=== PATIENT | female | born 1975 | race Caucasian/White ===

== ENCOUNTER 2020-06-09 10:00 | Outpatient (CLI) | payer BC, SELFPAY ==
[2020-06-09 12:09] LABS: Basophils # 0.2 10^3/uL (0.0-0.1); Basophils % 0.8 %; Eosinophils % 0.2 %; Lymphocytes # 3.4 10^3/uL (0.8-4.8); Mean Corpuscular HGB Conc 31.7 g/dL (30.0-36.0); Mean Corpuscular Hemoglobin 27.9 pg (28.0-34.0); Mean Platelet Volume 9.3 fL (7.4-10.4); Monocytes # 1.1 10^3/uL (0.2-0.9); Monocytes % 5.9 %; Neutrophils # 13.49 10^3/uL (1.8-7.7); Neutrophils % 71.3 %; Nucleated Red Blood Cells % 0.2 %; Platelet Count 199 10^3/cmm (130-400); Red Blood Count 4.66 10^6/uL (4.1-5.3); Red Cell Distribution Width 14.3 % (12.1-15.1); White Blood Count 18.9 10^3/uL (4.0-10.0)
--- NOTE | 2020-06-09 16:47 | ONC CON_ITS ---
Dr. Martin New Patient Note Patient: Jyoti Salazar Unit #: [id number]: 1975 Dicatated By: Wisam Martin M.D.Date of Visit: Jun 09, 2020 Onc MED New Patient/Consult Referring Physician: Referred Self Chief Complaint: Breast cancer. History of Present Illness: This is a 44-year-old woman with multifocal grade 2 invasive cancer of the right breast, stage IA (T1c, N1mi, M0), ER/IA negative and HER-2/kimberley positive. She had presented with redness, pain, and swelling in the right breast. Bilateral mammograms on 03/29/2020 showed no suspicious masses, calcifications, or other significant findings. Right breast ultrasound showed a 0.7 x 0.6 x 1.1 cm irregular hypoechoic mass at the 12 o'clock position of the right breast located 1 cm from the nipple. At the 12:00 subareolar region there was a 0.7 x 0.3 x 0.6 cm hypoechoic irregular mass. Both demonstrated internal vascularity, suspicious for malignancy. She underwent ultrasound guided biopsy of both lesions on 04/02/2020. Pathology showed invasive breast carcinoma of no special type, grade 2 out of 3. The breast prognostic profile showed ER and IA negative. HER-2/kimberley was positive, 3+ by IHC. CORBY 67 was high at 16%. Pathology on the subareolar lesion apparently showed papilloma. On 04/22/2020 she underwent right axillary lumpectomy at 3 sites together with right sentinel axillary lymph node biopsy/axillary node sampling. Pathology showed grade 2 invasive ductal carcinoma at 2 sites, one measuring 1.1 cm in greatest dimension and the other measuring 0.9 cm in greatest dimension. The larger lesion had associated high-grade DCIS, but not extensive. The smaller lesion showed focal extension of tumor to the inked lateral resection margin. There was no involvement in 1 sentinel axillary lymph node. There was micro metastatic carcinoma involving 1 of 7 nonsentinel lymph nodes. It measured 0.6 mm. The 3rd lumpectomy specimen showed intraductal papilloma with usual ductal hyperplasia. She then underwent bilateral mastectomy on 05/05/2020. She had medical oncology consultation with Dr. Kira Dominguez on 05/03/2020. She was recommended to undergo adjuvant chemotherapy with 6 cycles of TCH. She underwent placement of Port-A-Cath venous access device on 05/24/2020, and she began cycle 1 of TCH on 05/27/2020. She was given first cycle prophylaxis with Neulasta. Her baseline echocardiogram on 05/04/2020 showed normal LV systolic function with ejection fraction estimated at 55 to 60%. She has now moved to this area and she is seen today to continue with her adjuvant chemotherapy. She has been feeling good generally. Thus far she has had very few side effects with her chemotherapy. She had no nausea/vomiting or other acute toxicities. She was fatigued for just a day or so after she went off the steroid. She then developed some mild constipation, managed adequately with a stool softener. Her mouth felt like it had a film in it, but that subsequently resolved. She had some slight, transient epistaxis. She had a little bit of rectal bleeding over the past weekend, and that also has resolved. 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 She has had no other apparent side effects. Past Medical History: Her medical history includes anxiety, asthma, breast cancer, gastroesophageal reflux disease, hyperlipidemia, hypertension, irritable bowel syndrome, polycystic ovarian disease, and type II diabetes. Past Surgical History: She underwent ultrasound-guided biopsy of the right breast on 03/31/2020, right breast lumpectomy x 3 with axillary sentinel lymph node biopsy/axillary lymph node sampling on 04/22/2020, and bilateral mastectomy on 05/05/2020. Her other surgical/procedural history includes bilateral tympanostomy tube placement, cholecystectomy, hip resection arthroplasty, tonsillectomy, bilateral breast reconstruction cleanout on 05/17/2020, and port placement on 05/24/2020. Medications: Acetaminophen 2 (325 mg) Tablet, chewable Oral q 6 hours PRN, Albuterol Sulfate 1 Puff(s) (of 108 (90 base) mcg/act) Aerosol Powder, Breath Activated Inhalation q 6 hours, Cholecalciferol 1 (10 mcg ) Tablet, chewable Oral daily, Dapagliflozin-metFORMIN HCl ER 1 (5-1000 mg) Tablet SR 24 HR Oral b.i.d., Dexamethasone (4 mg) Tablet Oral Take as Directed, Flonase 2 [place](s) (of 50 mcg/act) Suspension Nasal daily, Lipitor 1 (20 mg) Tablet Oral at bedtime, Meclizine HCl 1 (25 mg) Tablet Oral PRN, Ondansetron HCl 1 (8 mg) Tablet Oral q 8 hours PRN, Ozempic (0.25 or 0.5 MG/DOSE) 0.5 mg (of 2 mg/1.5mL) Subcutaneous q on Sa, Paxil 1 (10 mg) Tablet Oral at bedtime, Prochlorperazine Maleate 1 (10 mg) Tablet Oral q 6 hours PRN, Singulair 1 (10 mg) Tablet Oral daily Allergies: Iodinated Contrast Dye Social History: Ms. Salazar is . She is a non-smoker. She does not drink alcohol. Family History: Both parents are still living at age 67 and both have diabetes and coronary artery disease. A 42-year-old brother has hypertension. Two sisters are in good health. Her paternal father had stomach cancer, an aunt had breast cancer, and a cousin had thyroid cancer. Review Of Symptoms: Constitutional - She had some fatigue for a day or so after going off steroid. Energy otherwise has been good. She has good appetite. She has not had fever. She does not complain of hot flashes. She has occasional sweating at night. ECOG score is 0, Eyes - No change in vision, ENMT - No hearing loss or tinnitus. She has some sinus congestion/drainage. She had had had some slight nosebleeds. Her mouth felt like it had a film and it, but that resolved. No sore throat or difficulty swallowing, Hematologic/Lymphatic - No abnormal bruising, Respiratory - No shortness of breath. No cough. No pleuritic pain or hemoptysis, Cardiovascular - No angina pain. No palpitations, Gastrointestinal - She has not had nausea/vomiting. She has occasional acid reflux, managed adequately with Tums. She tends to have loose stools associated with her irritable bowel syndrome. She had mild constipation following the chemotherapy. She had no diarrhea. Over the last weekend she had some slight rectal bleeding, Genitourinary (F) - No dysuria or hematuria. No urinary frequency. No urgency or incontinence, Musculoskeletal - No joint or bone pain, Integumentary - She has not had a skin rash. She does have a history of eczema, Neurologic - No headache or dizziness. She has had a little bit of neuropathy in her feet with the diabetes. It has not gotten any worse since the chemotherapy, Psychiatric - She has some anxiety. No depression. No insomnia. Vital Signs: Performed on Jun 09, 2020 10:55: 0, 37.04 (HIGH), 2.07 sq.m, 65 in, 100 %, 95 /min, 16 /min, 128/80 mm(hg), 97.8 F (LOW), and 222.6 lbs (HIGH). Physical Examination: Constitutional - She looks good generally, Eyes - Sclerae nonicteric. Conjunctivae clear, ENMT - No lesions noted in the oral cavity, Neck - No mass or thyromegaly, Hematologic/Lymphatic - No cervica or clavicular adenopathy, Respiratory - Lungs are clear with good air movement bilaterally, Cardiovascular - Heart rhythm is regular. There is no murmur, gallop, or rub noted, Breasts - There is 1 small area in the right mastectomy incision which is still open. It is otherwise well-healed. The left mastectomy incision appears well-healed. There are no chest wall lesions noted. There is no axillary adenopathy, Abdomen - Mildly distended but soft. Liver and spleen are not enlarged. There is no abdominal mass or ascites noted and there is no inguinal adenopathy, Back/Spine - No spine or CVA tenderness noted, Extremities - No edema. Pedal pulses are palpable bilaterally, Integumentary - No rashes. No suspicious skin lesions noted, Neurologic - No focal neurologic deficits noted. Lab/Imaging: Test performed on Jun 09, 2020 11:43 WBC 18.9 10 3/uL RBC 4.66 10 6/uL HGB 13.0 g/dL HCT 41.0 % MCV 88.0 fL MCH 27.9 pg MCHC 31.7 g/dL RDW 14.3 % Platelet Count 199 10 3/cmm MPV 9.3 fL Neutrophils 13.49 10 3/uL Lymphocytes 3.4 10 3/uL Monocytes 1.1 10 3/uL Eosinophils 0.0 10 3/uL Basophils 0.2 10 3/uL Neutrophil % 71.3 % Lymphocyte % 18.0 % Monocyte % 5.9 % Eosinophil % 0.2 % Basophils % 0.8 % NRBC % 0.2 % Problem List: 1. Multifocal grade 2 invasive cancer of the right breast, stage IA (T1c, N1mi, M0), ER/IA negative and HER-2/kimberley positive. 2. Type 2 diabetes. 3. Hyperlipidemia. 4. GERD. 5. Irritable bowel syndrome. 6. Mild asthma. 7. History of polycystic ovarian syndrome. 8. Anxiety. Problems Addressed with this Encounter and Plan: 1. Multifocal grade 2 invasive cancer of the right breast, stage IA (T1c, N1mi, M0), ER/IA negative and HER-2/kimberley positive. Her initial treatment included ultrasound guided biopsy of the right breast followed by right breast lumpectomy with axillary sentinel lymph node biopsy/axillary node sampling on 04/22/2020 and subsequent bilateral mastectomy on 05/05/2020. She is now undergoing adjuvant chemotherapy with 6 cycles of TCH. She began cycle 1 on 05/27/2020. Thus far she has been able to tolerate her chemotherapy with very minimal toxicity. She will have a CBC today to assess her blake blood counts. She will return on 06/17/2020 for her second cycle of treatment. It will be administered full dosages and with Neulasta. She also will continue the same steroid prophylaxis. 2. Type 2 diabetes. This had been poorly controlled and it is now further aggravated by the steroid requirement with her chemotherapy. As such, I will arrange endocrinology referral to Dr. Duran for diabetes management. Signed By: Wisam Martin M.D. <<Signature on File>>
== END 2020-06-09 10:01 | disposition home or self-care (01) ==
LOC: ONCMED 10:05
PROVIDERS: Visit Provider Internal Medicine Medical Oncology
DX: C50.811 Malignant neoplasm of overlapping sites of right female breast (principal); Z17.1 Estrogen receptor negative status [ER-]; E11.9 Type 2 diabetes mellitus without complications; E78.5 Hyperlipidemia, unspecified; K21.9 Gastro-esophageal reflux disease without esophagitis; K58.9 Irritable bowel syndrome, unspecified; J45.20 Mild intermittent asthma, uncomplicated; E28.2 Polycystic ovarian syndrome; F41.9 Anxiety disorder, unspecified; Z79.899 Other long term (current) drug therapy
CPT/HCPCS: 36591; 85025; 99204

== ENCOUNTER 2020-06-17 06:22 | Outpatient (CLI) | payer BC, SELFPAY ==
[2020-06-17 09:53] LABS: Alanine Aminotransferase 33 U/L (0-33); Albumin Level 4.7 g/dL (3.5-5.2); Alkaline Phosphatase 121 IU/L (35-105); Anion Gap 16.9 (5-19); Aspartate Amino Transferase 12 U/L (0-32); Blood Urea Nitrogen 19 mg/dL (6-20); Calcium 10.1 mg/dL (8.5-10.5); Carbon Dioxide 24 mmol/L (22-29); Chloride 98 mmol/L (98-107); Globulin 2.8 g/dL (1.3-4.6); Glucose 264 mg/dL (65-115); Osmolality Calculated 291 mOsm/kg (285-295); Potassium 3.9 mmol/L (3.5-5.1); Sodium 135 mmol/L (136-145); Total Bilirubin 0.3 mg/dL (0.15-1.2); Total Protein 7.5 g/dL (6.6-8.7)
[2020-06-17 09:54] LABS: Basophils # 0.1 10^3/uL (0.0-0.1); Basophils % 0.2 %; Hematocrit 39.5 % (37.0-47.0); Hemoglobin 12.6 g/dL (11.5-15.3); Lymphocytes # 2.2 10^3/uL (0.8-4.8); Mean Corpuscular HGB Conc 31.9 g/dL (30.0-36.0); Mean Corpuscular Hemoglobin 27.9 pg (28.0-34.0); Mean Corpuscular Volume 87.4 fL (81-99); Mean Platelet Volume 9.6 fL (7.4-10.4); Monocytes # 1.7 10^3/uL (0.2-0.9); Monocytes % 6.2 %; Neutrophils # 23.42 10^3/uL (1.8-7.7); Neutrophils % 84.3 %; Nucleated Red Blood Cells % 0 %; Platelet Count 370 10^3/cmm (130-400); Red Blood Count 4.52 10^6/uL (4.1-5.3); Red Cell Distribution Width 15.3 % (12.1-15.1); White Blood Count 27.8 10^3/uL (4.0-10.0)
[2020-06-17] MEDS: acetaminophen 325 mg Tablet 650 MG PO (11:05)
[2020-06-17] MEDS: famotidine 20 mg/2 mL INJ IVP (11:07)
[2020-06-17] MEDS: sodium chloride 0.9% 250 ML 75 ML IV (11:07)
[2020-06-17] MEDS: palonosetron 0.25 mg/5 mL SDV IVP (11:10)
[2020-06-17] MEDS: diphenhydrAMINE 50 mg/mL SDV 1mL 25 MG IV (11:27)
[2020-06-17] MEDS: sodium chloride 0.9% (100 ml) 100 ML 500 ML (11:27)
[2020-06-17] MEDS: pegfilgrastim 6 mg/0.6 mL Kit (onpro) SUBCUT (15:17)
== END 2020-06-17 06:23 | disposition home or self-care (01) ==
LOC: ONCMED 06:29
PROVIDERS: PCP Nurse Practitioner; Visit Provider Internal Medicine Medical Oncology
DX: Z51.11 Encounter for antineoplastic chemotherapy (principal); C50.811 Malignant neoplasm of overlapping sites of right female breast; Z17.1 Estrogen receptor negative status [ER-]; E11.9 Type 2 diabetes mellitus without complications; E78.5 Hyperlipidemia, unspecified; K21.9 Gastro-esophageal reflux disease without esophagitis; F41.9 Anxiety disorder, unspecified; E28.2 Polycystic ovarian syndrome
CPT/HCPCS: 80053; 85025; 96367; 96372; 96375; 96413; 96417; J1100; J1200; J1453; J2469; J2505; J3490; J7050; J9045; J9171; J9355

== ENCOUNTER 2020-07-07 06:09 | Outpatient (CLI) | payer BC, SELFPAY ==
[2020-07-07 10:14] LABS: Basophils % 0.4 %; Hematocrit 40.7 % (37.0-47.0); Hemoglobin 12.7 g/dL (11.5-15.3); Lymphocytes # 0.9 10^3/uL (0.8-4.8); Lymphocytes % 10.9 %; Mean Corpuscular HGB Conc 31.2 g/dL (30.0-36.0); Mean Corpuscular Hemoglobin 28.1 pg (28.0-34.0); Mean Platelet Volume 8.8 fL (7.4-10.4); Monocytes # 0.2 10^3/uL (0.2-0.9); Monocytes % 2.7 %; Neutrophils # 6.95 10^3/uL (1.8-7.7); Neutrophils % 85.3 %; Nucleated Red Blood Cells % 0 %; Platelet Count 227 10^3/cmm (130-400); Red Blood Count 4.52 10^6/uL (4.1-5.3); Red Cell Distribution Width 16.7 % (12.1-15.1); White Blood Count 8.2 10^3/uL (4.0-10.0)
[2020-07-07 10:44] LABS: Alanine Aminotransferase 48 U/L (0-33); Albumin Level 4.5 g/dL (3.5-5.2); Alkaline Phosphatase 113 IU/L (35-105); Anion Gap 14.3 (5-19); Aspartate Amino Transferase 39 U/L (0-32); Blood Urea Nitrogen 12 mg/dL (6-20); Calcium 9.3 mg/dL (8.5-10.5); Carbon Dioxide 26 mmol/L (22-29); Chloride 101 mmol/L (98-107); Globulin 2.7 g/dL (1.3-4.6); Glucose 239 mg/dL (65-115); Osmolality Calculated 292 mOsm/kg (285-295); Potassium 4.3 mmol/L (3.5-5.1); Sodium 137 mmol/L (136-145); Total Bilirubin 0.3 mg/dL (0.15-1.2); Total Protein 7.2 g/dL (6.6-8.7)
== END 2020-07-07 06:10 | disposition home or self-care (01) ==
LOC: ONCMED 06:10
PROVIDERS: PCP Nurse Practitioner; Visit Provider Internal Medicine Medical Oncology
DX: C50.811 Malignant neoplasm of overlapping sites of right female breast (principal); Z17.1 Estrogen receptor negative status [ER-]
CPT/HCPCS: 36591; 80053; 85025

== ENCOUNTER 2020-07-08 05:50 | Outpatient (CLI) | payer BC, SELFPAY ==
[2020-07-08] MEDS: acetaminophen 325 mg Tablet 650 MG PO (12:00)
[2020-07-08] MEDS: sodium chloride 0.9% 250 ML 75 ML IV (12:05)
[2020-07-08] MEDS: famotidine 20 mg/2 mL INJ IVP (12:05)
[2020-07-08] MEDS: palonosetron 0.25 mg/5 mL SDV IV (12:23)
[2020-07-08] MEDS: sodium chloride 0.9% (100 ml) 100 ML 400 ML (12:40)
[2020-07-08] MEDS: diphenhydrAMINE 50 mg/mL SDV 1mL 25 MG IV (12:40)
[2020-07-08] MEDS: fosaprepitant 150 MG in sodium chloride 0.9% 150 ML 300 MG IV (13:01)
[2020-07-08] MEDS: pegfilgrastim 6 mg/0.6 mL Kit (onpro) SUBCUT (16:25)
--- NOTE | 2020-07-17 15:09 | ONC FU_ITS ---
Elysia Blackman Patient Note Patient: Jyoti Salazar Unit #: [id number]: 1975 Dictated By: Cortney LarsonDate of Visit: Jul 08, 2020 Onc MED Follow-Up/Prog Note Chief Complaint: Breast cancer. History of Present Illness: Ms Salazar is a 44-year-old woman with multifocal grade 2 invasive cancer of the right breast, stage IA (T1c, N1mi, M0), ER/[place] negative and HER-2/kimberley positive. She had presented with redness, pain, and swelling in the right breast. Bilateral mammograms on 03/29/2020 showed no suspicious masses, calcifications, or other significant findings. Right breast ultrasound showed a 0.7 x 0.6 x 1.1 cm irregular hypoechoic mass at the 12 o'clock position of the right breast located 1 cm from the nipple. At the 12:00 subareolar region there was a 0.7 x 0.3 x 0.6 cm hypoechoic irregular mass. Both demonstrated internal vascularity, suspicious for malignancy. She underwent ultrasound guided biopsy of both lesions on 04/02/2020. Pathology showed invasive breast carcinoma of no special type, grade 2 out of 3. The breast prognostic profile showed ER and [place] negative. HER-2/kimberley was positive, 3+ by IHC. CORBY 67 was high at 16%. Pathology on the subareolar lesion apparently showed papilloma. On 04/22/2020 she underwent right axillary lumpectomy at 3 sites together with right sentinel axillary lymph node biopsy/axillary node sampling. Pathology showed grade 2 invasive ductal carcinoma at 2 sites, one measuring 1.1 cm in greatest dimension and the other measuring 0.9 cm in greatest dimension. The larger lesion had associated high-grade DCIS, but not extensive. The smaller lesion showed focal extension of tumor to the inked lateral resection margin. There was no involvement in 1 sentinel axillary lymph node. There was micro metastatic carcinoma involving 1 of 7 nonsentinel lymph nodes. It measured 0.6 mm. The 3rd lumpectomy specimen showed intraductal papilloma with usual ductal hyperplasia. She then underwent bilateral mastectomy on 05/05/2020. She had medical oncology consultation with Dr. Kira Dominguez on 05/03/2020. She was recommended to undergo adjuvant chemotherapy with 6 cycles of TCH. She underwent placement of Port-A-Cath venous access device on 05/24/2020, and she began cycle 1 of TCH on 05/27/2020. She was given first cycle prophylaxis with Neulasta. Her baseline echocardiogram on 05/04/2020 showed normal LV systolic function with ejection fraction estimated at 55 to 60%. She has now moved to this area and she was seen by Dr Martin to continue with her adjuvant chemotherapy. Her last chemotherapy with carboplatin and docetaxel trastuzumab was on June 17, 2020. She is tolerating it well overall. She states she has been feeling good overall. Thus far she has had very few side effects with her chemotherapy. She denies any fever or chills. She denies any shortness of breath or cough. She denies hemoptysis. She has had no further epistasis. She denies any mouth sores or sore throat. She states she is eating good and energy is good overall. She had no nausea/vomiting or other acute toxicities. She was fatigued for just a day or so after she went off the steroid. She then developed some mild constipation, managed adequately with a stool softener. 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 She has had no other apparent side effects. Her ECOG is 1. Past Medical History: Anxiety Asthma Breast cancer Gastroesophageal reflux disease Hyperlipidemia Hypertension Irritable bowel syndrome Polycystic ovarian disease Type II diabetes Past Surgical History: Bilateral tympanostomy tube placement Cholecystectomy Hip resection arthroplasty Tonsillectomy Port placement in 2020 Bilateral breast reconstruction cleanout in 2020 Bilateral mastectomy in 2019 Right breast lumpectomy x 3 with axillary sentinel lymph node biopsy/axillary lymph node sampling in 2019 Ultrasound-guided biopsy of the right breast in 2019 Allergies: Iodinated Contrast Dye Medications: Acetaminophen 2 (325 mg) Tablet, chewable Oral q 6 hours PRN Albuterol Sulfate 1 Puff(s) (of 108 (90 base) mcg/act) Aerosol Powder, Breath Activated Inhalation q 6 hours Cholecalciferol 1 (10 mcg ) Tablet, chewable Oral daily Dapagliflozin-metFORMIN HCl ER 1 (5-1000 mg) Tablet SR 24 HR Oral b.i.d. Dexamethasone (4 mg) Tablet Oral Take as Directed Flonase 2 [place](s) (of 50 mcg/act) Suspension Nasal daily Lipitor 1 (20 mg) Tablet Oral at bedtime Meclizine HCl 1 (25 mg) Tablet Oral PRN Ondansetron HCl 1 (8 mg) Tablet Oral q 8 hours PRN Ozempic (0.25 or 0.5 MG/DOSE) 0.5 mg (of 2 mg/1.5mL) Subcutaneous q on Sa Paxil 1 (10 mg) Tablet Oral at bedtime Prochlorperazine Maleate 1 (10 mg) Tablet Oral q 6 hours PRN Singulair 1 (10 mg) Tablet Oral daily Family History: Ms. Salazar's mother is alive: congestive heart failure, and type II diabetes, and hypertension. Ms. Housers father is alive: heart disease, and hypertension, and type II diabetes. Ms. Salazar has 1 brother who is alive: hypertension. She has 2 sisters: 2 alive. She has 1 maternal aunt who is alive: breast cancer. Both parents are still living at age 67 and both have diabetes and coronary artery disease. A 42-year-old brother has hypertension. Two sisters are in good health. Her paternal father had stomach cancer, an aunt had breast cancer, and a cousin had thyroid cancer. Social History: Ms. Salazar is . Ms. Salazar has never smoked. She has no history of drinking. She is a non-smoker. She does not drink alcohol. Review Of Symptoms: Constitutional Denies fevers, chills, night sweats, excessive fatigue or weight loss. Allergic/Immunologic No reactions. Eyes Denies significant visual changes. No diplopia. No amaurosis. ENMT Denies changes in hearing, sore throat, mouth sores, difficulty or changes in swallowing ability, and/or sinus drainage. Hematologic/Lymphatic Denies easy bruising or bleeding. The patient denies any tender or palpable lymph nodes. Respiratory Denies dyspnea on exertion, chest pain, cough or hemoptysis. Denies orthopnea. Cardiovascular Denies anginal chest pain, palpitations or orthopnea. Gastrointestinal Denies nausea, vomiting, diarrhea, GI bleeding, or constipation. Denies change in bowel habits and/or stool color, no heartburn or early satiety. Genitourinary (F) No hematuria, hesitancy, incontinence, vaginal bleeding, discharge or other problems with urination. Musculoskeletal Denies joint pain, swelling or redness. No decreased range of motion. Integumentary Denies chronic rashes, inflammation, ulcerations or skin changes. Neurologic Denies headache, blurred vision, and no areas of focal weakness or numbness. Normal gait. No sensory problems. Psychiatric Denies insomnia, depression, javier or mood swings. Vital Signs: Performed on Jul 08, 2020 10:48 Height - 65.00 in Weight - 223.0 lbs (HIGH) BSA - 2.07 sq.m BMI - 37.11 (HIGH) Temperature - 97.8 F (LOW) Pulse - 95 /min Respiration - 19 /min BP - 154/80 mm(hg) (HIGH) O2 Sat - 98 % Pain - 0,1 - No physically strenuous activity, but ambulatory and able to carry out light or sedentary work (e.g. office work, light house work). (ECOG) Physical Examination: Constitutional Alert, oriented, no acute distress. Skin pink, warm and dry. Head Normocephalic; atraumatic. Eyes Conjunctivae and sclerae are clear and without icterus. Pupils are reactive and equal. Hematologic/Lymphatic No petechiae or purpura. No tender or palpable lymph nodes in the cervical or supraclavicular areas. Respiratory Lungs are clear to auscultation without rhonchi or wheezing. Cardiovascular Regular rate and rhythm of heart without murmurs,clicks, gallops or rubs. Back/Spine Non-tender to palpation. Extremities No visible deformities, no cyanosis, clubbing or edema. Musculoskeletal No tenderness or swelling, normal range of motion without obvious weakness. Integumentary No rashes or lesions. Neurologic No sensory or motor deficits, normal cerebellar function, normal gait. Psychiatric Alert and oriented times three. Coherent speech. Verbalizes understanding of our discussions today. Laboratory:Test performed on Jul 07, 2020 10:00 Sodium 137 mmol/L Potassium 4.3 mmol/L Chloride 101 mmol/L CO2 26 mmol/L Anion Gap 14.3 BUN 12 mg/dL Creatinine 0.5 mg/dL Cr Clearance (Est) 228.8700 mL/min eGFR 134.0 mL/min Glucose 239 mg/dL Osmolality - Calculated 292 mOsm/kg Calcium 9.3 mg/dL Protein, Total 7.2 g/dL Albumin 4.5 g/dL Globulin 2.7 g/dL Bilirubin, Total 0.3 mg/dL ALT (SGPT) 48 U/L AST (SGOT) 39 U/L Alkaline Phosphatase 113 IU/L WBC 8.2 10 3/uL RBC 4.52 10 6/uL HGB 12.7 g/dL HCT 40.7 % MCV 90.0 fL MCH 28.1 pg MCHC 31.2 g/dL RDW 16.7 % Platelet Count 227 10 3/cmm MPV 8.8 fL Neutrophils 6.95 10 3/uL Lymphocytes 0.9 10 3/uL Monocytes 0.2 10 3/uL Eosinophils 0.0 10 3/uL Basophils 0.0 10 3/uL Neutrophil % 85.3 % Lymphocyte % 10.9 % Monocyte % 2.7 % Eosinophil % 0.0 % Basophils % 0.4 % NRBC % 0 % Impression: 1. Multifocal grade 2 invasive cancer of the right breast, stage IA (T1c, N1mi, M0), ER/[place] negative and HER-2/kimberley positive. 2. Type 2 diabetes. 3. Hyperlipidemia. 4. GERD. 5. Irritable bowel syndrome. 6. Mild asthma. 7. History of polycystic ovarian syndrome. 8. Anxiety. Plan: 1. Multifocal grade 2 invasive cancer of the right breast, stage IA (T1c, N1mi, M0), ER/[place] negative and HER-2/kimberley positive. Her initial treatment included ultrasound guided biopsy of the right breast followed by right breast lumpectomy with axillary sentinel lymph node biopsy/axillary node sampling on 04/22/2020 and subsequent bilateral mastectomy on 05/05/2020. She is now undergoing adjuvant chemotherapy with 6 cycles of TCH. She began cycle 1 on 05/27/2020. A. Proceed with cycle 3 carboplatin docetaxel trastuzumab at same dosing as cycle 2. Continue growth factor support as her ANC day 0 is 7000. B. Steroid compliance confirmed. We did also discuss steroid taper. I have asked her to take 1 tablet twice daily on Sunday one on Sunday and one on Sunday if needed and then stop. She is having significant fatigue and washed out feeling on day 3 and 4 post chemo. C. Labs from July 07, 2020 reviewed in detail and discussed with Ms. Salazar and a copy was given to her. WBC 8.2, hemoglobin 12.7, platelets 227,000 ANC is 7000 potassium 4.3 creatinine 0.5 her ALT is 48 AST is 39 alk phos 113 calcium is normal at 9.3 and her random glucose was 239 due to steroids. D. Cardiac monitoring her last echocardiogram was 05/03/2020. She had reported normal LVEF of 50 to 60%. Normal left wall ventricle wall thickness and cavity size. This was performed at [facility] in [place], [place]. She will be due for her next ultrasound in July 2020. E. Her last diagnostic mammogram was 03/29/2020 which was performed at [facility] at which time she also had a right breast ultrasound for abnormalities. On 04/02/2020 she underwent right breast biopsy. 2. Type 2 diabetes. This had been poorly controlled and it is now further aggravated by the steroid requirement with her chemotherapy. A. She has been referred in endocrinology, Dr Duran for further management. 3. Follow-up plan: A. we will plan to see her back in 3 weeks with CBC CMP. I have asked that she have her echocardiogram between labs and her appointment just to save her next her trip into the clinic. B. Ms. Salazar was encouraged to contact us in interim should questions or problems arise. Signed By: Cortney Larson-, AOP Wisam Martin MD <<Signature on File>>
== END 2020-07-08 05:51 ==
LOC: ONCMED 05:52
PROVIDERS: PCP Nurse Practitioner; Visit Provider Nurse Practitioner
DX: E11.65 Type 2 diabetes mellitus with hyperglycemia (principal); Z79.4 Long term (current) use of insulin; C50.911 Malignant neoplasm of unspecified site of right female breast; C50.912 Malignant neoplasm of unspecified site of left female breast
CPT/HCPCS: 96367; 96372; 96375; 96413; 96417; 99204; 99215; J1100; J1200; J1453; J2469; J2505; J3490; J7050; J9045; J9171; J9355

== ENCOUNTER 2020-07-28 06:26 | Outpatient (CLI) | payer BC, SELFPAY ==
[2020-07-28 13:32] LABS: Basophils # 0.1 10^3/uL (0.0-0.1); Basophils % 0.3 %; Hematocrit 43.8 % (37.0-47.0); Hemoglobin 13.9 g/dL (11.5-15.3); Mean Corpuscular HGB Conc 31.7 g/dL (30.0-36.0); Mean Corpuscular Hemoglobin 28.8 pg (28.0-34.0); Mean Corpuscular Volume 90.7 fL (81-99); Mean Platelet Volume 9.2 fL (7.4-10.4); Monocytes # 0.2 10^3/uL (0.2-0.9); Monocytes % 1.3 %; Neutrophils # 12.99 10^3/uL (1.8-7.7); Neutrophils % 90.3 %; Nucleated Red Blood Cells % 0 %; Platelet Count 207 10^3/cmm (130-400); Red Blood Count 4.83 10^6/uL (4.1-5.3); Red Cell Distribution Width 18.3 % (12.1-15.1); White Blood Count 14.4 10^3/uL (4.0-10.0)
[2020-07-28 13:58] LABS: Alanine Aminotransferase 40 U/L (0-33); Albumin Level 4.8 g/dL (3.5-5.2); Alkaline Phosphatase 104 IU/L (35-105); Anion Gap 18.4 (5-19); Aspartate Amino Transferase 25 U/L (0-32); Blood Urea Nitrogen 16 mg/dL (6-20); Calcium 9.8 mg/dL (8.5-10.5); Carbon Dioxide 24 mmol/L (22-29); Chloride 98 mmol/L (98-107); Chol HDL Ratio 3.15 mg/dL (0.0-4.40); Cholesterol 148 mg/dL (0-200); Globulin 3.1 g/dL (1.3-4.6); Glucose 252 mg/dL (65-115); HDL Cholesterol 47 mg/dL (60-100); LDL Cholesterol Calculated 67 mg/dL (50-129); Osmolality Calculated 292 mOsm/kg (285-295); Potassium 4.4 mmol/L (3.5-5.1); Sodium 136 mmol/L (136-145); Total Bilirubin 0.3 mg/dL (0.15-1.2); Total Protein 7.9 g/dL (6.6-8.7); Triglycerides 171 mg/dL (0-150); VLDL Cholestrol Calculation 34 mg/dL (0-30)
[2020-07-28 14:47] LABS: Estmated Average Glucose 194; Hemoglobin A1C 8.4 % (4.0-6.0)
== END 2020-07-28 06:27 | disposition home or self-care (01) ==
LOC: ONCMED 06:28
PROVIDERS: Nurse Practitioner; PCP Nurse Practitioner; Visit Provider Internal Medicine Medical Oncology
DX: C50.811 Malignant neoplasm of overlapping sites of right female breast (principal); Z17.1 Estrogen receptor negative status [ER-]; E11.9 Type 2 diabetes mellitus without complications; I10 Essential (primary) hypertension; E78.5 Hyperlipidemia, unspecified; K21.9 Gastro-esophageal reflux disease without esophagitis; F41.9 Anxiety disorder, unspecified; E28.2 Polycystic ovarian syndrome
CPT/HCPCS: 36591; 80053; 80061; 83036; 85025

== ENCOUNTER 2020-07-29 06:06 | Outpatient (CLI) | payer BC, SELFPAY ==
[2020-07-29 11:03] LABS: Add Urine Microscopic? NO
[2020-07-29 11:09] LABS: Bilirubin Urine Neg (Negative); Blood Urine Neg (Negative); Glucose Urine UA 4+ (Normal); Ketones Urine 1+ (Negative); Leukocyte Esterase Urine Negative (Negative); Nitrate Urine Negative (Negative); Protein Urine Neg (Negative); Urine Appearance Clear (CLEAR); Urine Color Yellow (Yellow); Urobilinogen Urine Norm (Negative); pH Urine 5 (5-7)
[2020-07-29] MEDS: sodium chloride 0.9% 250 ML 75 ML IV (11:30)
[2020-07-29] MEDS: acetaminophen 325 mg Tablet 650 MG PO (11:30)
[2020-07-29] MEDS: famotidine 20 mg/2 mL INJ IVP (11:30)
[2020-07-29] MEDS: diphenhydrAMINE 50 mg/mL SDV 1mL 25 MG IV (11:31)
[2020-07-29] MEDS: palonosetron 0.25 mg/5 mL SDV IVP (11:32)
[2020-07-29] MEDS: pegfilgrastim 6 mg/0.6 mL Kit (onpro) SUBCUT (15:45)
--- NOTE | 2020-08-08 21:52 | ONC FU_ITS ---
[facility] Patient Note Patient: Jyoti Salazar Unit #: [id number]: 1975 Dictated By: Cortney LarsonDate of Visit: Jul 29, 2020 Onc MED Follow-Up/Prog Note Chief Complaint: Breast cancer. History of Present Illness: Ms Salazar is a 44-year-old woman with multifocal grade 2 invasive cancer of the right breast, stage IA (T1c, N1mi, M0), ER/AL negative and HER-2/kimberley positive. She had presented with redness, pain, and swelling in the right breast. Bilateral mammograms on 03/29/2020 showed no suspicious masses, calcifications, or other significant findings. Right breast ultrasound showed a 0.7 x 0.6 x 1.1 cm irregular hypoechoic mass at the 12 o'clock position of the right breast located 1 cm from the nipple. At the 12:00 subareolar region there was a 0.7 x 0.3 x 0.6 cm hypoechoic irregular mass. Both demonstrated internal vascularity, suspicious for malignancy. She underwent ultrasound guided biopsy of both lesions on 04/02/2020. Pathology showed invasive breast carcinoma of no special type, grade 2 out of 3. The breast prognostic profile showed ER and AL negative. HER-2/kimberley was positive, 3+ by IHC. CORBY 67 was high at 16%. Pathology on the subareolar lesion apparently showed papilloma. On 04/22/2020 she underwent right axillary lumpectomy at 3 sites together with right sentinel axillary lymph node biopsy/axillary node sampling. Pathology showed grade 2 invasive ductal carcinoma at 2 sites, one measuring 1.1 cm in greatest dimension and the other measuring 0.9 cm in greatest dimension. The larger lesion had associated high-grade DCIS, but not extensive. The smaller lesion showed focal extension of tumor to the inked lateral resection margin. There was no involvement in 1 sentinel axillary lymph node. There was micro metastatic carcinoma involving 1 of 7 nonsentinel lymph nodes. It measured 0.6 mm. The 3rd lumpectomy specimen showed intraductal papilloma with usual ductal hyperplasia. She then underwent bilateral mastectomy on 05/05/2020. She had medical oncology consultation with Dr. Kira Dominguez on 05/03/2020. She was recommended to undergo adjuvant chemotherapy with 6 cycles of TCH. She underwent placement of Port-A-Cath venous access device on 05/24/2020, and she began cycle 1 of TCH on 05/27/2020. She was given first cycle prophylaxis with Neulasta. Her baseline echocardiogram on 05/04/2020 showed normal LV systolic function with ejection fraction estimated at 55 to 60%. She has now moved to this area and she was seen by Dr Martin to continue with her adjuvant chemotherapy. Her last chemotherapy with carboplatin and docetaxel, trastuzumab was on July 08, 2020. Ms Salazar is here today for followup. She is due for cycle 4-day 1 carboplatin docetaxel trastuzumab. She is also receiving support with growth factors with Neulasta Onpro. She is tolerating it well overall. She states she has been feeling good overall, however she is having some increase in fatigue right after chemo. This did not improve with a steroid taper with cycle 3. She denies any fever or chills. She denies any shortness of breath or cough. She denies hemoptysis. She has had no further epistasis. She denies any mouth sores or sore throat. She states she is eating good and energy is ok overall. She reports she did have some mild nausea and did take nausea medicine once or twice after the last chemo but it resolved easily. She had severe nausea/vomiting or other acute toxicities. She was fatigued for just a day or so after she went off the steroid. She then developed some mild constipation, managed adequately with a stool softener. 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 She has development of a non itching macular rash in her lateral breast/axillary regiong bilaterally. It presented after her last chemotherapy. It did not well up and has not been itching. She states it actually is some better now and is almost gone. She reports that she has added Levemir and her sugars have greatly improved. She is working with her primary care regarding her hyperglycemia. Her ECOG is 1. Past Medical History: Anxiety Asthma Breast cancer Gastroesophageal reflux disease Hyperlipidemia Hypertension Irritable bowel syndrome Polycystic ovarian disease Type II diabetes Past Surgical History: Bilateral tympanostomy tube placement Cholecystectomy Hip resection arthroplasty Tonsillectomy Port placement in 2020 Bilateral breast reconstruction cleanout in 2020 Bilateral mastectomy in 2019 Right breast lumpectomy x 3 with axillary sentinel lymph node biopsy/axillary lymph node sampling in 2019 Ultrasound-guided biopsy of the right breast in 2020 Allergies: Iodinated Contrast Dye Medications: Acetaminophen 2 (325 mg) Tablet, chewable Oral q 6 hours PRN Albuterol Sulfate 1 Puff(s) (of 108 (90 base) mcg/act) Aerosol Powder, Breath Activated Inhalation q 6 hours Cholecalciferol 1 (10 mcg ) Tablet, chewable Oral daily Dapagliflozin-metFORMIN HCl ER 1 (5-1000 mg) Tablet SR 24 HR Oral b.i.d. Dexamethasone (4 mg) Tablet Oral Take as Directed Flonase 2 [place](s) (of 50 mcg/act) Suspension Nasal daily Levemir FlexTouch Subcutaneous Lipitor 1 (20 mg) Tablet Oral at bedtime Meclizine HCl 1 (25 mg) Tablet Oral PRN NovoLOG FlexPen Subcutaneous Ondansetron HCl 1 (8 mg) Tablet Oral q 8 hours PRN Ozempic (0.25 or 0.5 MG/DOSE) 0.5 mg (of 2 mg/1.5mL) Subcutaneous q on Sa Paxil 1 (10 mg) Tablet Oral at bedtime Prochlorperazine Maleate 1 (10 mg) Tablet Oral q 6 hours PRN Singulair 1 (10 mg) Tablet Oral daily Family History: Ms. Salazar's mother is alive: congestive heart failure, and type II diabetes, and hypertension. Ms. Salazar's father is alive: heart disease, and hypertension, and type II diabetes. Ms. Salazar has 1 brother who is alive: hypertension. She has 2 sisters: 2 alive. She has 1 maternal aunt who is alive: breast cancer. Both parents are still living at age 67 and both have diabetes and coronary artery disease. A 42-year-old brother has hypertension. Two sisters are in good health. Her paternal father had stomach cancer, an aunt had breast cancer, and a cousin had thyroid cancer. Social History: Ms. Salazar is . Ms. Salazar has never smoked. She has no history of drinking. She is a non-smoker. She does not drink alcohol. Review Of Symptoms: Constitutional Denies fevers, chills, night sweats, excessive fatigue or weight loss. She has had an increase in fatigue but still doing ADLS without assistance. Eyes Denies significant visual changes. No diplopia. No amaurosis. ENMT Denies changes in hearing, sore throat, mouth sores, difficulty or changes in swallowing ability, and/or sinus drainage. Hematologic/Lymphatic Denies easy bruising or bleeding. The patient denies any tender or palpable lymph nodes. Respiratory Denies dyspnea on exertion, chest pain, cough or hemoptysis. Denies orthopnea. Cardiovascular Denies anginal chest pain, palpitations or orthopnea. Gastrointestinal Denies nausea, vomiting, diarrhea, GI bleeding, or constipation. Denies change in bowel habits and/or stool color, no heartburn or early satiety. Genitourinary (F) No hematuria, hesitancy, incontinence, vaginal bleeding, discharge or other problems with urination. Musculoskeletal Denies joint pain, swelling or redness. No decreased range of motion. Integumentary Denies chronic rashes, inflammation, ulcerations or skin changes. Slight rash in axillary and lateral side of breast bilaterally. It is not itchy and has not had whelps or blisters. No exudate. Neurologic Denies headache, blurred vision, and no areas of focal weakness or numbness. Normal gait. No sensory problems. Psychiatric Denies insomnia, depression, javier or mood swings. Vital Signs: Performed on Jul 29, 2020 10:20 Height - 65.00 in Weight - 219.8 lbs (LOW) BSA - 2.06 sq.m BMI - 36.58 (HIGH) Temperature - 97.9 F (LOW) Pulse - 105 /min (HIGH) Respiration - 16 /min BP - 132/79 mm(hg) O2 Sat - 98 % Pain - 0,1 - No physically strenuous activity, but ambulatory and able to carry out light or sedentary work (e.g. office work, light house work). (ECOG) Physical Examination: Constitutional Alert, oriented, no acute distress. Skin pink, warm and dry. Head Normocephalic; atraumatic. Eyes Conjunctivae and sclerae are clear and without icterus. Pupils are reactive and equal. Hematologic/Lymphatic No petechiae or purpura. No tender or palpable lymph nodes in the cervical or supraclavicular areas. Respiratory Lungs are clear to auscultation without rhonchi or wheezing. Cardiovascular Regular rate and rhythm of heart without murmurs,clicks, gallops or rubs. Breasts scattered, flat, mildly erythemic macules on laterally area between breast region and axilla bilaterally-no other evidence of macules noted on chest wall or back, arms or legs. Back/Spine Non-tender to palpation. Extremities No visible deformities, no cyanosis, clubbing or edema. Musculoskeletal No tenderness or swelling, normal range of motion without obvious weakness. Integumentary No rashes or lesions. Neurologic No sensory or motor deficits, normal cerebellar function, normal gait. Psychiatric Alert and oriented times three. Coherent speech. Verbalizes understanding of our discussions today. Laboratory:Test performed on Jul 29, 2020 10:20 Ua Color Yellow Ua Appearance Clear Ua Glucose 4+ Ua Bilirubin Neg Ua Ketones 1+ Ua Specific [place] 1.020 Ua Blood Neg Ua pH 5 Ua Protein Neg Ua Nitrites Negative Ua Leukocyte Esterase Negative Test performed on Jul 28, 2020 12:55 WBC 14.4 10 3/uL RBC 4.83 10 6/uL HGB 13.9 g/dL HCT 43.8 % MCV 90.7 fL MCH 28.8 pg MCHC 31.7 g/dL RDW 18.3 % Platelet Count 207 10 3/cmm MPV 9.2 fL Neutrophils 12.99 10 3/uL Lymphocytes 1.0 10 3/uL Monocytes 0.2 10 3/uL Eosinophils 0.0 10 3/uL Basophils 0.1 10 3/uL Neutrophil % 90.3 % Lymphocyte % 7.0 % Monocyte % 1.3 % Eosinophil % 0.0 % Basophils % 0.3 % NRBC % 0 % Test performed on Jul 28, 2020 10:53 Creatinine 0.5 mg/dL Cr Clearance (Est) 228.87 mL/min Test performed on Jul 07, 2020 10:00 Sodium 137 mmol/L Potassium 4.3 mmol/L Chloride 101 mmol/L CO2 26 mmol/L Anion Gap 14.3 BUN 12 mg/dL eGFR 134.0 mL/min Glucose 239 mg/dL Osmolality - Calculated 292 mOsm/kg Calcium 9.3 mg/dL Protein, Total 7.2 g/dL Albumin 4.5 g/dL Globulin 2.7 g/dL Bilirubin, Total 0.3 mg/dL ALT (SGPT) 48 U/L AST (SGOT) 39 U/L Alkaline Phosphatase 113 IU/L Impression: 1. Multifocal grade 2 invasive cancer of the right breast, stage IA (T1c, N1mi, M0), ER/AL negative and HER-2/kimberley positive. 2. Type 2 diabetes. 3. Hyperlipidemia. 4. GERD. 5. Irritable bowel syndrome. 6. Mild asthma. 7. History of polycystic ovarian syndrome. 8. Anxiety. Plan: 1. Multifocal grade 2 invasive cancer of the right breast, stage IA (T1c, N1mi, M0), ER/AL negative and HER-2/kimberley positive. Her initial treatment included ultrasound guided biopsy of the right breast followed by right breast lumpectomy with axillary sentinel lymph node biopsy/axillary node sampling on 04/22/2020 and subsequent bilateral mastectomy on 05/05/2020. She is now undergoing adjuvant chemotherapy with 6 cycles of TCH. She began cycle 1 on 05/27/2020. A. Proceed with cycle 4 carboplatin/docetaxel/trastuzumab at same dosing as cycle 3. B. Steroid compliance confirmed. We did also discuss repeating the steroid taper from cycle 3 for her fatigue after treatment. We have elected not to pursue this as she did not feel it benefited too much. Instead we will have her try hydration and supportive care tomorrow. She is having significant fatigue and washed out feeling on day 3 and 4 post chemo. C. Labs from July 28, 2020 reviewed in detail and discussed with Ms. Salazar and a copy was given to her. WBC 14.4, hemoglobin 13.9, platelets 207,000 ANC is 13,000. Her creatinine is 0.5. Random glucose 252 hemoglobin A1c 8.4 AST is 25 ALT is 40 alk phos 104 D. Cardiac monitoring her last echocardiogram was 05/03/2020. She had reported normal LVEF of 50 to 60%. Normal left wall ventricle wall thickness and cavity size. This was performed at [facility] in [place], [place]. She is scheduled for her next ultrasound on July 30, 2020. E. Her last diagnostic mammogram was 03/29/2020 which was performed at [facility] at which time she also had a right breast ultrasound for abnormalities. On 04/02/2020 she underwent right breast biopsy. She had bilateral mastectomies on 05/05/2020. 2. Type 2 diabetes. This had been poorly controlled and it is now further aggravated by the steroid requirement with her chemotherapy. A. She has been referred in endocrinology, Dr Duran for further management. B. She reports that Levemir has been added to her current diabetic regimen. C. Her hemoglobin A1c today is 8.4 with an average glucose of 194. 3. Follow-up plan: A. we will plan to see her back in 3 weeks with CBC CMP. B. She is encouraged to call us if the rash worsens as we may need to give her steroid cream. I am hesitant to do any more steroids as she is already hyperglycemic. C. We have requested BRCA testing. D. Ms. Salazar was encouraged to contact us in interim should questions or problems arise. Signed By: Cortney Larson-, [facility] Wisam Martin MD <<Signature on File>>
== END 2020-07-29 06:07 | disposition home or self-care (01) ==
LOC: ONCMED 06:07
PROVIDERS: PCP Nurse Practitioner; Visit Provider Nurse Practitioner
DX: Z51.11 Encounter for antineoplastic chemotherapy (principal); C50.811 Malignant neoplasm of overlapping sites of right female breast; Z17.1 Estrogen receptor negative status [ER-]; E11.9 Type 2 diabetes mellitus without complications; E78.5 Hyperlipidemia, unspecified; K21.9 Gastro-esophageal reflux disease without esophagitis; K58.9 Irritable bowel syndrome, unspecified; J45.20 Mild intermittent asthma, uncomplicated; F41.9 Anxiety disorder, unspecified; E28.2 Polycystic ovarian syndrome; Z79.899 Other long term (current) drug therapy
CPT/HCPCS: 81003; 96367; 96372; 96375; 96413; 96417; 99214; J1100; J1200; J1453; J2469; J2505; J3490; J7050; J9045; J9171; J9355

== ENCOUNTER 2020-07-30 09:10 | Outpatient (CLI) | payer BC, SELFPAY ==
--- NOTE | 2020-07-30 09:18 | USCV_ITS ---
Jyoti Salazar Age: 44 Gender: F : 1975 Exam Date: 07/30/2020 09:28 Ordering Phys: Lexi Blackman NP Technologist: Karon Santoyo Exam Location: [facility] [place] Indication: CHEMO TREATMENT BP: / HR: 93 Rhythm: Sinus Technical Quality: Adequate MEASUREMENTS (Male / Female) Normal Values 2D ECHO LV Diastolic Diameter PLAX 4.2 cm 4.2 - 5.9 / 3.9 - 5.3 cm LV Systolic Diameter PLAX 2.6 cm LV Chamber Size 3.1 cm IVS Diastolic Thickness 1.6 cm 0.6 - 1.0 / 0.6 - 0.9 cm IVS Systolic Thickness 2.0 cm LVPW Diastolic Thickness 1.5 cm 0.6 - 1.0 / 0.6 - 0.9 cm LVPW Systolic Thickness 1.8 cm RV Chamber Size 3.1 cm LV Ejection Fraction 2D Teich 66.9 % LA Diameter 4.6 cm LA Width 2.8 cm LA Height 4.5 cm RA Width 3.4 cm RA Height 3.8 cm Aorta at Sinotubular Diameter 2.4 cm M-MODE Aortic Annulus Diameter 3.1 cm LA Ao Ratio MM 1.5 FINDINGS Left Ventricle Normal left ventricular size and systolic function. Left ventricular ejection fraction is estimated at 55%. Although no diagnostic regional wall motion abnormality could be identified, this possibility cannot be completely excluded based on the study. Right Ventricle Normal right ventricular size and systolic function. Right Atrium Normal right atrial size. Left Atrium Normal left atrial size. Mitral Valve Thickened mitral valve. Aortic Valve Aortic valve not well visualized. Tricuspid Valve Structurally normal tricuspid valve. Trace tricuspid valve regurgitation. Pulmonic Valve Pulmonic valve not well visualized. Pericardium No pericardial effusion. Aorta Normal sized aortic root. CONCLUSIONS 1. This is a technically difficult study. 2. Normal left ventricular size and systolic function. Left ventricular ejection fraction is estimated at 55 %. Although no diagnostic regional wall motion abnormality could be identified, this possibility cannot be completely excluded based on the study. 3. Normal right ventricular size and systolic function. 4. No significant valvular abnormality. 5. Recommend repeat studies for monitoring left ventricular function during high risk chemotherapy be done with echo contrast. Dominique Bailon MD (Electronically Signed) Final Date: 30 July 2020 14:21 Amended: 30 July 2020 14:32 C
[2020-07-30] MEDS: sodium chloride 0.9% 1,000 ML 999 ML IV (10:06)
== END 2020-07-30 09:11 | disposition home or self-care (01) ==
LOC: US 09:13 → ONCMED 09:45
PROVIDERS: PCP Nurse Practitioner; Visit Provider Nurse Practitioner
DX: Z51.81 Encounter for therapeutic drug level monitoring (principal); Z79.899 Other long term (current) drug therapy; C50.811 Malignant neoplasm of overlapping sites of right female breast; Z17.1 Estrogen receptor negative status [ER-]
CPT/HCPCS: 93308; 93325; 96360; J7030

== ENCOUNTER 2020-08-18 06:37 | Outpatient (CLI) | payer BC, SELFPAY ==
[2020-08-18 10:08] LABS: Basophils % 0.3 %; Eosinophils % 0.1 %; Hematocrit 43.4 % (37.0-47.0); Hemoglobin 13.5 g/dL (11.5-15.3); Lymphocytes # 1.2 10^3/uL (0.8-4.8); Lymphocytes % 9.8 %; Mean Corpuscular HGB Conc 31.1 g/dL (30.0-36.0); Mean Corpuscular Hemoglobin 29.2 pg (28.0-34.0); Mean Corpuscular Volume 93.7 fL (81-99); Mean Platelet Volume 9.5 fL (7.4-10.4); Monocytes # 0.3 10^3/uL (0.2-0.9); Neutrophils % 86.9 %; Nucleated Red Blood Cells % 0 %; Platelet Count 177 10^3/cmm (130-400); Red Blood Count 4.63 10^6/uL (4.1-5.3); Red Cell Distribution Width 19.7 % (12.1-15.1); White Blood Count 12.3 10^3/uL (4.0-10.0)
[2020-08-18 10:28] LABS: Alanine Aminotransferase 35 U/L (0-33); Albumin Level 4.7 g/dL (3.5-5.2); Alkaline Phosphatase 112 IU/L (35-105); Aspartate Amino Transferase 24 U/L (0-32); Blood Urea Nitrogen 16 mg/dL (6-20); Calcium 8.8 mg/dL (8.5-10.5); Carbon Dioxide 23 mmol/L (22-29); Chloride 100 mmol/L (98-107); Globulin 2.7 g/dL (1.3-4.6); Glucose 308 mg/dL (65-115); Osmolality Calculated 299 mOsm/kg (285-295); Sodium 138 mmol/L (136-145); Total Bilirubin 0.2 mg/dL (0.15-1.2); Total Protein 7.4 g/dL (6.6-8.7)
== END 2020-08-18 06:38 | disposition home or self-care (01) ==
LOC: ONCMED 06:39
PROVIDERS: PCP Nurse Practitioner; Visit Provider Internal Medicine Medical Oncology
DX: C50.911 Malignant neoplasm of unspecified site of right female breast (principal); C50.912 Malignant neoplasm of unspecified site of left female breast; E11.65 Type 2 diabetes mellitus with hyperglycemia; Z79.4 Long term (current) use of insulin
CPT/HCPCS: 36591; 80053; 85025; 99214

== ENCOUNTER 2020-09-10 07:46 | Outpatient (RCR) | payer BC, SELFPAY ==
[2020-08-19] MEDS: sodium chloride 0.9% 250 ML 75 ML IV (11:00)
[2020-08-19] MEDS: acetaminophen 325 mg Tablet 650 MG PO (11:00)
[2020-08-19] MEDS: palonosetron 0.25 mg/5 mL SDV IV (11:03)
[2020-08-19] MEDS: diphenhydrAMINE 50 mg/mL SDV 1mL 25 MG IV (11:05)
[2020-08-19] MEDS: famotidine 20 mg/2 mL INJ IVP (11:23)
[2020-08-19] MEDS: fosaprepitant 150 MG in sodium chloride 0.9% 150 ML 300 MG IV (11:24)
[2020-08-19] MEDS: pegfilgrastim 6 mg/0.6 mL Kit (onpro) SUBCUT (15:00)
[2020-08-20] MEDS: sodium chloride 0.9% 1,000 ML 999 ML IV (09:16)
--- NOTE | 2020-08-22 08:04 | ONC FU_ITS ---
Dr. Martin Patient Follow-Up Note Patient: Jyoti Salazar Unit #: [id number]: 1975 Dicatated By: Wisam Martin M.D.Date of Visit:Aug 19, 2020 Onc Med Follow-up/Prog Note Chief Complaint: Breast cancer. History of Present Illness: This is a 44-year-old woman with multifocal grade 2 invasive cancer of the right breast, stage IA (T1c, N1mi, M0), ER/[place] negative and HER-2/kimberley positive. She had presented with redness, pain, and swelling in the right breast. Bilateral mammograms on 03/29/2020 showed no suspicious masses, calcifications, or other significant findings. Right breast ultrasound showed a 0.7 x 0.6 x 1.1 cm irregular hypoechoic mass at the 12 o'clock position of the right breast located 1 cm from the nipple. At the 12:00 subareolar region there was a 0.7 x 0.3 x 0.6 cm hypoechoic irregular mass. Both demonstrated internal vascularity, suspicious for malignancy. She underwent ultrasound guided biopsy of both lesions on 04/02/2020. Pathology showed invasive breast carcinoma of no special type, grade 2 out of 3. The breast prognostic profile showed ER and [place] negative. HER-2/kimberley was positive, 3+ by IHC. CORBY 67 was high at 16%. Pathology on the subareolar lesion apparently showed papilloma. On 04/22/2020 she underwent right axillary lumpectomy at 3 sites together with right sentinel axillary lymph node biopsy/axillary node sampling. Pathology showed grade 2 invasive ductal carcinoma at 2 sites, one measuring 1.1 cm in greatest dimension and the other measuring 0.9 cm in greatest dimension. The larger lesion had associated high-grade DCIS, but not extensive. The smaller lesion showed focal extension of tumor to the inked lateral resection margin. There was no involvement in 1 sentinel axillary lymph node. There was micro metastatic carcinoma involving 1 of 7 nonsentinel lymph nodes. It measured 0.6 mm. The 3rd lumpectomy specimen showed intraductal papilloma with usual ductal hyperplasia. She then underwent bilateral mastectomy on 05/05/2020. She had medical oncology consultation with Dr. Kira Dominguez on 05/03/2020. She was recommended to undergo adjuvant chemotherapy with 6 cycles of TCH. She underwent placement of Port-A-Cath venous access device on 05/24/2020, and she began cycle 1 of TCH on 05/27/2020. She was given first cycle prophylaxis with Neulasta. Her baseline echocardiogram on 05/04/2020 showed normal LV systolic function with ejection fraction estimated at 55 to 60%. She was seen here initially on 06/09/2020, as she had moved to this area and she wished to continue her further chemotherapy locally. Her genetic screening was unrevealing. Her other medical illnesses include hypertension, hyperlipidemia, type 2 diabetes, asthma, GERD, irritable bowel syndrome, and polycystic ovarian disease. She has a history of eczema. She is a non-smoker. INTERIM HISTORY: She returned on 06/17/2020 for cycle 2 of TCH. She tolerated that treatment well and she continued with cycle 3 on 07/08/2020 and with cycle 4 on 07/29/2020. She is seen for a scheduled visit. She reported increased fatigue and somnolence following her 3rd cycle of chemotherapy, but with cycle 4 she tolerated treatment much better when she received hydration on day 2. She otherwise has had good energy and she has normal activity. Her appetite is good. She has not had fever. She does not have actual hot flashes, but she does complain that she sweats all the time. She was having horrible sinus drainage, but that has improved now. She has not had mouth sores. She has no shortness of breath, cough, or chest pain. She has not been having nausea, but she has been having acid reflux symptoms despite taking Prilosec. Bowel and bladder function have been okay. In particular, she has not been having any diarrhea. She has no significant joint or bone pain. She does not complain of headache or dizziness. She has a little bit of numbness on the ends of her toes and on the tip of her tongue. She has developed a rash on her right leg. Medications: Acetaminophen 2 (325 mg) Tablet, chewable Oral q 6 hours PRN, Albuterol Sulfate 1 Puff(s) (of 108 (90 base) mcg/act) Aerosol Powder, Breath Activated Inhalation q 6 hours, Cholecalciferol 1 (10 mcg ) Tablet, chewable Oral daily, Dapagliflozin-metFORMIN HCl ER 1 (5-1000 mg) Tablet SR 24 HR Oral b.i.d., Dexamethasone (4 mg) Tablet Oral Take as Directed, Flonase 2 [place](s) (of 50 mcg/act) Suspension Nasal daily, Levemir FlexTouch Subcutaneous, Lipitor 1 (20 mg) Tablet Oral at bedtime, Meclizine HCl 1 (25 mg) Tablet Oral PRN, NovoLOG FlexPen Subcutaneous, Ondansetron HCl 1 (8 mg) Tablet Oral q 8 hours PRN, Ozempic (0.25 or 0.5 MG/DOSE) 0.5 mg (of 2 mg/1.5mL) Subcutaneous q on Sa, Paxil 1 (10 mg) Tablet Oral at bedtime, Prochlorperazine Maleate 1 (10 mg) Tablet Oral q 6 hours PRN, Singulair 1 (10 mg) Tablet Oral daily Allergies: Iodinated Contrast Dye Vital Signs: Performed on Aug 19, 2020 09:55 Height - 65.00 in Weight - 222 lbs (HIGH) BSA - 2.07 sq.m BMI - 36.94 (HIGH) Temperature - 97.2 F (LOW) Pulse - 102 /min (HIGH) Respiration - 18 /min BP - 163/90 mm(hg) (HIGH) O2 Sat - 97 % Pain - 0 Fatigue - 0 Physical Examination: Constitutional - She looks good generally, Eyes - Sclerae nonicteric. Conjunctivae clear, ENMT - No lesions noted in the oral cavity, Hematologic/Lymphatic - No cervical, clavicular, or axillary adenopathy, Respiratory - Lungs are clear with good air movement bilaterally, Cardiovascular - Heart rhythm is regular. There is a I/ systolic murmur. There is no gallop or rub noted, Abdomen - Soft. Liver and spleen are not enlarged. There is no abdominal mass or ascites noted and there is no inguinal adenopathy, Extremities - No edema, Integumentary - There is a cluster of healing erythematous lesions over the anterolateral aspect of the right thigh and there is a patch of erythema over the right heel, Neurologic - No focal neurologic deficits noted. Lab/Imaging: Hold CBC shows hemoglobin 13.5 g, white blood cell count 12,300, and platelet count 177,000. Comprehensive metabolic profile is unremarkable except for elevated nonfasting blood sugar. Problem List: 1. Multifocal grade 2 invasive cancer of the right breast, stage IA (T1c, N1mi, M0), ER/[place] negative and HER-2/kimberley positive. 2. Type 2 diabetes. 3. Hyperlipidemia. 4. GERD. 5. Irritable bowel syndrome. 6. Mild asthma. 7. History of polycystic ovarian syndrome. 8. Anxiety. Problems Addressed with this Encounter and Plan: Patient with multifocal grade 2 invasive cancer of the right breast, stage IA (T1c, N1mi, M0), ER/[place] negative and HER-2/kimberley positive. Her initial treatment included ultrasound guided biopsy of the right breast followed by right breast lumpectomy with axillary sentinel lymph node biopsy/axillary node sampling on 04/22/2020 and subsequent bilateral mastectomy on 05/05/2020. She has been undergoing adjuvant chemotherapy with TCH. She began cycle 1 on 05/27/2020. She tolerated well and she has been able to continue treatment at 3-week intervals with no dose reductions or delays. She had reported increased fatigue and somnolence following cycle 3, but she tolerated cycle 4 better with IV hydration administered on day 2. Overall, she has been tolerating treatment very well. Her blood counts remain adequate and she is having only minimal neuropathy symptoms. She will proceed now with her 5th cycle of treatment. Dosages remain the same. She will come in for hydration on day 2. She returns in 3 weeks. Signed By: Wisam Martin M.D. <<Signature on File>>
[2020-09-08 10:34] LABS: Basophils # 0.1 10^3/uL (0.0-0.1); Basophils % 0.3 %; Hematocrit 41.6 % (37.0-47.0); Hemoglobin 13.4 g/dL (11.5-15.3); Lymphocytes % 6.9 %; Mean Corpuscular HGB Conc 32.2 g/dL (30.0-36.0); Mean Corpuscular Hemoglobin 30.4 pg (28.0-34.0); Mean Corpuscular Volume 94.3 fL (81-99); Mean Platelet Volume 8.9 fL (7.4-10.4); Monocytes # 0.2 10^3/uL (0.2-0.9); Monocytes % 1.2 %; Neutrophils # 13.03 10^3/uL (1.8-7.7); Neutrophils % 90.5 %; Nucleated Red Blood Cells % 0 %; Platelet Count 168 10^3/cmm (130-400); Red Blood Count 4.41 10^6/uL (4.1-5.3); Red Cell Distribution Width 18.8 % (12.1-15.1); White Blood Count 14.4 10^3/uL (4.0-10.0)
[2020-09-08 11:00] LABS: Alanine Aminotransferase 39 U/L (0-33); Albumin Level 4.6 g/dL (3.5-5.2); Alkaline Phosphatase 96 IU/L (35-105); Anion Gap 18.6 (5-19); Aspartate Amino Transferase 28 U/L (0-32); Blood Urea Nitrogen 16 mg/dL (6-20); Calcium 9.3 mg/dL (8.5-10.5); Carbon Dioxide 24 mmol/L (22-29); Chloride 97 mmol/L (98-107); Globulin 2.7 g/dL (1.3-4.6); Glomerular Filtration Rate 173.4 mL/min (90-130); Glucose 244 mg/dL (65-115); Osmolality Calculated 289 mOsm/kg (285-295); Potassium 4.6 mmol/L (3.5-5.1); Sodium 135 mmol/L (136-145); Total Bilirubin 0.3 mg/dL (0.15-1.2); Total Protein 7.3 g/dL (6.6-8.7)
[2020-09-09] MEDS: acetaminophen 325 mg Tablet 650 MG PO (11:33)
[2020-09-09] MEDS: sodium chloride 0.9% 250 ML 75 ML IV (11:33)
[2020-09-09] MEDS: famotidine 20 mg/2 mL INJ IVP (11:33)
[2020-09-09] MEDS: diphenhydrAMINE 50 mg/mL SDV 1mL 25 MG IV (11:35)
[2020-09-09] MEDS: sodium chloride 0.9% (100 ml) 100 ML 400 ML (11:35)
[2020-09-09] MEDS: palonosetron 0.25 mg/5 mL SDV IV (11:56)
[2020-09-09] MEDS: fosaprepitant 150 MG in sodium chloride 0.9% 150 ML 300 MG IV (12:14)
[2020-09-09] MEDS: sodium chloride 0.9% (100 ml) 100 ML 75 ML (14:35)
[2020-09-09] MEDS: pegfilgrastim 6 mg/0.6 mL Kit (onpro) SUBCUT (15:55)
[2020-09-10] MEDS: sodium chloride 0.9% 1,000 ML 999 ML IV ×2 (08:20→10:06)
--- NOTE | 2020-09-21 13:05 | ONC FU_ITS ---
[facility] Patient Note Patient: Jyoti Salazar Unit #: [id number]: 1975 Dictated By: Cortney LarsonDate of Visit: Sep 09, 2020 Onc MED Follow-Up/Prog Note Chief Complaint: Breast cancer. History of Present Illness: Mrs Salazar is a 44-year-old woman with multifocal grade 2 invasive cancer of the right breast, stage IA (T1c, N1mi, M0), ER/MN negative and HER-2/kimberley positive. She had presented with redness, pain, and swelling in the right breast. Bilateral mammograms on 03/29/2020 showed no suspicious masses, calcifications, or other significant findings. Right breast ultrasound showed a 0.7 x 0.6 x 1.1 cm irregular hypoechoic mass at the 12 o'clock position of the right breast located 1 cm from the nipple. At the 12:00 subareolar region there was a 0.7 x 0.3 x 0.6 cm hypoechoic irregular mass. Both demonstrated internal vascularity, suspicious for malignancy. She underwent ultrasound guided biopsy of both lesions on 04/02/2020. Pathology showed invasive breast carcinoma of no special type, grade 2 out of 3. The breast prognostic profile showed ER and MN negative. HER-2/kimberley was positive, 3+ by IHC. CORBY 67 was high at 16%. Pathology on the subareolar lesion apparently showed papilloma. On 04/22/2020 she underwent right axillary lumpectomy at 3 sites together with right sentinel axillary lymph node biopsy/axillary node sampling. Pathology showed grade 2 invasive ductal carcinoma at 2 sites, one measuring 1.1 cm in greatest dimension and the other measuring 0.9 cm in greatest dimension. The larger lesion had associated high-grade DCIS, but not extensive. The smaller lesion showed focal extension of tumor to the inked lateral resection margin. There was no involvement in 1 sentinel axillary lymph node. There was micro metastatic carcinoma involving 1 of 7 nonsentinel lymph nodes. It measured 0.6 mm. The 3rd lumpectomy specimen showed intraductal papilloma with usual ductal hyperplasia. She then underwent bilateral mastectomy on 05/05/2020. She had medical oncology consultation with Dr. Kira Dominguez on 05/03/2020. She was recommended to undergo adjuvant chemotherapy with 6 cycles of TCH. She underwent placement of Port-A-Cath venous access device on 05/24/2020, and she began cycle 1 of TCH on 05/27/2020. She was given first cycle prophylaxis with Neulasta. Her baseline echocardiogram on 05/04/2020 showed normal LV systolic function with ejection fraction estimated at 55 to 60%. She was seen here initially on 06/09/2020, as she had moved to this area and she wished to continue her further chemotherapy locally. Her genetic screening was unrevealing. Her other medical illnesses include hypertension, hyperlipidemia, type 2 diabetes, asthma, GERD, irritable bowel syndrome, and polycystic ovarian disease. She has a history of eczema. She is a non-smoker. INTERIM HISTORY: She returned on 06/17/2020 for cycle 2 of TCH. She tolerated that treatment well and she continued with cycle 3 on 07/08/2020 and with cycle 4 on 07/29/2020. She reported increased fatigue and somnolence following her 3rd cycle of chemotherapy, but with cycle 4 she tolerated treatment much better when she received hydration on day 2. Ms. Salazar is here today for follow-up. She is due for cycle 6 of carboplatin docetaxel trastuzumab. We did review her [facility] testing results from 08/11/2020. This is reported as negative. There were no genetic disorders identified. This did include BRCA 1 and 2. She was given a copy of the [facility] report. She denies any new concerns today. 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 She has had a little constipation and did take Colace. She states after the constipation she did have an episode of bright red blood with the stool that occurred 1 time. She has had no other blood and has had normal bowel movements since then. She denies any other evidence of bleeding. She has had no black stools. She states overall she is feeling a bit more tired but has remained active. She states she is leaving for [place] on September 17. She has planned reconstruction on October 26, 2020 and will receive her planned Herceptin while there. She denies any shortness of breath orthopnea. She denies any chest pain or palpitations. She is had no pain. She states she has not had any nausea or vomiting. She denies any hearing or vision changes. Her ECOG is 1. Past Medical History: Anxiety Asthma Breast cancer Gastroesophageal reflux disease Hyperlipidemia Hypertension Irritable bowel syndrome Polycystic ovarian disease Type II diabetes Past Surgical History: Bilateral tympanostomy tube placement Cholecystectomy Hip resection arthroplasty Tonsillectomy Port placement in 2020 Bilateral breast reconstruction cleanout in 2020 Bilateral mastectomy in 2019 Right breast lumpectomy x 3 with axillary sentinel lymph node biopsy/axillary lymph node sampling in 2019 Ultrasound-guided biopsy of the right breast in 2019 Allergies: Iodinated Contrast Dye Medications: Acetaminophen 2 (325 mg) Tablet, chewable Oral q 6 hours PRN Albuterol Sulfate 1 Puff(s) (of 108 (90 base) mcg/act) Aerosol Powder, Breath Activated Inhalation q 6 hours Cholecalciferol 1 (10 mcg ) Tablet, chewable Oral daily Dapagliflozin-metFORMIN HCl ER 1 (5-1000 mg) Tablet SR 24 HR Oral b.i.d. Dexamethasone (4 mg) Tablet Oral Take as Directed Flonase 2 [place](s) (of 50 mcg/act) Suspension Nasal daily Levemir FlexTouch Subcutaneous Lipitor 1 (20 mg) Tablet Oral at bedtime Meclizine HCl 1 (25 mg) Tablet Oral PRN NovoLOG FlexPen Subcutaneous Ondansetron HCl 1 (8 mg) Tablet Oral q 8 hours PRN Ozempic (0.25 or 0.5 MG/DOSE) 0.5 mg (of 2 mg/1.5mL) Subcutaneous q on Sa Paxil 1 (10 mg) Tablet Oral at bedtime Prochlorperazine Maleate 1 (10 mg) Tablet Oral q 6 hours PRN Singulair 1 (10 mg) Tablet Oral daily Family History: Ms. Salazar's mother is alive: congestive heart failure, and type II diabetes, and hypertension. Ms. Salazar's father is alive: heart disease, and hypertension, and type II diabetes. Ms. Salazar has 1 brother who is alive: hypertension. She has 2 sisters: 2 alive. She has 1 maternal aunt who is alive: breast cancer. Both parents are still living at age 67 and both have diabetes and coronary artery disease. A 42-year-old brother has hypertension. Two sisters are in good health. Her paternal father had stomach cancer, an aunt had breast cancer, and a cousin had thyroid cancer. Social History: Ms. Salazar is . Ms. Salazar has never smoked. She has no history of drinking. She is a non-smoker. She does not drink alcohol. Review Of Symptoms: <See Above> Vital Signs: Performed on Sep 09, 2020 10:14 Height - 65.00 in Weight - 224.2 lbs (HIGH) BSA - 2.08 sq.m BMI - 37.31 (HIGH) Temperature - 97.7 F (LOW) Pulse - 103 /min (HIGH) Respiration - 16 /min BP - 153/89 mm(hg) (HIGH) O2 Sat - 99 % Pain - 0,1 - No physically strenuous activity, but ambulatory and able to carry out light or sedentary work (e.g. office work, light house work). (ECOG) Physical Examination: Constitutional Alert, oriented, no acute distress. Skin pink, warm and dry. Head Normocephalic; atraumatic. Eyes Conjunctivae and sclerae are clear and without icterus. Pupils are reactive and equal. Hematologic/Lymphatic No petechiae or purpura. No tender or palpable lymph nodes in the cervical or supraclavicular areas. Respiratory Lungs are clear to auscultation without rhonchi or wheezing. Cardiovascular Regular rate and rhythm of heart without murmurs,clicks, gallops or rubs. Breasts Slight seroma bilaterally in the axillary area from bilateral mastectomies. There is no redness or warmth. The chest wall has no concerning findings. Back/Spine Non-tender to palpation. Extremities No visible deformities, no cyanosis, clubbing or edema. Musculoskeletal No tenderness or swelling, normal range of motion without obvious weakness. Integumentary No new rashes or lesions. She has a history of eczema and has had some areas that had flared recently but have healed. Neurologic No sensory or motor deficits, normal cerebellar function, normal gait. Psychiatric Alert and oriented times three. Coherent speech. Verbalizes understanding of our discussions today. Laboratory:see flow sheet or below for current labs Impression: 1. Multifocal grade 2 invasive cancer of the right breast, stage IA (T1c, N1mi, M0), ER/MN negative and HER-2/kimberley positive. 2. Type 2 diabetes. 3. Hyperlipidemia. 4. GERD. 5. Irritable bowel syndrome. 6. Mild asthma. 7. History of polycystic ovarian syndrome. 8. Anxiety. Plan/Problems Addressed at this Visit: 1. Multifocal grade 2 invasive cancer of the right breast, stage IA (T1c, N1mi, M0), ER/MN negative and HER-2/kimberley positive. Her initial treatment included ultrasound guided biopsy of the right breast followed by right breast lumpectomy with axillary sentinel lymph node biopsy/axillary node sampling on 04/22/2020 and subsequent bilateral mastectomy on 05/05/2020. She is now undergoing adjuvant chemotherapy with 6 cycles of TCH. She began cycle 1 on 05/27/2020. She has had genetic testing for BRCA 1 and 2 which was reported as negative. A. Proceed with cycle 6 carboplatin/docetaxel/trastuzumab at same dosing as cycle 3. We will continue support with growth factors with Neulasta on pro. B. Steroid compliance confirmed. We did also discuss repeating the steroid taper from cycle 3 for her fatigue after treatment. We have elected not to pursue this as she did not feel it benefited too much. Instead we will have her try hydration and supportive care tomorrow. She is having significant fatigue and washed out feeling on day 3 and 4 post chemo. C. Labs from September 08, 2020 reviewed in detail and discussed with Ms. Salazar and a copy was given to her. WBC 14.4 (she does receive Neulasta support) hemoglobin 13.4 platelets 168,000, ANC is 13,000. Potassium 4.6 random glucose 244???steroid-induced, creatinine 0.4 LFTs are stable with ALT at 39 her AST is 28 and alk phos is 96. D. Cardiac monitoring her last echocardiogram was July 30, 2020. She had reported normal LVEF of 55%. This echocardiogram was performed at [facility]. Her last diagnostic mammogram was 03/29/2020 which was performed at [facility] at which time she also had a right breast ultrasound for abnormalities. On 04/02/2020 she underwent right breast biopsy. 2. Type 2 diabetes. This had been poorly controlled and it is now further aggravated by the steroid requirement with her chemotherapy. A. She has been referred in endocrinology, Dr Duran for further management. B. She reports that Levemir has been added to her current diabetic regimen. 3. Follow-up plan: A. we will plan to see her back in 3 weeks with CBC CMP. B. Ms. Salazar was encouraged to contact us in interim should questions or problems arise. Signed By: Cortney Larson-, [facility] Wisam Martin MD <<Signature on File>>
== END 2020-09-10 23:59 | disposition home or self-care (01) ==
LOC: ONCMED 07:46
PROVIDERS: PCP Nurse Practitioner; Visit Provider Internal Medicine Medical Oncology
DX: Z51.11 Encounter for antineoplastic chemotherapy (principal); C50.811 Malignant neoplasm of overlapping sites of right female breast; Z17.1 Estrogen receptor negative status [ER-]; E11.9 Type 2 diabetes mellitus without complications; E78.5 Hyperlipidemia, unspecified; K21.9 Gastro-esophageal reflux disease without esophagitis; K58.9 Irritable bowel syndrome, unspecified; J45.20 Mild intermittent asthma, uncomplicated; E28.2 Polycystic ovarian syndrome; F41.9 Anxiety disorder, unspecified; Z79.899 Other long term (current) drug therapy
CPT/HCPCS: 36415; 36591; 80053; 85025; 96360; 96361; 96367; 96372; 96375; 96377; 96413; 96417; 99214; J1100; J1200; J1453; J2469; J2505; J3490; J7030; J7050; J9045; J9171; J9355

== ENCOUNTER 2020-09-30 05:33 | Outpatient (RCR) | payer BC, SELFPAY ==
[2020-09-29 10:27] LABS: Add Urine Microscopic? NO; Charge for UA Resulting for Rev
[2020-09-29 10:28] LABS: Basophils % 0.4 %; Eosinophils % 0.1 %; Hematocrit 41.3 % (37.0-47.0); Hemoglobin 13.3 g/dL (11.5-15.3); Lymphocytes % 18.9 %; Mean Corpuscular HGB Conc 32.2 g/dL (30.0-36.0); Mean Corpuscular Hemoglobin 31.4 pg (28.0-34.0); Mean Corpuscular Volume 97.4 fL (81-99); Mean Platelet Volume 8.9 fL (7.4-10.4); Monocytes % 9.7 %; Neutrophils # 7.46 10^3/uL (1.8-7.7); Nucleated Red Blood Cells % 0 %; Platelet Count 190 10^3/cmm (130-400); Red Blood Count 4.24 10^6/uL (4.1-5.3); Red Cell Distribution Width 17.5 % (12.1-15.1); White Blood Count 10.7 10^3/uL (4.0-10.0)
[2020-09-29 10:30] LABS: Bilirubin Urine Neg (Negative); Blood Urine Neg (Negative); Glucose Urine UA 4+ (Normal); Ketones Urine Negative (Negative); Leukocyte Esterase Urine Negative (Negative); Nitrate Urine Negative (Negative); Protein Urine Neg (Negative); Specific Gravity, Urine 1.015 (1.005-1.030); Urine Appearance Clear (CLEAR); Urine Color Yellow (Yellow); Urobilinogen Urine Norm (Negative); pH Urine 5 (5-7)
[2020-09-29 10:47] LABS: Alanine Aminotransferase 43 U/L (0-33); Albumin Level 4.6 g/dL (3.5-5.2); Alkaline Phosphatase 107 IU/L (35-105); Anion Gap 18.3 (5-19); Aspartate Amino Transferase 43 U/L (0-32); Blood Urea Nitrogen 12 mg/dL (6-20); Calcium 9.2 mg/dL (8.5-10.5); Carbon Dioxide 25 mmol/L (22-29); Chloride 100 mmol/L (98-107); Glomerular Filtration Rate 173.4 mL/min (90-130); Glucose 144 mg/dL (65-115); Osmolality Calculated 290 mOsm/kg (285-295); Potassium 4.3 mmol/L (3.5-5.1); Sodium 139 mmol/L (136-145); Total Bilirubin 0.3 mg/dL (0.15-1.2); Total Protein 7.6 g/dL (6.6-8.7)
[2020-09-29 10:49] LABS: Chol HDL Ratio 3.16 mg/dL (0.0-4.40); Cholesterol 136 mg/dL (0-200); HDL Cholesterol 43 mg/dL (60-100); LDL Cholesterol Calculated 59 mg/dL (50-129); Triglycerides 172 mg/dL (0-150); VLDL Cholestrol Calculation 34 mg/dL (0-30)
[2020-09-29 13:27] LABS: Estmated Average Glucose 177; Hemoglobin A1C 7.8 % (4.0-6.0)
[2020-09-30] MEDS: diphenhydrAMINE 25 mg Capsule PO (11:15)
[2020-09-30] MEDS: acetaminophen 325 mg Tablet 650 MG PO (11:15)
[2020-09-30] MEDS: sodium chloride 0.9% 250 ML 75 ML IV (11:35)
--- NOTE | 2020-10-07 13:18 | ONC FU_ITS ---
[facility] Patient Note Patient: Jyoti Salazar Unit #: [id number]: [id number] Dictated By: Cortney LarsonDate of Visit: September 30, 2020 Onc MED Follow-Up/Prog Note Chief Complaint: Breast cancer. History of Present Illness: Mrs Salazar is a 44-year-old woman with multifocal grade 2 invasive cancer of the right breast, stage IA (T1c, N1mi, M0), ER/UT negative and HER-2/kimberley positive. She had presented with redness, pain, and swelling in the right breast. Bilateral mammograms on 03/29/2020 showed no suspicious masses, calcifications, or other significant findings. Right breast ultrasound showed a 0.7 x 0.6 x 1.1 cm irregular hypoechoic mass at the 12 o'clock position of the right breast located 1 cm from the nipple. At the 12:00 subareolar region there was a 0.7 x 0.3 x 0.6 cm hypoechoic irregular mass. Both demonstrated internal vascularity, suspicious for malignancy. She underwent ultrasound guided biopsy of both lesions on 04/02/2020. Pathology showed invasive breast carcinoma of no special type, grade 2 out of 3. The breast prognostic profile showed ER and UT negative. HER-2/kimberley was positive, 3+ by IHC. CORBY 67 was high at 16%. Pathology on the subareolar lesion apparently showed papilloma. On 04/22/2020 she underwent right axillary lumpectomy at 3 sites together with right sentinel axillary lymph node biopsy/axillary node sampling. Pathology showed grade 2 invasive ductal carcinoma at 2 sites, one measuring 1.1 cm in greatest dimension and the other measuring 0.9 cm in greatest dimension. The larger lesion had associated high-grade DCIS, but not extensive. The smaller lesion showed focal extension of tumor to the inked lateral resection margin. There was no involvement in 1 sentinel axillary lymph node. There was micro metastatic carcinoma involving 1 of 7 nonsentinel lymph nodes. It measured 0.6 mm. The 3rd lumpectomy specimen showed intraductal papilloma with usual ductal hyperplasia. She then underwent bilateral mastectomy on 05/05/2020. She had medical oncology consultation with Dr. Kira Dominguez on 05/03/2020. She was recommended to undergo adjuvant chemotherapy with 6 cycles of TCH. She underwent placement of Port-A-Cath venous access device on 05/24/2020, and she began cycle 1 of TCH on 05/27/2020. She was given first cycle prophylaxis with Neulasta. Her baseline echocardiogram on 05/04/2020 showed normal LV systolic function with ejection fraction estimated at 55 to 60%. She was seen here initially on 06/09/2020, as she had moved to this area and she wished to continue her further chemotherapy locally. Her genetic screening was unrevealing. Her other medical illnesses include hypertension, hyperlipidemia, type 2 diabetes, asthma, GERD, irritable bowel syndrome, and polycystic ovarian disease. She has a history of eczema. She is a non-smoker. INTERIM HISTORY: She returned on 06/17/2020 for cycle 2 of TCH. She tolerated that treatment well and she continued with cycle 3 on 07/08/2020 and with cycle 4 on 07/29/2020. She reported increased fatigue and somnolence following her 3rd cycle of chemotherapy, but with cycle 4 she tolerated treatment much better when she received hydration on day 2. Ms. Salazar is here today for follow-up. She is due for cycle 7 of carboplatin docetaxel trastuzumab. Her [facility] testing results from 08/11/2020 were reported as negative. There were no genetic disorders identified. This did include BRCA 1 and 2. She has been given a copy of the [facility] report. She denies any new concerns today. 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 She states this started last and it hurts to walk on them. She is having a hard time finding shoes that are tolerable right now. She states overall she is feeling a bit more tired but has remained active. e denies any shortness of breath orthopnea. She denies any chest pain or palpitations. She has had no pain other than her feet. She states she has not had any nausea or vomiting. She denies any hearing or vision changes. Her ECOG is 1. She states she has a preop visit on October 12 with Thiago Scruggs at the [facility]. She is scheduled to receive her reconstruction surgery on October 19 in [place]. Her second Herceptin only dose will be October 21 which will be done in [place] with Dr. Dominguez. Past Medical History: Anxiety Asthma Breast cancer Gastroesophageal reflux disease Hyperlipidemia Hypertension Irritable bowel syndrome Polycystic ovarian disease Type II diabetes Past Surgical History: Bilateral tympanostomy tube placement Cholecystectomy Hip resection arthroplasty Tonsillectomy Port placement in 2020 Bilateral breast reconstruction cleanout in 2020 Bilateral mastectomy in 2019 Right breast lumpectomy x 3 with axillary sentinel lymph node biopsy/axillary lymph node sampling in 2019 Ultrasound-guided biopsy of the right breast in 2019 Allergies: Iodinated Contrast Dye Medications: Acetaminophen 2 (325 mg) Tablet, chewable Oral q 6 hours PRN Albuterol Sulfate 1 Puff(s) (of 108 (90 base) mcg/act) Aerosol Powder, Breath Activated Inhalation q 6 hours Cholecalciferol 1 (10 mcg ) Tablet, chewable Oral daily Dapagliflozin-metFORMIN HCl ER 1 (5-1000 mg) Tablet SR 24 HR Oral b.i.d. Flonase 2 [place](s) (of 50 mcg/act) Suspension Nasal daily Levemir FlexTouch Subcutaneous Lipitor 1 (20 mg) Tablet Oral at bedtime Meclizine HCl 1 (25 mg) Tablet Oral PRN NovoLOG FlexPen Subcutaneous Ozempic (0.25 or 0.5 MG/DOSE) 0.5 mg (of 2 mg/1.5mL) Subcutaneous q on Sa Paxil 1 (10 mg) Tablet Oral at bedtime Singulair 1 (10 mg) Tablet Oral daily Family History: Ms. Salazar's mother is alive: congestive heart failure, and type II diabetes, and hypertension. Ms. Salazar's father is alive: heart disease, and hypertension, and type II diabetes. Ms. Salazar has 1 brother who is alive: hypertension. She has 2 sisters: 2 alive. She has 1 maternal aunt who is alive: breast cancer. Both parents are still living at age 67 and both have diabetes and coronary artery disease. A 42-year-old brother has hypertension. Two sisters are in good health. Her paternal father had stomach cancer, an aunt had breast cancer, and a cousin had thyroid cancer. Social History: Ms. Salazar is . Ms. Salazar has never smoked. She has no history of drinking. She is a non-smoker. She does not drink alcohol. Review Of Symptoms: <See Above> Vital Signs: Performed on September 30, 2020 10:22 Height - 65.00 in Weight - 221.6 lbs (LOW) BSA - 2.07 sq.m BMI - 36.88 (HIGH) Temperature - 96.5 F (LOW) Pulse - 108 /min (HIGH) Respiration - 20 /min BP - 135/84 mm(hg) O2 Sat - 97 % Pain - 2 Fatigue - 4,0 - Fully active, able to carry on all predisease activities without restrictions. (ECOG) Physical Examination: Constitutional Alert, oriented, no acute distress. Skin pink, warm and dry. Head Normocephalic; atraumatic. Eyes Conjunctivae and sclerae are clear and without icterus. Pupils are reactive and equal. Hematologic/Lymphatic No petechiae or purpura. No tender or palpable lymph nodes in the cervical or supraclavicular areas. Respiratory Lungs are clear to auscultation without rhonchi or wheezing. Cardiovascular Regular rate and rhythm of heart without murmurs,clicks, gallops or rubs. Back/Spine Non-tender to palpation. Extremities No visible deformities, no cyanosis, clubbing or edema. Musculoskeletal No tenderness or swelling, normal range of motion without obvious weakness. Integumentary No new rashes or lesions. She has a history of eczema and has had some areas that had flared recently but have healed. Neurologic No sensory or motor deficits, normal cerebellar function, normal gait. Psychiatric Alert and oriented times three. Coherent speech. Verbalizes understanding of our discussions today. Laboratory:Test performed on September 29, 2020 09:45 Sodium 139 mmol/L Potassium 4.3 mmol/L Chloride 100 mmol/L CO2 25 mmol/L Anion Gap 18.3 BUN 12 mg/dL Creatinine 0.4 mg/dL Cr Clearance (Est) 286.0900 mL/min eGFR 173.4 mL/min Glucose 144 mg/dL Osmolality - Calculated 290 mOsm/kg Calcium 9.2 mg/dL Protein, Total 7.6 g/dL Albumin 4.6 g/dL Globulin 3.0 g/dL Bilirubin, Total 0.3 mg/dL ALT (SGPT) 43 U/L AST (SGOT) 43 U/L Alkaline Phosphatase 107 IU/L WBC 10.7 10 3/uL RBC 4.24 10 6/uL HGB 13.3 g/dL HCT 41.3 % MCV 97.4 fL MCH 31.4 pg MCHC 32.2 g/dL RDW 17.5 % Platelet Count 190 10 3/cmm MPV 8.9 fL Neutrophils 7.46 10 3/uL Lymphocytes 2.0 10 3/uL Monocytes 1.0 10 3/uL Eosinophils 0.0 10 3/uL Basophils 0.0 10 3/uL Neutrophil % 70.0 % Lymphocyte % 18.9 % Monocyte % 9.7 % Eosinophil % 0.1 % Basophils % 0.4 % NRBC % 0 % Impression: 1. Multifocal grade 2 invasive cancer of the right breast, stage IA (T1c, N1mi, M0), ER/UT negative and HER-2/kimberley positive. 2. Type 2 diabetes. 3. Hyperlipidemia. 4. GERD. 5. Irritable bowel syndrome. 6. Mild asthma. 7. History of polycystic ovarian syndrome. 8. Anxiety. Plan/Problems Addressed at this Visit: 1. Multifocal grade 2 invasive cancer of the right breast, stage IA (T1c, N1mi, M0), ER/UT negative and HER-2/kimberley positive. Her initial treatment included ultrasound guided biopsy of the right breast followed by right breast lumpectomy with axillary sentinel lymph node biopsy/axillary node sampling on 04/22/2020 and subsequent bilateral mastectomy on 05/05/2020. She was advised to undergo adjuvant chemotherapy with 6 cycles of TCH. She began cycle 1 on 05/27/2020. She has had genetic testing for BRCA 1 and 2 which was reported as negative. She has now completed the recommended 6 cycles of TCH. A. She will proceed with single agent Herceptin today. Is at the 6-week dosing. B. She may have supportive care as needed. C. Today's labs were reviewed in detail and discussed with Ms. Pierson and a copy was given to her. WBC 10.7, hemoglobin 13.3, platelets 190,000, ANC is 7460. Potassium 4.3 creatinine 0.4 random glucose 144 her ALT is 43 AST is 43 alk phos is 107. D. Cardiac monitoring: her last echocardiogram was July 30, 2020. She had reported normal LVEF of 55%. This echocardiogram was performed at [facility]. Her last diagnostic mammogram was 03/29/2020 which was performed at [facility] at which time she also had a right breast ultrasound for abnormalities. On 04/02/2020 she underwent right breast biopsy. 2. Type 2 diabetes. This had been poorly controlled and it is now further aggravated by the steroid requirement with her chemotherapy. A. She has been referred in endocrinology, Dr Duran for further management. B. She reports that Levemir has been added to her current diabetic regimen. 3. Follow-up plan: A. we will plan to see her back in 6 weeks with CBC CMP. Her next 3-week dose of Herceptin will be given in [place] by Dr. Dominguez. B. Ms. Salazar was encouraged to contact us in interim should questions or problems arise. Signed By: Cortney Larson-, [facility] Wisam Martin MD <<Signature on File>>
== END 2020-10-11 23:59 | disposition home or self-care (01) ==
LOC: ONCMED 05:33
PROVIDERS: Internal Medicine Medical Oncology; PCP Nurse Practitioner; Visit Provider Nurse Practitioner
DX: Z51.11 Encounter for antineoplastic chemotherapy (principal); C50.811 Malignant neoplasm of overlapping sites of right female breast; Z17.1 Estrogen receptor negative status [ER-]; F41.9 Anxiety disorder, unspecified; J45.909 Unspecified asthma, uncomplicated; K21.9 Gastro-esophageal reflux disease without esophagitis; E78.5 Hyperlipidemia, unspecified; I10 Essential (primary) hypertension; K58.9 Irritable bowel syndrome, unspecified; E28.2 Polycystic ovarian syndrome; E11.9 Type 2 diabetes mellitus without complications; Z79.899 Other long term (current) drug therapy
CPT/HCPCS: 36591; 80053; 80061; 81003; 83036; 85025; 96413; 99214; J7050; J9355

== ENCOUNTER 2020-10-27 05:37 | Outpatient (RCR) | payer BC, SELFPAY ==
[2020-10-13] MEDS: famotidine 20 mg/2 mL INJ IVP (15:47)
[2020-10-13] MEDS: sodium chloride 0.9% 1,000 ML 999 ML IV (16:05)
[2020-10-13 16:08] LABS: Basophils % 0.3 %; Eosinophils # 0.1 10^3/uL (0.0-0.8); Eosinophils % 1.2 %; Hematocrit 41.8 % (37.0-47.0); Hemoglobin 13.6 g/dL (11.5-15.3); Lymphocytes # 2.3 10^3/uL (0.8-4.8); Lymphocytes % 24.7 %; Mean Corpuscular HGB Conc 32.5 g/dL (30.0-36.0); Mean Corpuscular Hemoglobin 31.4 pg (28.0-34.0); Mean Corpuscular Volume 96.5 fL (81-99); Mean Platelet Volume 9.3 fL (7.4-10.4); Monocytes # 0.8 10^3/uL (0.2-0.9); Monocytes % 8.7 %; Neutrophils # 5.92 10^3/uL (1.8-7.7); Neutrophils % 64.7 %; Nucleated Red Blood Cells % 0 %; Platelet Count 261 10^3/cmm (130-400); Red Blood Count 4.33 10^6/uL (4.1-5.3); Red Cell Distribution Width 14.9 % (12.1-15.1); White Blood Count 9.2 10^3/uL (4.0-10.0)
[2020-10-13 17:27] LABS: Alanine Aminotransferase 51 U/L (0-33); Albumin Level 4.6 g/dL (3.5-5.2); Alkaline Phosphatase 102 IU/L (35-105); Anion Gap 18.1 (5-19); Aspartate Amino Transferase 43 U/L (0-32); Blood Urea Nitrogen 12 mg/dL (6-20); Calcium 9.3 mg/dL (8.5-10.5); Carbon Dioxide 26 mmol/L (22-29); Chloride 99 mmol/L (98-107); Globulin 2.9 g/dL (1.3-4.6); Glomerular Filtration Rate 173.4 mL/min (90-130); Glucose 248 mg/dL (65-115); Osmolality Calculated 296 mOsm/kg (285-295); Potassium 4.1 mmol/L (3.5-5.1); Sodium 139 mmol/L (136-145); Thyroid Stimulating Hormone 0.84 uIU/mL (0.27-4.20); Total Bilirubin 0.3 mg/dL (0.15-1.2); Total Protein 7.5 g/dL (6.6-8.7)
--- NOTE | 2020-10-30 15:34 | ONC FU_ITS ---
Dr. Martin Patient Follow-Up Note Patient: Jyoti Salazar Unit #: [id number]: 1975 Dicatated By: Wisam Martin M.D.Date of Visit:Oct 27, 2020 Onc Med Follow-up/Prog Note Chief Complaint: Breast cancer. History of Present Illness: This is a 44-year-old woman with multifocal grade 2 invasive cancer of the right breast, stage IA (T1c, N1mi, M0), ER/TN negative and HER-2/kimberley positive. She had presented with redness, pain, and swelling in the right breast. Bilateral mammograms on 03/29/2020 showed no suspicious masses, calcifications, or other significant findings. Right breast ultrasound showed a 0.7 x 0.6 x 1.1 cm irregular hypoechoic mass at the 12 o'clock position of the right breast located 1 cm from the nipple. At the 12:00 subareolar region there was a 0.7 x 0.3 x 0.6 cm hypoechoic irregular mass. Both demonstrated internal vascularity, suspicious for malignancy. She underwent ultrasound guided biopsy of both lesions on 04/02/2020. Pathology showed invasive breast carcinoma of no special type, grade 2 out of 3. The breast prognostic profile showed ER and TN negative. HER-2/kimberley was positive, 3+ by IHC. CORBY 67 was high at 16%. Pathology on the subareolar lesion apparently showed papilloma. On 04/22/2020 she underwent right axillary lumpectomy at 3 sites together with right sentinel axillary lymph node biopsy/axillary node sampling. Pathology showed grade 2 invasive ductal carcinoma at 2 sites, one measuring 1.1 cm in greatest dimension and the other measuring 0.9 cm in greatest dimension. The larger lesion had associated high-grade DCIS, but not extensive. The smaller lesion showed focal extension of tumor to the inked lateral resection margin. There was no involvement in 1 sentinel axillary lymph node. There was micro metastatic carcinoma involving 1 of 7 nonsentinel lymph nodes. It measured 0.6 mm. The 3rd lumpectomy specimen showed intraductal papilloma with usual ductal hyperplasia. She then underwent bilateral mastectomy on 05/05/2020. She had medical oncology consultation with Dr. Kira Dominguez on 05/03/2020. She was recommended to undergo adjuvant chemotherapy with 6 cycles of TCH. She underwent placement of Port-A-Cath venous access device on 05/24/2020, and she began cycle 1 of TCH on 05/27/2020. She was given first cycle prophylaxis with Neulasta. Her baseline echocardiogram on 05/04/2020 showed normal LV systolic function with ejection fraction estimated at 55 to 60%. She was seen here initially on 06/09/2020, as she had moved to this area and she wished to continue her further chemotherapy locally. Her genetic screening was unrevealing. She returned on 06/17/2020 for cycle 2 of TCH. She tolerated that treatment well and she continued treatment at 3-week intervals. She completed cycle 6 on 09/09/2020. Her other medical illnesses include hypertension, hyperlipidemia, type 2 diabetes, asthma, GERD, irritable bowel syndrome, and polycystic ovarian disease. She has a history of eczema. She is a non-smoker. INTERIM HISTORY: She continued with her 1st cycle of Herceptin monotherapy on 09/30/2020. She then returned to [place] and she underwent reconstructive surgery on 10/29/2020. She also received cycle 2 of Herceptin monotherapy. She is seen for a followup visit. She has been feeling much better since she completed the chemotherapy portion of her treatment. Her energy is better, but she is still napping at least every few days. ECOG score is 1. She has good appetite. She has not had fever. She does complain that she is sweating all the time. She is not really having hot flashes, though. She continues to have some skin eruption on both arms and both thighs. She has not had sore mouth or throat. She does not complain of shortness of breath, cough, or chest pain. She has no GI or complaints. Her bowels are back to normal. She is having some mild pain with her incisions. She has no significant joint or bone pain. She has a little bit of numbness in her toes. She has no other neuropathy symptoms. She has had significant improvement in her depression. Medications: Acetaminophen 2 (325 mg) Tablet, chewable Oral q 6 hours PRN, Albuterol Sulfate 1 Puff(s) (of 108 (90 base) mcg/act) Aerosol Powder, Breath Activated Inhalation q 6 hours, Cholecalciferol 1 (10 mcg ) Tablet, chewable Oral daily, Dapagliflozin-metFORMIN HCl ER 1 (5-1000 mg) Tablet SR 24 HR Oral b.i.d., Effexor XR (75 mg) Capsule SR 24 HR Oral daily, Flonase 2 [place](s) (of 50 mcg/act) Suspension Nasal daily, Levemir FlexTouch Subcutaneous, Lipitor 1 (20 mg) Tablet Oral at bedtime, Meclizine HCl 1 (25 mg) Tablet Oral PRN, NovoLOG FlexPen Subcutaneous, Ozempic (0.25 or 0.5 MG/DOSE) 0.5 mg (of 2 mg/1.5mL) Subcutaneous q on , Singulair 1 (10 mg) Tablet Oral daily Allergies: Iodinated Contrast Dye Vital Signs: Performed on Oct 27, 2020 08:39 Height - 65.00 in Weight - 230.2 lbs (HIGH) BSA - 2.10 sq.m BMI - 38.31 (HIGH) Temperature - 96.4 F (LOW) Pulse - 92 /min Respiration - 18 /min BP - 138/80 mm(hg) O2 Sat - 98 % Pain - 0 Fatigue - 3 Physical Examination: Constitutional - She looks good generally, Eyes - Sclerae nonicteric. Conjunctivae clear, ENMT - No lesions noted in the oral cavity, Hematologic/Lymphatic - No cervical, clavicular, or axillary adenopathy, Respiratory - Lungs are clear with good air movement bilaterally, Cardiovascular - Heart rhythm is regular. There is no murmur, gallop, or rub noted, Abdomen - Soft. Liver and spleen are not enlarged. There is no abdominal mass or ascites noted and there is no inguinal adenopathy, Extremities - No edema, Integumentary - There is some residual eczematous type skin eruption on both arms, more prominent on the left, and on both thighs, more prominent on the right, Neurologic - No focal neurologic deficits noted. Lab/Imaging: Test performed on Oct 13, 2020 15:35 Sodium 139 mmol/L TSH 0.84 uIU/mL Potassium 4.1 mmol/L Chloride 99 mmol/L CO2 26 mmol/L Anion Gap 18.1 BUN 12 mg/dL Creatinine 0.4 mg/dL Cr Clearance (Est) 284.8000 mL/min eGFR 173.4 mL/min Glucose 248 mg/dL Osmolality - Calculated 296 mOsm/kg Calcium 9.3 mg/dL Protein, Total 7.5 g/dL Albumin 4.6 g/dL Globulin 2.9 g/dL Bilirubin, Total 0.3 mg/dL ALT (SGPT) 51 U/L AST (SGOT) 43 U/L Alkaline Phosphatase 102 IU/L WBC 9.2 10 3/uL RBC 4.33 10 6/uL HGB 13.6 g/dL HCT 41.8 % MCV 96.5 fL MCH 31.4 pg MCHC 32.5 g/dL RDW 14.9 % Platelet Count 261 10 3/cmm MPV 9.3 fL Neutrophils 5.92 10 3/uL Lymphocytes 2.3 10 3/uL Monocytes 0.8 10 3/uL Eosinophils 0.1 10 3/uL Basophils 0.0 10 3/uL Neutrophil % 64.7 % Lymphocyte % 24.7 % Monocyte % 8.7 % Eosinophil % 1.2 % Basophils % 0.3 % NRBC % 0 % Problem List: 1. Multifocal grade 2 invasive cancer of the right breast, stage IA (T1c, N1mi, M0), ER/TN negative and HER-2/kimberley positive. 2. Type 2 diabetes. 3. Hyperlipidemia. 4. GERD. 5. Irritable bowel syndrome. 6. Mild asthma. 7. History of polycystic ovarian syndrome. 8. Anxiety. Problems Addressed with this Encounter and Plan: Patient with multifocal grade 2 invasive cancer of the right breast, stage IA (T1c, N1mi, M0), ER/TN negative and HER-2/kimberley positive. Her initial treatment included ultrasound guided biopsy of the right breast followed by right breast lumpectomy with axillary sentinel lymph node biopsy/axillary node sampling on 04/22/2020 and subsequent bilateral mastectomy on 05/05/2020. She began cycle 1 of adjuvant TCH chemotherapy on 05/27/2020. She tolerated well and she then continued treatment at 3-week intervals with no dose reductions or delays. She completed her 6th cycle on 09/09/2020. She then continued with cycle 1 of Herceptin monotherapy on 09/30/2020. She underwent reconstructive surgery in [place] on 10/19/2020, she also received cycle 2 of Herceptin monotherapy at that time. At this point she appears to be doing well clinically. She has had a very good recovery from the chemotherapy portion of her treatment and she appears to be recovering well from her surgery. She will return on 11/11/2020 for cycle 3 of Herceptin monotherapy, which will complete her 9th of 17 planned dosages of Herceptin. She will return for treatment again at a 3-week interval and she will be scheduled for a follow-up visit at a 6-week interval. Signed By: Wisam Martin M.D. <<Signature on File>>
== END 2020-11-10 23:59 | disposition home or self-care (01) ==
LOC: ONCMED 05:37
PROVIDERS: PCP Nurse Practitioner; Visit Provider Internal Medicine Medical Oncology
DX: C50.811 Malignant neoplasm of overlapping sites of right female breast (principal); Z17.1 Estrogen receptor negative status [ER-]; E11.9 Type 2 diabetes mellitus without complications; E78.5 Hyperlipidemia, unspecified; K21.9 Gastro-esophageal reflux disease without esophagitis; K58.9 Irritable bowel syndrome, unspecified; J45.20 Mild intermittent asthma, uncomplicated; F41.9 Anxiety disorder, unspecified; E28.2 Polycystic ovarian syndrome; Z79.899 Other long term (current) drug therapy; Z92.21 Personal history of antineoplastic chemotherapy
CPT/HCPCS: 80053; 84443; 85025; 96361; 96365; 96375; 99214; J1100; J3490; J7030

== ENCOUNTER 2020-12-08 05:43 | Outpatient (RCR) | payer BC, SELFPAY ==
--- NOTE | 2020-11-11 08:00 | USCV_ITS ---
Jyoti Salazar Age: 44 Gender: F : 1975 Exam Date: 11/11/2020 08:15 Ordering Phys: Wisam Martin MD Technologist: Cece Garrett [place] [facility] [place]: Breast cancer / high risk medication BP: / HR: 84 Rhythm: Sinus Technical Quality: Fair MEASUREMENTS (Male / Female) Normal Values 2D ECHO LV Diastolic Diameter PLAX 3.4 cm 4.2 - 5.9 / 3.9 - 5.3 cm LV Systolic Diameter PLAX 2.5 cm IVS Diastolic Thickness 1.4 cm 0.6 - 1.0 / 0.6 - 0.9 cm IVS Systolic Thickness 2.0 cm LVPW Diastolic Thickness 1.0 cm 0.6 - 1.0 / 0.6 - 0.9 cm LVPW Systolic Thickness 1.4 cm LV Ejection Fraction 2D Teich 51.3 % LV Ejection Fraction MOD 2C 67.1 % LV Ejection Fraction 2C AL 68.0 % M-MODE LV Diastolic Diameter MM 4.1 cm 4.2 - 5.9 / 3.9 - 5.3 cm LV Systolic Diameter MM 2.9 cm LV Ejection Fraction MM Teich 57.0 % IVS Diastolic Thickness MM 1.5 cm 0.6 - 1.0 / 0.6 - 0.9 cm IVS Systolic Thickness MM 1.7 cm LVPW Diastolic Thickness MM 1.1 cm 0.6 - 1.0 / 0.6 - 0.9 cm LVPW Systolic Thickness MM 1.4 cm FINDINGS Left Ventricle Normal left ventricular size. LV systolic function is normal with EF of 55-60%.No regional wall motion abnormalities are seen Right Ventricle The right ventricle is normal in size and function. Right Atrium Normal is size Left Atrium Normal in size Mitral Valve Grossly normal Aortic Valve Thickened valve Tricuspid Valve Not well visualized Pulmonic Valve Not visualized Pericardium Normal pericardium without effusion. Aorta Not well visualized CONCLUSIONS LV systolic function is normal with EF of 55-60%. No regional wall motion abnormalities Compared to prior echocardiogram from 07/30/2020, no significant changes are noted Raheem Morales MD (Electronically Signed) Final Date: 15 November 2020 18:11 S
[2020-11-16 15:10] LABS: Basophils # 0.1 10^3/uL (0.0-0.1); Basophils % 0.4 %; Eosinophils # 0.1 10^3/uL (0.0-0.8); Hematocrit 44.4 % (37.0-47.0); Hemoglobin 14.2 g/dL (11.5-15.3); Lymphocytes # 2.8 10^3/uL (0.8-4.8); Lymphocytes % 24.4 %; Mean Corpuscular Hemoglobin 30.5 pg (28.0-34.0); Mean Corpuscular Volume 95.5 fL (81-99); Mean Platelet Volume 9.2 fL (7.4-10.4); Monocytes # 0.9 10^3/uL (0.2-0.9); Monocytes % 7.4 %; Neutrophils # 7.57 10^3/uL (1.8-7.7); Neutrophils % 66.1 %; Nucleated Red Blood Cells % 0 %; Platelet Count 227 10^3/cmm (130-400); Red Blood Count 4.65 10^6/uL (4.1-5.3); Red Cell Distribution Width 12.6 % (12.1-15.1); White Blood Count 11.5 10^3/uL (4.0-10.0)
[2020-11-16 15:35] LABS: Alanine Aminotransferase 25 U/L (0-33); Albumin Level 4.3 g/dL (3.5-5.2); Alkaline Phosphatase 93 IU/L (35-105); Aspartate Amino Transferase 20 U/L (0-32); Blood Urea Nitrogen 17 mg/dL (6-20); Carbon Dioxide 25 mmol/L (22-29); Chloride 102 mmol/L (98-107); Globulin 2.7 g/dL (1.3-4.6); Glomerular Filtration Rate 173.4 mL/min (90-130); Glucose 181 mg/dL (65-115); Osmolality Calculated 296 mOsm/kg (285-295); Sodium 140 mmol/L (136-145); Total Bilirubin 0.2 mg/dL (0.15-1.2)
[2020-11-16] MEDS: acetaminophen 325 mg Tablet 650 MG PO (16:13)
[2020-11-16] MEDS: diphenhydrAMINE 25 mg Capsule PO (16:13)
[2020-11-16] MEDS: sodium chloride 0.9% 250 ML 100 ML IV (16:32)
[2020-12-08] MEDS: alteplase 1 mg/mL SDV 2 mL 2 MG IV (09:46)
[2020-12-08] MEDS: diphenhydrAMINE 25 mg Capsule PO (10:00)
[2020-12-08] MEDS: acetaminophen 325 mg Tablet 650 MG PO (10:00)
[2020-12-08] MEDS: sodium chloride 0.9% 250 ML 75 ML IV (10:15)
== END 2020-12-11 23:59 | disposition home or self-care (01) ==
LOC: ONCMED 05:43
PROVIDERS: PCP Nurse Practitioner; Visit Provider Internal Medicine Medical Oncology
DX: Z51.11 Encounter for antineoplastic chemotherapy (principal); C50.811 Malignant neoplasm of overlapping sites of right female breast; Z17.1 Estrogen receptor negative status [ER-]; Z79.899 Other long term (current) drug therapy
CPT/HCPCS: 36415; 36593; 80053; 85025; 93308; 96375; 96413; J2997; J7050; J9355

== ENCOUNTER 2020-12-29 06:05 | Outpatient (RCR) | payer BC, SELFPAY ==
[2020-12-29 09:25] LABS: Basophils % 0.4 %; Hematocrit 44.2 % (37.0-47.0); Hemoglobin 14.5 g/dL (11.5-15.3); Lymphocytes # 2.9 10^3/uL (0.8-4.8); Lymphocytes % 39.4 %; Mean Corpuscular HGB Conc 32.8 g/dL (30.0-36.0); Mean Corpuscular Hemoglobin 29.5 pg (28.0-34.0); Mean Platelet Volume 9.1 fL (7.4-10.4); Monocytes # 0.7 10^3/uL (0.2-0.9); Monocytes % 8.9 %; Neutrophils # 3.72 10^3/uL (1.8-7.7); Neutrophils % 50.6 %; Nucleated Red Blood Cells % 0 %; Platelet Count 159 10^3/cmm (130-400); Red Blood Count 4.91 10^6/uL (4.1-5.3); Red Cell Distribution Width 13.4 % (12.1-15.1); White Blood Count 7.3 10^3/uL (4.0-10.0)
[2020-12-29 09:50] LABS: Alanine Aminotransferase 61 U/L (0-33); Albumin Level 4.3 g/dL (3.5-5.2); Alkaline Phosphatase 104 IU/L (35-105); Anion Gap 15.1 (5-19); Aspartate Amino Transferase 66 U/L (0-32); Blood Urea Nitrogen 15 mg/dL (6-20); Calcium 8.8 mg/dL (8.5-10.5); Carbon Dioxide 26 mmol/L (22-29); Chloride 99 mmol/L (98-107); Globulin 3.1 g/dL (1.3-4.6); Glomerular Filtration Rate 172.6 mL/min (90-130); Glucose 222 mg/dL (65-115); Osmolality Calculated 290 mOsm/kg (285-295); Potassium 4.1 mmol/L (3.5-5.1); Sodium 136 mmol/L (136-145); Total Bilirubin 0.5 mg/dL (0.15-1.2); Total Protein 7.4 g/dL (6.6-8.7)
[2020-12-29 10:27] LABS: Slide Review Slide Review Perform
[2020-12-29 10:34] LABS: Estmated Average Glucose 183
[2020-12-29] MEDS: acetaminophen 325 mg Tablet 650 MG PO (11:26)
[2020-12-29] MEDS: sodium chloride 0.9% 250 ML 75 ML IV (11:26)
[2020-12-29] MEDS: diphenhydrAMINE 25 mg Capsule PO (11:26)
--- NOTE | 2020-12-29 18:07 | ONC FU_ITS ---
Dr. Martin Patient Follow-Up Note Patient: Jyoti Salazar Unit #: [id number]: 1975 Dicatated By: Wisam Martin M.D.Date of Visit:Dec 29, 2020 Onc Med Follow-up/Prog Note Chief Complaint: Breast cancer. History of Present Illness: This is a 45 year-old woman with multifocal grade 2 invasive cancer of the right breast, stage IA (T1c, N1mi, M0), ER/MT negative and HER-2/kimberley positive. She had presented with redness, pain, and swelling in the right breast. Bilateral mammograms on 03/29/2020 showed no suspicious masses, calcifications, or other significant findings. Right breast ultrasound showed a 0.7 x 0.6 x 1.1 cm irregular hypoechoic mass at the 12 o'clock position of the right breast located 1 cm from the nipple. At the 12:00 subareolar region there was a 0.7 x 0.3 x 0.6 cm hypoechoic irregular mass. Both demonstrated internal vascularity, suspicious for malignancy. She underwent ultrasound guided biopsy of both lesions on 04/02/2020. Pathology showed invasive breast carcinoma of no special type, grade 2 out of 3. The breast prognostic profile showed ER and MT negative. HER-2/kimberley was positive, 3+ by IHC. CORBY 67 was high at 16%. Pathology on the subareolar lesion apparently showed papilloma. On 04/22/2020 she underwent right axillary lumpectomy at 3 sites together with right sentinel axillary lymph node biopsy/axillary node sampling. Pathology showed grade 2 invasive ductal carcinoma at 2 sites, one measuring 1.1 cm in greatest dimension and the other measuring 0.9 cm in greatest dimension. The larger lesion had associated high-grade DCIS, but not extensive. The smaller lesion showed focal extension of tumor to the inked lateral resection margin. There was no involvement in 1 sentinel axillary lymph node. There was micro metastatic carcinoma involving 1 of 7 nonsentinel lymph nodes. It measured 0.6 mm. The 3rd lumpectomy specimen showed intraductal papilloma with usual ductal hyperplasia. She then underwent bilateral mastectomy on 05/05/2020. She had medical oncology consultation with Dr. Kira Dominguez on 05/03/2020. She was recommended to undergo adjuvant chemotherapy with 6 cycles of TCH. She underwent placement of Port-A-Cath venous access device on 05/24/2020, and she began cycle 1 of TCH on 05/27/2020. She was given first cycle prophylaxis with Neulasta. Her baseline echocardiogram on 05/04/2020 showed normal LV systolic function with ejection fraction estimated at 55 to 60%. She was seen here initially on 06/09/2020, as she had moved to this area and she wished to continue her further chemotherapy locally. Her genetic screening was unrevealing. She returned on 06/17/2020 for cycle 2 of TCH. She tolerated that treatment well and she continued treatment at 3-week intervals. She completed cycle 6 on 09/09/2020. Her other medical illnesses include hypertension, hyperlipidemia, type 2 diabetes, asthma, GERD, irritable bowel syndrome, and polycystic ovarian disease. She has a history of eczema. She is a non-smoker. INTERIM HISTORY: She continued with her 1st cycle of Herceptin monotherapy on 09/30/2020. She then returned to [place] and she underwent reconstructive surgery on 10/29/2020. She also received cycle 2 of Herceptin monotherapy. She continued with cycle 3 on 11/16/2020 and with cycle 4 on 12/08/2020. She is seen for a followup visit. She has been feeling pretty good generally, though she does complain that she is tired. She has normal activity. Her ECOG score is 3. Her appetite is good. She has not had fever. She complains that she sweats all the time. She has no shortness of breath, cough, or chest pain. She was sick last week with nausea and diarrhea. It occurred while she was in [place], and it was severe enough that she went to an ER for treatment. She was diagnosed with traveler's diarrhea. She has completely recovered now. She has no complaints. She has no significant joint or bone pain. She does not complain of headache. She occasionally has orthostatic dysequilibrium. She has persistent numbness in her toes. She says her psoriasis flares up for 3 days after treatment but then gradually subsides. Medications: Acetaminophen 2 (325 mg) Tablet, chewable Oral q 6 hours PRN, Albuterol Sulfate 1 Puff(s) (of 108 (90 base) mcg/act) Aerosol Powder, Breath Activated Inhalation q 6 hours, Cholecalciferol 1 (10 mcg ) Tablet, chewable Oral daily, Dapagliflozin-metFORMIN HCl ER 1 (5-1000 mg) Tablet SR 24 HR Oral b.i.d., Effexor XR (75 mg) Capsule SR 24 HR Oral daily, Flonase 2 [place](s) (of 50 mcg/act) Suspension Nasal daily, Levemir FlexTouch Subcutaneous, Lipitor 1 (20 mg) Tablet Oral at bedtime, Meclizine HCl 1 (25 mg) Tablet Oral PRN, NovoLOG FlexPen Subcutaneous, Ozempic (0.25 or 0.5 MG/DOSE) 0.5 mg (of 2 mg/1.5mL) Subcutaneous q on Sa, Singulair 1 (10 mg) Tablet Oral daily Allergies: Iodinated Contrast Dye Vital Signs: Performed on Dec 29, 2020 10:49 Height - 65.00 in Weight - 224.2 lbs (LOW) BSA - 2.08 sq.m BMI - 37.31 (HIGH) Temperature - 97.3 F (LOW) Pulse - 98 /min Respiration - 18 /min BP - 130/79 mm(hg) O2 Sat - 96 % Pain - 0 Fatigue - 6 Physical Examination: Constitutional - She looks good generally, Eyes - Sclerae nonicteric. Conjunctivae clear, ENMT - No lesions noted in the oral cavity, Hematologic/Lymphatic - No cervical, clavicular, or axillary adenopathy, Respiratory - Lungs are clear with good air movement bilaterally, Cardiovascular - Heart rhythm is regular. There is no murmur, gallop, or rub noted, Abdomen - Soft. Liver and spleen are not enlarged. There is no abdominal mass or ascites noted and there is no inguinal adenopathy, Extremities - No edema, Integumentary - There is an eczematous type skin eruption which is most prominent now on the right thigh. There is a smaller eruption in the area of the left axilla/shoulder, Neurologic - No focal neurologic deficits noted. Lab/Imaging: Test performed on Dec 29, 2020 09:00 Sodium 136 mmol/L Potassium 4.1 mmol/L Chloride 99 mmol/L CO2 26 mmol/L Anion Gap 15.1 BUN 15 mg/dL Creatinine 0.4 mg/dL Cr Clearance (Est) 281.8300 mL/min eGFR 172.6 mL/min Glucose 222 mg/dL Osmolality - Calculated 290 mOsm/kg Calcium 8.8 mg/dL Protein, Total 7.4 g/dL Albumin 4.3 g/dL Globulin 3.1 g/dL Bilirubin, Total 0.5 mg/dL ALT (SGPT) 61 U/L AST (SGOT) 66 U/L Alkaline Phosphatase 104 IU/L WBC 7.3 10 3/uL RBC 4.91 10 6/uL HGB 14.5 g/dL HCT 44.2 % MCV 90.0 fl MCH 29.5 pg MCHC 32.8 g/dL RDW 13.4 % Platelet Count 159 10 3/cmm MPV 9.1 fL Neutrophils 3.72 10 3/uL Lymphocytes 2.9 10 3/uL Monocytes 0.7 10 3/uL Eosinophils 0.0 10 3/uL Basophils 0.0 10 3/uL Neutrophil % 50.6 % Lymphocyte % 39.4 % Monocyte % 8.9 % Eosinophil % 0.0 % Basophils % 0.4 % NRBC % 0 % CBC Slide Review Slide Review Perform SLIDE REVIEW AGREES WITH AUTOMATED RESULTS Problem List: 1. Multifocal grade 2 invasive cancer of the right breast, stage IA (T1c, N1mi, M0), ER/MT negative and HER-2/kimberley positive. 2. Type 2 diabetes. 3. Hyperlipidemia. 4. GERD. 5. Irritable bowel syndrome. 6. Mild asthma. 7. History of polycystic ovarian syndrome. 8. Anxiety. Problems Addressed with this Encounter and Plan: Patient with multifocal grade 2 invasive cancer of the right breast, stage IA (T1c, N1mi, M0), ER/MT negative and HER-2/kimberley positive. Her initial treatment included ultrasound guided biopsy of the right breast followed by right breast lumpectomy with axillary sentinel lymph node biopsy/axillary node sampling on 04/22/2020 and subsequent bilateral mastectomy on 05/05/2020. She began cycle 1 of adjuvant TCH chemotherapy on 05/27/2020. She tolerated well and she then continued treatment at 3-week intervals with no dose reductions or delays. She completed her 6th cycle on 09/09/2020. She then continued with cycle 1 of Herceptin monotherapy on 09/30/2020. She underwent reconstructive surgery in [place] on 10/19/2020, she also received cycle 2 of Herceptin monotherapy at that time. She then continued with cycle 3 of Herceptin monotherapy on 11/16/2020 and with cycle 4 on 12/08/2020. Overall she has been tolerating treatment. Last week she had an acute GI illness, mainly diarrhea, but that has completely resoved. She has otherwise been stable clinically. She will continue with cycle 5 of Herceptin monotherapy, which is now a total of 11 of 17 planned cycles. She returns in 3 weeks for treatment. I will see her for a followup visit in 6 weeks. Signed By: Wisam Martin M.D. <<Signature on File>>
== END 2021-01-11 23:59 | disposition home or self-care (01) ==
LOC: ONCMED 06:05
PROVIDERS: Internal Medicine; PCP Nurse Practitioner; Visit Provider Internal Medicine Medical Oncology
DX: Z51.11 Encounter for antineoplastic chemotherapy (principal); C50.811 Malignant neoplasm of overlapping sites of right female breast; Z17.1 Estrogen receptor negative status [ER-]; E11.9 Type 2 diabetes mellitus without complications; E78.5 Hyperlipidemia, unspecified; K21.9 Gastro-esophageal reflux disease without esophagitis; K58.9 Irritable bowel syndrome, unspecified; J45.20 Mild intermittent asthma, uncomplicated; F41.9 Anxiety disorder, unspecified; E28.2 Polycystic ovarian syndrome; Z79.899 Other long term (current) drug therapy; Z90.11 Acquired absence of right breast and nipple; Z90.12 Acquired absence of left breast and nipple
CPT/HCPCS: 80053; 83036; 85025; 96413; 99214; J7050; J9355

== ENCOUNTER → 2020-12-31 10:30 | Outpatient (BNVA) | payer BC, SELFPAY | PROVIDERS: PCP Nurse Practitioner; Visit Provider Nurse Practitioner | DX: E11.65 Type 2 diabetes mellitus with hyperglycemia (principal); Z79.4 Long term (current) use of insulin; J30.89 Other allergic rhinitis | CPT/HCPCS: 81003 ==

== ENCOUNTER 2021-01-19 06:18 | Outpatient (RCR) | payer BC, SELFPAY ==
[2021-01-19] MEDS: diphenhydrAMINE 25 mg Capsule PO (09:20)
[2021-01-19] MEDS: acetaminophen 325 mg Tablet 650 MG PO (09:20)
[2021-01-19] MEDS: sodium chloride 0.9% 250 ML 75 ML IV (09:36)
== END 2021-01-29 09:55 | disposition home or self-care (01) ==
LOC: ONCMED 06:18
PROVIDERS: PCP Nurse Practitioner; Visit Provider Internal Medicine Medical Oncology
DX: Z51.11 Encounter for antineoplastic chemotherapy (principal); C50.811 Malignant neoplasm of overlapping sites of right female breast; Z17.1 Estrogen receptor negative status [ER-]; Z79.899 Other long term (current) drug therapy
CPT/HCPCS: 96413; J7050; J9355

== ENCOUNTER 2021-01-29 09:56 | Outpatient (CLI) | payer BC, SELFPAY ==
--- NOTE | 2021-01-29 10:15 | USR_ITS ---
PROCEDURE INFORMATION: Exam: US Abdomen Complete Exam date and time: 01/29/2021 10:15 AM Age: 45 years old Clinical indication: Screening exam; Other: Breast cancer; Prior surgery; Surgery date: 6+ months; Surgery type: Gb; Additional info: E11.65 - type 2 diabetes mellitus with hyperglycemia TECHNIQUE: Imaging protocol: Real-time ultrasound of the abdomen with image documentation. COMPARISON: No relevant prior studies available. FINDINGS: Liver: The liver is mildly echogenic with attenuation of the ultrasound beam. This is most commonly due to fatty infiltration. No liver mass is identified. The liver measures 17.2 cm in length. Gallbladder: There has been a cholecystectomy. Common bile duct: Common bile duct measures 3.7 mm. No duct dilatation. Pancreas: Visualized pancreas is unremarkable. Right kidney: But the right kidney has an appropriate appearance. There are no stones or nephrolithiasis. The right kidney measures 12.8 cm in length. Left kidney: The left kidney is appropriate in appearance. No stones or hydronephrosis. The left kidney measures 12.9 cm in length. Spleen: The spleen is homogeneous in echogenicity and appropriate in appearance measuring 12.3 cm in length. Aorta: The aorta is unremarkable measuring 1.6 cm. Inferior vena cava: Normal. US/US abdomen complete* [id number] IMPRESSION: 1. Postoperative cholecystectomy. No duct dilatation. 2. No acute abnormality. Probable fatty infiltration liver is noted.
== END 2021-01-29 09:57 | disposition home or self-care (01) ==
PROVIDERS: PCP Nurse Practitioner; Visit Provider Nurse Practitioner
DX: E11.65 Type 2 diabetes mellitus with hyperglycemia (principal); Z79.4 Long term (current) use of insulin; Z90.49 Acquired absence of other specified parts of digestive tract
CPT/HCPCS: 76700

== ENCOUNTER 2021-02-09 06:48 | Outpatient (RCR) | payer BC, SELFPAY ==
[2021-02-09] MEDS: alteplase 1 mg/mL SDV 2 mL 2 MG IV (09:27)
[2021-02-09 10:00] LABS: Basophils % 0.1 %; Hematocrit 44.2 % (37.0-47.0); Hemoglobin 14.2 g/dL (11.5-15.3); Lymphocytes # 2.2 10^3/uL (0.8-4.8); Lymphocytes % 31.1 %; Mean Corpuscular HGB Conc 32.1 g/dL (30.0-36.0); Mean Corpuscular Hemoglobin 28.5 pg (28.0-34.0); Mean Corpuscular Volume 88.8 fl (81-99); Mean Platelet Volume 8.8 fL (7.4-10.4); Monocytes # 0.7 10^3/uL (0.2-0.9); Monocytes % 9.6 %; Neutrophils # 4.06 10^3/uL (1.8-7.7); Neutrophils % 58.5 %; Nucleated Red Blood Cells % 0 %; Platelet Count 188 10^3/cmm (130-400); Red Blood Count 4.98 10^6/uL (4.1-5.3); Red Cell Distribution Width 13.5 % (12.1-15.1)
[2021-02-09 10:32] LABS: Alanine Aminotransferase 46 U/L (0-33); Albumin Level 4.3 g/dL (3.5-5.2); Alkaline Phosphatase 86 IU/L (35-105); Aspartate Amino Transferase 41 U/L (0-32); Blood Urea Nitrogen 10 mg/dL (6-20); Calcium 9.1 mg/dL (8.5-10.5); Carbon Dioxide 25 mmol/L (22-29); Chloride 101 mmol/L (98-107); Glomerular Filtration Rate 172.6 mL/min (90-130); Glucose 204 mg/dL (65-115); Osmolality Calculated 291 mOsm/kg (285-295); Sodium 138 mmol/L (136-145); Total Bilirubin 0.3 mg/dL (0.15-1.2); Total Protein 7.3 g/dL (6.6-8.7)
--- NOTE | 2021-02-09 10:47 | ONC FU_ITS ---
Dr. Martin Patient Follow-Up Note Patient: Jyoti Salazar Unit #: [id number]: 1975 Dicatated By: Wisam Martin M.D.Date of Visit:Feb 09, 2021 Onc Med Follow-up/Prog Note Chief Complaint: Breast cancer. History of Present Illness: This is a 45 year-old woman with multifocal grade 2 invasive cancer of the right breast, stage IA (T1c, N1mi, M0), ER/MO negative and HER-2/kimberley positive. She had presented with redness, pain, and swelling in the right breast. Bilateral mammograms on 03/29/2020 showed no suspicious masses, calcifications, or other significant findings. Right breast ultrasound showed a 0.7 x 0.6 x 1.1 cm irregular hypoechoic mass at the 12 o'clock position of the right breast located 1 cm from the nipple. At the 12:00 subareolar region there was a 0.7 x 0.3 x 0.6 cm hypoechoic irregular mass. Both demonstrated internal vascularity, suspicious for malignancy. She underwent ultrasound guided biopsy of both lesions on 04/02/2020. Pathology showed invasive breast carcinoma of no special type, grade 2 out of 3. The breast prognostic profile showed ER and MO negative. HER-2/kimberley was positive, 3+ by IHC. CORBY 67 was high at 16%. Pathology on the subareolar lesion apparently showed papilloma. On 04/22/2020 she underwent right axillary lumpectomy at 3 sites together with right sentinel axillary lymph node biopsy/axillary node sampling. Pathology showed grade 2 invasive ductal carcinoma at 2 sites, one measuring 1.1 cm in greatest dimension and the other measuring 0.9 cm in greatest dimension. The larger lesion had associated high-grade DCIS, but not extensive. The smaller lesion showed focal extension of tumor to the inked lateral resection margin. There was no involvement in 1 sentinel axillary lymph node. There was micro metastatic carcinoma involving 1 of 7 nonsentinel lymph nodes. It measured 0.6 mm. The 3rd lumpectomy specimen showed intraductal papilloma with usual ductal hyperplasia. She then underwent bilateral mastectomy on 05/05/2020. She had medical oncology consultation with Dr. Kira Dominguez on 05/03/2020. She was recommended to undergo adjuvant chemotherapy with 6 cycles of TCH. She underwent placement of Port-A-Cath venous access device on 05/24/2020, and she began cycle 1 of TCH on 05/27/2020. She was given first cycle prophylaxis with Neulasta. Her baseline echocardiogram on 05/04/2020 showed normal LV systolic function with ejection fraction estimated at 55 to 60%. She was seen here initially on 06/09/2020, as she had moved to this area and she wished to continue her further chemotherapy locally. Her genetic screening was unrevealing. She returned on 06/17/2020 for cycle 2 of TCH. She tolerated that treatment well and she continued treatment at 3-week intervals. She completed cycle 6 on 09/09/2020. Her other medical illnesses include hypertension, hyperlipidemia, type 2 diabetes, asthma, GERD, irritable bowel syndrome, and polycystic ovarian disease. She has a history of eczema. She is a non-smoker. INTERIM HISTORY: She continued with her 1st cycle of Herceptin monotherapy on 09/30/2020. She then returned to [place] and she underwent reconstructive surgery on 10/29/2020. She also received cycle 2 of Herceptin monotherapy. She then returned here and continued treatment at 3-week intervals. As of 01/19/2021 she received cycle 6 of Herceptin monotherapy. She is seen for a followup visit. Following her last treatment she had developed sinusitis symptoms and she subsequently was confirmed to have COVID-19 virus infection. She had just minor symptoms, which included a lost of taste and smell, but that lasted only 4 days. She did not require any treatment, and she recovered uneventfully. She does complain of some fatigue, she has normal activity. ECOG score is 0. Appetite is good. She has not had fever or hot flashes. She does have some sweating, though. She still has some sinus congestion and drainage. She has not had sore mouth or throat. She has no shortness of breath, cough, or chest pain. She has no GI or complaints. She has some joint soreness after activity. She has had some sinus headache. She still has some numbness in her toes. Medications: Acetaminophen 2 (325 mg) Tablet, chewable Oral q 6 hours PRN, Albuterol Sulfate 1 Puff(s) (of 108 (90 base) mcg/act) Aerosol Powder, Breath Activated Inhalation q 6 hours, Cholecalciferol 1 (10 mcg ) Tablet, chewable Oral daily, Dapagliflozin-metFORMIN HCl ER 1 (5-1000 mg) Tablet SR 24 HR Oral b.i.d., Effexor XR (75 mg) Capsule SR 24 HR Oral daily, Flonase 2 [place](s) (of 50 mcg/act) Suspension Nasal daily, Levemir FlexTouch Subcutaneous, Lipitor 1 (20 mg) Tablet Oral at bedtime, Meclizine HCl 1 (25 mg) Tablet Oral PRN, NovoLOG FlexPen Subcutaneous, Ozempic (0.25 or 0.5 MG/DOSE) 0.5 mg (of 2 mg/1.5mL) Subcutaneous q on , Singulair 1 (10 mg) Tablet Oral daily Allergies: Iodinated Contrast Dye Vital Signs: Performed on Feb 09, 2021 10:29 Height - 65.00 in Weight - 224.8 lbs (HIGH) BSA - 2.08 sq.m BMI - 37.41 (HIGH) Temperature - 97.4 F (LOW) Pulse - 88 /min Respiration - 18 /min BP - 146/80 mm(hg) (HIGH) O2 Sat - 97 % Pain - 0 Fatigue - 3 Physical Examination: Constitutional - She looks good generally, Eyes - Sclerae nonicteric. Conjunctivae clear, ENMT - No lesions noted in the oral cavity, Hematologic/Lymphatic - No cervical, clavicular, or axillary adenopathy, Respiratory - Lungs are clear with good air movement bilaterally, Cardiovascular - Heart rhythm is regular. There is no murmur, gallop, or rub noted, Abdomen - Soft. Liver and spleen are not enlarged. There is no abdominal mass or ascites noted and there is no inguinal adenopathy, Extremities - No edema, Integumentary - There has been some interval improvement in her skin eruption, Neurologic - No focal neurologic deficits noted. Lab/Imaging: Test performed on Feb 09, 2021 09:46 Sodium 138 mmol/L Potassium 4.0 mmol/L Chloride 101 mmol/L CO2 25 mmol/L Anion Gap 16.0 BUN 10 mg/dL Creatinine 0.4 mg/dL Cr Clearance (Est) 281.8300 mL/min eGFR 172.6 mL/min Glucose 204 mg/dL Osmolality - Calculated 291 mOsm/kg Calcium 9.1 mg/dL Protein, Total 7.3 g/dL Albumin 4.3 g/dL Globulin 3.0 g/dL Bilirubin, Total 0.3 mg/dL ALT (SGPT) 46 U/L AST (SGOT) 41 U/L Alkaline Phosphatase 86 IU/L WBC 7.0 10 3/uL RBC 4.98 10 6/uL HGB 14.2 g/dL HCT 44.2 % MCV 88.8 fl MCH 28.5 pg MCHC 32.1 g/dL RDW 13.5 % Platelet Count 188 10 3/cmm MPV 8.8 fL Neutrophils 4.06 10 3/uL Lymphocytes 2.2 10 3/uL Monocytes 0.7 10 3/uL Eosinophils 0.0 10 3/uL Basophils 0.0 10 3/uL Neutrophil % 58.5 % Lymphocyte % 31.1 % Monocyte % 9.6 % Eosinophil % 0.0 % Basophils % 0.1 % NRBC % 0 % Problem List: 1. Multifocal grade 2 invasive cancer of the right breast, stage IA (T1c, N1mi, M0), ER/MO negative and HER-2/kimberley positive. 2. Type 2 diabetes. 3. Hyperlipidemia. 4. GERD. 5. Irritable bowel syndrome. 6. Mild asthma. 7. History of polycystic ovarian syndrome. 8. Anxiety. Problems Addressed with this Encounter and Plan: Patient with multifocal grade 2 invasive cancer of the right breast, stage IA (T1c, N1mi, M0), ER/MO negative and HER-2/kimberley positive. Her initial treatment included ultrasound guided biopsy of the right breast followed by right breast lumpectomy with axillary sentinel lymph node biopsy/axillary node sampling on 04/22/2020 and subsequent bilateral mastectomy on 05/05/2020. She began cycle 1 of adjuvant TCH chemotherapy on 05/27/2020. She tolerated well and she then continued treatment at 3-week intervals with no dose reductions or delays. She completed her 6th cycle on 09/09/2020. She then continued with cycle 1 of Herceptin monotherapy on 09/30/2020. She underwent reconstructive surgery in [place] on 10/19/2020, she also received cycle 2 of Herceptin monotherapy at that time. She then continued treatment at 3-week intervals. As of 01/19/2021 she received her 6th cycle of Herceptin monotherapy. She subsequently was diagnosed with COVID-19 virus infection, she has recovered uneventfully. She has otherwise been doing well. She will proceed with cycle 7 of Herceptin monotherapy, which is now a total of 13 of 17 planned cycles. She returns in 3 weeks for treatment. She will be due for a repeat echocardiogram prior to that treatment. I will see her for a followup visit in 6 weeks. Signed By: Wisam Martin M.D. <<Signature on File>>
[2021-02-09] MEDS: diphenhydrAMINE 25 mg Capsule PO (10:50)
[2021-02-09] MEDS: sodium chloride 0.9% 250 ML 75 ML IV (10:50)
[2021-02-09] MEDS: acetaminophen 325 mg Tablet 650 MG PO (10:50)
== END 2021-02-10 23:59 | disposition home or self-care (01) ==
LOC: ONCMED 06:48
PROVIDERS: PCP Nurse Practitioner; Visit Provider Internal Medicine Medical Oncology
DX: Z51.11 Encounter for antineoplastic chemotherapy (principal); C50.811 Malignant neoplasm of overlapping sites of right female breast; Z17.1 Estrogen receptor negative status [ER-]; E11.9 Type 2 diabetes mellitus without complications; E78.5 Hyperlipidemia, unspecified; K21.9 Gastro-esophageal reflux disease without esophagitis; K58.9 Irritable bowel syndrome, unspecified; J45.20 Mild intermittent asthma, uncomplicated; F41.9 Anxiety disorder, unspecified; E28.2 Polycystic ovarian syndrome; Z79.899 Other long term (current) drug therapy; Z90.11 Acquired absence of right breast and nipple
CPT/HCPCS: 36593; 80053; 85025; 96375; 96413; 99215; J2997; J7050; J9355

== ENCOUNTER 2021-02-10 10:57 | Outpatient (CLI) | payer BC, SELFPAY ==
--- NOTE | 2021-02-10 11:09 | USCV_ITS ---
Jyoti Salazar Age: 45 Gender: F : 1975 Exam Date: 02/10/2021 11:48 Ordering Phys: Wisam Martin MD Technologist: [place]am [place] [facility] [place]ication: HIGH RISK MEDS BP: 134 / 74 HR: 87 Rhythm: Sinus Technical Quality: Good MEASUREMENTS (Male / Female) Normal Values 2D ECHO LV Diastolic Diameter PLAX 3.6 cm 4.2 - 5.9 / 3.9 - 5.3 cm LV Systolic Diameter PLAX 2.2 cm IVS Diastolic Thickness 0.9 cm 0.6 - 1.0 / 0.6 - 0.9 cm IVS Systolic Thickness 1.1 cm LVPW Diastolic Thickness 1.0 cm 0.6 - 1.0 / 0.6 - 0.9 cm LVPW Systolic Thickness 1.2 cm LVOT Diameter 2.0 cm LV Ejection Fraction 2D Teich 71.3 % LV Ejection Fraction MOD 2C 56.0 % LV Ejection Fraction 2C AL 57.6 % LA Diameter 3.8 cm LA Width 3.3 cm LA Height 5.2 cm RA Width 3.0 cm RA Height 4.1 cm FINDINGS Left Ventricle Right Ventricle Right Atrium Left Atrium Mitral Valve Aortic Valve Tricuspid Valve Pulmonic Valve Pericardium Aorta CONCLUSIONS This is a limited echocardiogram performed to assess LV systolic function. LV systolic function is normal with EF of 55 to 60%. No regional wall motion abnormalities are seen. Compared to prior echocardiogram from 11/11/2020, no significant changes are noted. Raheem Morales MD (Electronically Signed) Final Date: 10 February 2021 17:51 S
== END 2021-02-10 10:58 | disposition home or self-care (01) ==
LOC: RAD 11:04
PROVIDERS: PCP Nurse Practitioner; Visit Provider Internal Medicine Medical Oncology
DX: C50.811 Malignant neoplasm of overlapping sites of right female breast (principal); Z79.899 Other long term (current) drug therapy
CPT/HCPCS: 93308

== ENCOUNTER 2021-03-10 06:37 | Outpatient (RCR) | payer BC, SELFPAY ==
[2021-03-10] MEDS: sodium chloride 0.9% 250 ML 75 ML IV (13:30)
[2021-03-10] MEDS: acetaminophen 325 mg Tablet 650 MG PO (13:30)
[2021-03-10] MEDS: diphenhydrAMINE 25 mg Capsule PO (13:30)
== END 2021-03-13 23:59 | disposition home or self-care (01) ==
LOC: ONCMED 06:37
PROVIDERS: PCP Nurse Practitioner; Visit Provider Internal Medicine Medical Oncology
DX: Z51.11 Encounter for antineoplastic chemotherapy (principal); C50.811 Malignant neoplasm of overlapping sites of right female breast; Z17.1 Estrogen receptor negative status [ER-]
CPT/HCPCS: 96413; J7050; J9355

== ENCOUNTER 2021-03-23 05:54 | Outpatient (RCR) | payer BC, SELFPAY ==
[2021-03-23 09:07] LABS: Basophils % 0.1 %; Eosinophils % 0.2 %; Hematocrit 45.4 % (37.0-47.0); Hemoglobin 14.8 g/dL (11.5-15.3); Lymphocytes # 2.4 10^3/uL (0.8-4.8); Mean Corpuscular HGB Conc 32.6 g/dL (30.0-36.0); Mean Corpuscular Hemoglobin 29.1 pg (28.0-34.0); Mean Corpuscular Volume 89.2 fl (81-99); Mean Platelet Volume 8.5 fL (7.4-10.4); Monocytes # 0.7 10^3/uL (0.2-0.9); Monocytes % 7.9 %; Neutrophils # 6.05 10^3/uL (1.8-7.7); Nucleated Red Blood Cells % 0 %; Platelet Count 232 10^3/cmm (130-400); Red Blood Count 5.09 10^6/uL (4.1-5.3); Red Cell Distribution Width 13.8 % (12.1-15.1); White Blood Count 9.3 10^3/uL (4.0-10.0)
[2021-03-23 09:19] LABS: Alanine Aminotransferase 33 U/L (0-33); Albumin Level 4.4 g/dL (3.5-5.2); Alkaline Phosphatase 77 IU/L (35-105); Anion Gap 16.2 (5-19); Aspartate Amino Transferase 42 U/L (0-32); Blood Urea Nitrogen 12 mg/dL (6-20); Carbon Dioxide 25 mmol/L (22-29); Chloride 101 mmol/L (98-107); Globulin 2.7 g/dL (1.3-4.6); Glomerular Filtration Rate 133.4 mL/min (90-130); Glucose 164 mg/dL (65-115); Osmolality Calculated 289 mOsm/kg (285-295); Potassium 4.2 mmol/L (3.5-5.1); Sodium 138 mmol/L (136-145); Total Bilirubin 0.4 mg/dL (0.15-1.2); Total Protein 7.1 g/dL (6.6-8.7)
[2021-03-23] MEDS: acetaminophen 325 mg Tablet 650 MG PO (10:35)
[2021-03-23] MEDS: diphenhydrAMINE 25 mg Capsule PO (10:35)
[2021-03-23] MEDS: sodium chloride 0.9% 250 ML 75 ML IV (10:35)
[2021-03-23 11:00] LABS: Estmated Average Glucose 189; Hemoglobin A1C 8.2 % (4.0-6.0)
--- NOTE | 2021-04-09 14:55 | ONC FU_ITS ---
Elysia Blackman Patient Note Patient: Jyoti Salazar Unit #: [id number]: 1975 Dictated By: Cortney LarsonDate of Visit: Mar 23, 2021 Onc MED Follow-Up/Prog Note Chief Complaint: Breast cancer. History of Present Illness: Mrs Salazar is a 45 year-old woman with multifocal grade 2 invasive cancer of the right breast, stage IA (T1c, N1mi, M0), ER/[place] negative and HER-2/kimberley positive. She had presented with redness, pain, and swelling in the right breast. Bilateral mammograms on 03/29/2020 showed no suspicious masses, calcifications, or other significant findings. Right breast ultrasound showed a 0.7 x 0.6 x 1.1 cm irregular hypoechoic mass at the 12 o'clock position of the right breast located 1 cm from the nipple. At the 12:00 subareolar region there was a 0.7 x 0.3 x 0.6 cm hypoechoic irregular mass. Both demonstrated internal vascularity, suspicious for malignancy. She underwent ultrasound guided biopsy of both lesions on 04/02/2020. Pathology showed invasive breast carcinoma of no special type, grade 2 out of 3. The breast prognostic profile showed ER and [place] negative. HER-2/kimberley was positive, 3+ by IHC. CORBY 67 was high at 16%. Pathology on the subareolar lesion apparently showed papilloma. On 04/22/2020 she underwent right axillary lumpectomy at 3 sites together with right sentinel axillary lymph node biopsy/axillary node sampling. Pathology showed grade 2 invasive ductal carcinoma at 2 sites, one measuring 1.1 cm in greatest dimension and the other measuring 0.9 cm in greatest dimension. The larger lesion had associated high-grade DCIS, but not extensive. The smaller lesion showed focal extension of tumor to the inked lateral resection margin. There was no involvement in 1 sentinel axillary lymph node. There was micro metastatic carcinoma involving 1 of 7 nonsentinel lymph nodes. It measured 0.6 mm. The 3rd lumpectomy specimen showed intraductal papilloma with usual ductal hyperplasia. She then underwent bilateral mastectomy on 05/05/2020. She had medical oncology consultation with Dr. Kira Dominguez on 05/03/2020. She was recommended to undergo adjuvant chemotherapy with 6 cycles of TCH. She underwent placement of Port-A-Cath venous access device on 05/24/2020, and she began cycle 1 of TCH on 05/27/2020. She was given first cycle prophylaxis with Neulasta. Her baseline echocardiogram on 05/04/2020 showed normal LV systolic function with ejection fraction estimated at 55 to 60%. She was seen here initially on 06/09/2020, as she had moved to this area and she wished to continue her further chemotherapy locally. Her genetic screening was unrevealing. She returned on 06/17/2020 for cycle 2 of TCH. She tolerated that treatment well and she continued treatment at 3-week intervals. She completed cycle 6 on 09/09/2020. Her other medical illnesses include hypertension, hyperlipidemia, type 2 diabetes, asthma, GERD, irritable bowel syndrome, and polycystic ovarian disease. She has a history of eczema. She is a non-smoker. INTERIM HISTORY: She continued with her 1st cycle of Herceptin monotherapy on 09/30/2020. She then returned to [place] and she underwent reconstructive surgery on 10/29/2020. She also received cycle 2 of Herceptin monotherapy. She then returned here and continued treatment at 3-week intervals. As of 01/19/2021 she received cycle 6 of Herceptin monotherapy. She was seen for a followup visit per Dr. Martin on February 09, 2021. Following her treatment on01/19/2021, she had developed sinusitis symptoms and she subsequently was confirmed to have COVID-19 virus infection. She had just minor symptoms, which included a lost of taste and smell, but that lasted only 4 days. She did not require any treatment, and she recovered uneventfully. Ms. Pierson is here today for follow-up. She is due for cycle 9 single agent trastuzumab. She has no new concerns today. Her fatigue is better. She denies any fever or chills. She denies any shortness of breath orthopnea. She said no lower extremity edema. She denies any chest pain or orthopnea. She denies any nausea or vomiting. She denies any diarrhea. She states she has not had any skin rashes or lesions. She remains very active. Her ECOG is 0. Past Medical History: Anxiety Asthma Breast cancer Gastroesophageal reflux disease Hyperlipidemia Hypertension Irritable bowel syndrome Polycystic ovarian disease Type II diabetes Covid-19 in 2020 Past Surgical History: Bilateral tympanostomy tube placement Cholecystectomy Hip resection arthroplasty Tonsillectomy Port placement in 2020 Bilateral breast reconstruction cleanout in 2020 Bilateral mastectomy in 2019 Right breast lumpectomy x 3 with axillary sentinel lymph node biopsy/axillary lymph node sampling in 2019 Ultrasound-guided biopsy of the right breast in 2019 Allergies: Iodinated Contrast Dye Medications: Acetaminophen 2 (325 mg) Tablet, chewable Oral q 6 hours PRN Albuterol Sulfate 1 Puff(s) (of 108 (90 base) mcg/act) Aerosol Powder, Breath Activated Inhalation q 6 hours Cholecalciferol 1 (10 mcg ) Tablet, chewable Oral daily Dapagliflozin-metFORMIN HCl ER 1 (5-1000 mg) Tablet SR 24 HR Oral b.i.d. Effexor XR (75 mg) Capsule SR 24 HR Oral daily Flonase 2 [place](s) (of 50 mcg/act) Suspension Nasal daily Levemir FlexTouch Subcutaneous Lipitor 1 (20 mg) Tablet Oral at bedtime Meclizine HCl 1 (25 mg) Tablet Oral PRN NovoLOG FlexPen Subcutaneous Ozempic (0.25 or 0.5 MG/DOSE) 0.5 mg (of 2 mg/1.5mL) Subcutaneous q on Sa Singulair 1 (10 mg) Tablet Oral daily Family History: Ms. Salazar's mother is alive: congestive heart failure, and type II diabetes, and hypertension. Ms. Salazar's father is alive: heart disease, and hypertension, and type II diabetes. Ms. Salazar has 1 brother who is alive: hypertension. She has 2 sisters: 2 alive. She has 1 maternal aunt who is alive: breast cancer. Both parents are still living at age 67 and both have diabetes and coronary artery disease. A 42-year-old brother has hypertension. Two sisters are in good health. Her paternal father had stomach cancer, an aunt had breast cancer, and a cousin had thyroid cancer. Social History: Ms. Salazar is . Ms. Salazar has never smoked. She has no history of drinking. She is a non-smoker. She does not drink alcohol. Review Of Symptoms: <See Above> Vital Signs: Performed on Mar 23, 2021 09:52 Height - 65.00 in Weight - 224 lbs (LOW) BSA - 2.08 sq.m BMI - 37.28 (HIGH) Temperature - 98.1 F (LOW) Pulse - 98 /min Respiration - 18 /min BP - 153/66 mm(hg) (HIGH) O2 Sat - 96 % Pain - 0 Fatigue - 5,0 - Fully active, able to carry on all predisease activities without restrictions. (ECOG) Physical Examination: Constitutional Alert, oriented, no acute distress. Skin pink, warm and dry. Head Normocephalic; atraumatic. Eyes Conjunctivae and sclerae are clear and without icterus. Pupils are reactive and equal. Hematologic/Lymphatic No petechiae or purpura. No tender or palpable lymph nodes in the cervical or supraclavicular areas. Respiratory Lungs are clear to auscultation without rhonchi or wheezing. Cardiovascular Regular rate and rhythm of heart without murmurs,clicks, gallops or rubs. Back/Spine Non-tender to palpation. Extremities No visible deformities, no cyanosis, clubbing or edema. Musculoskeletal No tenderness or swelling, normal range of motion without obvious weakness. Integumentary No new rashes or lesions. Neurologic No sensory or motor deficits, normal cerebellar function, normal gait. Psychiatric Alert and oriented times three. Coherent speech. Verbalizes understanding of our discussions today. Laboratory:Test performed on Mar 23, 2021 08:45 Sodium 138 mmol/L Potassium 4.2 mmol/L Chloride 101 mmol/L Est Avg Glucose (eAG) 189 mg/dL CO2 25 mmol/L Anion Gap 16.2 BUN 12 mg/dL Creatinine 0.5 mg/dL Cr Clearance (Est) 225.4700 mL/min eGFR 133.4 mL/min Glucose 164 mg/dL Osmolality - Calculated 289 mOsm/kg Calcium 9.0 mg/dL Protein, Total 7.1 g/dL Albumin 4.4 g/dL Globulin 2.7 g/dL Bilirubin, Total 0.4 mg/dL ALT (SGPT) 33 U/L AST (SGOT) 42 U/L Alkaline Phosphatase 77 IU/L Hemoglobin A1C % 8.2 % WBC 9.3 10 3/uL RBC 5.09 10 6/uL HGB 14.8 g/dL HCT 45.4 % MCV 89.2 fl MCH 29.1 pg MCHC 32.6 g/dL RDW 13.8 % Platelet Count 232 10 3/cmm MPV 8.5 fL Neutrophils 6.05 10 3/uL Lymphocytes 2.4 10 3/uL Monocytes 0.7 10 3/uL Eosinophils 0.0 10 3/uL Basophils 0.0 10 3/uL Neutrophil % 65.0 % Lymphocyte % 26.0 % Monocyte % 7.9 % Eosinophil % 0.2 % Basophils % 0.1 % NRBC % 0 % Impression: 1. Multifocal grade 2 invasive cancer of the right breast, stage IA (T1c, N1mi, M0), ER/[place] negative and HER-2/kimberley positive. 2. Type 2 diabetes. 3. Hyperlipidemia. 4. GERD. 5. Irritable bowel syndrome. 6. Mild asthma. 7. History of polycystic ovarian syndrome. 8. Anxiety. Plan/Problems Addressed at this Visit: 1. Multifocal grade 2 invasive cancer of the right breast, stage IA (T1c, N1mi, M0), ER/[place] negative and HER-2/kimberley positive. Her initial treatment included ultrasound guided biopsy of the right breast followed by right breast lumpectomy with axillary sentinel lymph node biopsy/axillary node sampling on 04/22/2020 and subsequent bilateral mastectomy on 05/05/2020. She began cycle 1 of adjuvant TCH chemotherapy on 05/27/2020. She tolerated it well and she then continued treatment at 3-week intervals with no dose reductions or delays. She completed her 6th cycle on 09/09/2020. She then continued with cycle 1 of Herceptin monotherapy on 09/30/2020. She underwent reconstructive surgery in [place] on 10/19/2020, she also received cycle 2 of Herceptin monotherapy at that time. She then continued treatment at 3-week intervals. As of 01/19/2021 she received her 6th cycle of Herceptin monotherapy. She subsequently was diagnosed with COVID-19 virus infection, she has recovered uneventfully. She has otherwise been doing well. A. Proceed with cycle 9 of Herceptin monotherapy, which is now a total of 15 of 17 planned cycles. B. She did have repeat limited echocardiogram on 02/10/2021 which reported LVEF at 55 to 60% with no significant change compared to 11/11/2020 echocardiogram. C. Today's labs reviewed in detail discussed with Mrs. Salazar and a copy was given to her. WBC 9.3, hemoglobin 14.8, platelets 132,000, ANC is 6050. Potassium 4.2 random glucose 164 creatinine 0.6 and LFTs are normal. D. She will return in 3 weeks for single agent trastuzumab. E. She will return in 6 weeks for follow-up with CBC CMP as well as office visit and she will be due for cycle 17 of 17 single unit trastuzumab at that time. F. Mrs. Salazar was instructed to contact us in interim should questions or problems arise. Signed By: Cortney Larson-, AOCNP Wisam Martin MD <<Signature on File>>
== END 2021-04-12 23:59 | disposition home or self-care (01) ==
LOC: ONCMED 05:54
PROVIDERS: PCP Nurse Practitioner; Visit Provider Nurse Practitioner
DX: Z51.11 Encounter for antineoplastic chemotherapy (principal); C50.811 Malignant neoplasm of overlapping sites of right female breast; Z17.1 Estrogen receptor negative status [ER-]; E11.9 Type 2 diabetes mellitus without complications; E78.5 Hyperlipidemia, unspecified; K21.9 Gastro-esophageal reflux disease without esophagitis; K58.9 Irritable bowel syndrome, unspecified; J45.20 Mild intermittent asthma, uncomplicated; E28.2 Polycystic ovarian syndrome; F41.9 Anxiety disorder, unspecified; Z79.899 Other long term (current) drug therapy
CPT/HCPCS: 80053; 83036; 85025; 96413; 99215; J7050; J9355

== ENCOUNTER 2021-05-04 06:29 | Outpatient (RCR) | payer BC, SELFPAY ==
[2021-04-13] MEDS: acetaminophen 325 mg Tablet 650 MG PO (13:30)
[2021-04-13] MEDS: diphenhydrAMINE 25 mg Capsule PO (13:30)
[2021-04-13] MEDS: sodium chloride 0.9% 250 ML 75 ML IV (13:30)
[2021-05-04 10:06] LABS: Basophils % 0.2 %; Eosinophils # 0.1 10^3/uL (0.0-0.8); Eosinophils % 0.5 %; Hematocrit 44.3 % (37.0-47.0); Hemoglobin 14.7 g/dL (11.5-15.3); Lymphocytes # 2.6 10^3/uL (0.8-4.8); Mean Corpuscular HGB Conc 33.2 g/dL (30.0-36.0); Mean Corpuscular Hemoglobin 29.1 pg (28.0-34.0); Mean Corpuscular Volume 87.7 fl (81-99); Mean Platelet Volume 8.7 fL (7.4-10.4); Monocytes # 0.7 10^3/uL (0.2-0.9); Monocytes % 7.5 %; Neutrophils # 5.91 10^3/uL (1.8-7.7); Neutrophils % 63.1 %; Nucleated Red Blood Cells % 0 %; Platelet Count 229 10^3/cmm (130-400); Red Blood Count 5.05 10^6/uL (4.1-5.3); Red Cell Distribution Width 13.5 % (12.1-15.1); White Blood Count 9.4 10^3/uL (4.0-10.0)
[2021-05-04 10:46] LABS: Alanine Aminotransferase 41 U/L (0-33); Albumin Level 4.3 g/dL (3.5-5.2); Alkaline Phosphatase 75 IU/L (35-105); Anion Gap 19.2 (5-19); Aspartate Amino Transferase 45 U/L (0-32); Blood Urea Nitrogen 11 mg/dL (6-20); Calcium 8.8 mg/dL (8.5-10.5); Carbon Dioxide 22 mmol/L (22-29); Chloride 101 mmol/L (98-107); Globulin 2.9 g/dL (1.3-4.6); Glomerular Filtration Rate 172.6 mL/min (90-130); Glucose 219 mg/dL (65-115); Osmolality Calculated 292 mOsm/kg (285-295); Potassium 4.2 mmol/L (3.5-5.1); Sodium 138 mmol/L (136-145); Total Bilirubin 0.3 mg/dL (0.15-1.2); Total Protein 7.2 g/dL (6.6-8.7)
[2021-05-04] MEDS: sodium chloride 0.9% 250 ML 75 ML IV (12:07)
[2021-05-04] MEDS: diphenhydrAMINE 25 mg Capsule PO (12:07)
[2021-05-04] MEDS: acetaminophen 325 mg Tablet 650 MG PO (12:07)
[2021-05-04 12:14] LABS: Thyroid Stimulating Hormone 0.68 uIU/mL (0.27-4.20); Vitamin B12 464 pg/mL (232-1245)
--- NOTE | 2021-05-06 10:19 | ONC FU_ITS ---
Dr. Martin Patient Follow-Up Note Patient: Jyoti Salazar Unit #: [id number]: 1975 Dicatated By: Wisam Martin M.D.Date of Visit:May 04, 2021 Onc Med Follow-up/Prog Note Chief Complaint: Breast cancer. History of Present Illness: This is a 45 year-old woman with multifocal grade 2 invasive cancer of the right breast, stage IA (T1c, N1mi, M0), ER/WI negative and HER-2/kimberley positive. She had presented with redness, pain, and swelling in the right breast. Bilateral mammograms on 03/29/2020 showed no suspicious masses, calcifications, or other significant findings. Right breast ultrasound showed a 0.7 x 0.6 x 1.1 cm irregular hypoechoic mass at the 12 o'clock position of the right breast located 1 cm from the nipple. At the 12:00 subareolar region there was a 0.7 x 0.3 x 0.6 cm hypoechoic irregular mass. Both demonstrated internal vascularity, suspicious for malignancy. She underwent ultrasound guided biopsy of both lesions on 04/02/2020. Pathology showed invasive breast carcinoma of no special type, grade 2 out of 3. The breast prognostic profile showed ER and WI negative. HER-2/kimberley was positive, 3+ by IHC. CORBY 67 was high at 16%. Pathology on the subareolar lesion apparently showed papilloma. On 04/22/2020 she underwent right axillary lumpectomy at 3 sites together with right sentinel axillary lymph node biopsy/axillary node sampling. Pathology showed grade 2 invasive ductal carcinoma at 2 sites, one measuring 1.1 cm in greatest dimension and the other measuring 0.9 cm in greatest dimension. The larger lesion had associated high-grade DCIS, but not extensive. The smaller lesion showed focal extension of tumor to the inked lateral resection margin. There was no involvement in 1 sentinel axillary lymph node. There was micro metastatic carcinoma involving 1 of 7 nonsentinel lymph nodes. It measured 0.6 mm. The 3rd lumpectomy specimen showed intraductal papilloma with usual ductal hyperplasia. She then underwent bilateral mastectomy on 05/05/2020. She had medical oncology consultation with Dr. Kira Dominguez on 05/03/2020. She was recommended to undergo adjuvant chemotherapy with 6 cycles of TCH. She underwent placement of Port-A-Cath venous access device on 05/24/2020, and she began cycle 1 of TCH on 05/27/2020. She was given first cycle prophylaxis with Neulasta. Her baseline echocardiogram on 05/04/2020 showed normal LV systolic function with ejection fraction estimated at 55 to 60%. She was seen here initially on 06/09/2020, as she had moved to this area and she wished to continue her further chemotherapy locally. Her genetic screening was unrevealing. She returned on 06/17/2020 for cycle 2 of TCH. She tolerated that treatment well and she continued treatment at 3-week intervals. She completed cycle 6 on 09/09/2020. Her other medical illnesses include hypertension, hyperlipidemia, type 2 diabetes, asthma, GERD, irritable bowel syndrome, and polycystic ovarian disease. She has a history of eczema. She is a non-smoker. INTERIM HISTORY: She continued with her 1st cycle of Herceptin monotherapy on 09/30/2020. She then returned to [place] and she underwent reconstructive surgery on 10/29/2020. She also received cycle 2 of Herceptin monotherapy. She then returned here and continued treatment at 3-week intervals. As of 04/13/2021 she received cycle 10 of Herceptin monotherapy. She is seen for a followup visit. She has been feeling okay, though she complains that she has been feeling more tired, and she feels that she has not been able to bounce back as she had previously. She is still doing light work. ECOG score is 1. She has good appetite. She has not had fever. She is having normal hot flashes . She has some sinus drainage. She has not had sore mouth or throat. She has a little bit of cough at night. She does not complain of shortness of breath or chest pain. She has no GI/ complaints other than some heartburn, but that does seem to be associated with specific foods. She has had some pain occasionally in the right hip area. She has no other joint or bone pain. She has had some sinus headache. She has also had some vertigo this past week. She has residual numbness/tingling in her toes, which is unchanged. Medications: Acetaminophen 2 (325 mg) Tablet, chewable Oral q 6 hours PRN, Albuterol Sulfate 1 Puff(s) (of 108 (90 base) mcg/act) Aerosol Powder, Breath Activated Inhalation q 6 hours, Cholecalciferol 1 (10 mcg ) Tablet, chewable Oral daily, Dapagliflozin-metFORMIN HCl ER 1 (5-1000 mg) Tablet SR 24 HR Oral b.i.d., Effexor XR (75 mg) Capsule SR 24 HR Oral daily, Flonase 2 [place](s) (of 50 mcg/act) Suspension Nasal daily, Levemir FlexTouch Subcutaneous, Lipitor 1 (20 mg) Tablet Oral at bedtime, Meclizine HCl 1 (25 mg) Tablet Oral PRN, NovoLOG FlexPen Subcutaneous, Ozempic (0.25 or 0.5 MG/DOSE) 0.5 mg (of 2 mg/1.5mL) Subcutaneous q on Sa, Singulair 1 (10 mg) Tablet Oral daily Allergies: Iodinated Contrast Dye Vital Signs: Performed on May 04, 2021 11:33 Height - 65.00 in Weight - 226.4 lbs (HIGH) BSA - 2.09 sq.m BMI - 37.68 (HIGH) Temperature - 97.8 F (LOW) Pulse - 96 /min Respiration - 16 /min BP - 160/79 mm(hg) (HIGH) O2 Sat - 98 % Pain - 0 Fatigue - 8 Physical Examination: Constitutional - She looks good generally, Eyes - Sclerae nonicteric. Conjunctivae clear, ENMT - No lesions noted in the oral cavity, Hematologic/Lymphatic - No cervical, clavicular, or axillary adenopathy, Respiratory - Lungs are clear with good air movement bilaterally, Cardiovascular - Heart rhythm is regular. There is no murmur, gallop, or rub noted, Abdomen - Soft. Liver and spleen are not enlarged. There is no abdominal mass or ascites noted and there is no inguinal adenopathy, Extremities - No edema, Neurologic - No focal neurologic deficits noted. Lab/Imaging: Test performed on May 04, 2021 09:54 Sodium 138 mmol/L TSH 0.68 uIU/mL Vitamin B12 464 pg/mL Potassium 4.2 mmol/L Chloride 101 mmol/L CO2 22 mmol/L Anion Gap 19.2 BUN 11 mg/dL Creatinine 0.4 mg/dL Cr Clearance (Est) 281.8300 mL/min eGFR 172.6 mL/min Glucose 219 mg/dL Osmolality - Calculated 292 mOsm/kg Calcium 8.8 mg/dL Protein, Total 7.2 g/dL Albumin 4.3 g/dL Globulin 2.9 g/dL Bilirubin, Total 0.3 mg/dL ALT (SGPT) 41 U/L AST (SGOT) 45 U/L Alkaline Phosphatase 75 IU/L WBC 9.4 10 3/uL RBC 5.05 10 6/uL HGB 14.7 g/dL HCT 44.3 % MCV 87.7 fl MCH 29.1 pg MCHC 33.2 g/dL RDW 13.5 % Platelet Count 229 10 3/cmm MPV 8.7 fL Neutrophils 5.91 10 3/uL Lymphocytes 2.6 10 3/uL Monocytes 0.7 10 3/uL Eosinophils 0.1 10 3/uL Basophils 0.0 10 3/uL Neutrophil % 63.1 % Lymphocyte % 28.0 % Monocyte % 7.5 % Eosinophil % 0.5 % Basophils % 0.2 % NRBC % 0 % Problem List: 1. Multifocal grade 2 invasive cancer of the right breast, stage IA (T1c, N1mi, M0), ER/WI negative and HER-2/kimberley positive. 2. Type 2 diabetes. 3. Hyperlipidemia. 4. GERD. 5. Irritable bowel syndrome. 6. Mild asthma. 7. History of polycystic ovarian syndrome. 8. Anxiety. Problems Addressed with this Encounter and Plan: Patient with multifocal grade 2 invasive cancer of the right breast, stage IA (T1c, N1mi, M0), ER/WI negative and HER-2/kimberley positive. Her initial treatment included ultrasound guided biopsy of the right breast followed by right breast lumpectomy with axillary sentinel lymph node biopsy/axillary node sampling on 04/22/2020 and subsequent bilateral mastectomy on 05/05/2020. She began cycle 1 of adjuvant TCH chemotherapy on 05/27/2020. She tolerated well and she then continued treatment at 3-week intervals with no dose reductions or delays. She completed her 6th cycle on 09/09/2020. She then continued with cycle 1 of Herceptin monotherapy on 09/30/2020. She underwent reconstructive surgery in [place] on 10/19/2020, she also received cycle 2 of Herceptin monotherapy at that time. She then continued treatment at 3-week intervals. As of 01/19/2021 she received her 6th cycle of Herceptin monotherapy. She subsequently was diagnosed with COVID-19 virus infection, but she recovered uneventfully. And she was able to continue Herceptin at 3-week intervals. As of 04/13/2021 she received cycle 10 of Herceptin monotherapy. At this point she has been feeling a little more fatigued, and there has been some decline in her performance status. She otherwise appears to be tolerating treatment very well, and thus far there has been no evidence of recurrence of the breast cancer. She will proceed now with cycle 11 of Herceptin monotherapy. As such, she will now have received a total of 17 infusions of Herceptin, and she will have completed her full course of treatment. She will be scheduled for a follow-up visit in 1 month. Signed By: Wisam Martin M.D. <<Signature on File>>
== END 2021-05-13 23:59 | disposition home or self-care (01) ==
LOC: ONCMED 06:29
PROVIDERS: PCP Nurse Practitioner; Visit Provider Internal Medicine Medical Oncology
DX: Z51.11 Encounter for antineoplastic chemotherapy (principal); C50.811 Malignant neoplasm of overlapping sites of right female breast; Z17.1 Estrogen receptor negative status [ER-]; E11.9 Type 2 diabetes mellitus without complications; E78.5 Hyperlipidemia, unspecified; K21.9 Gastro-esophageal reflux disease without esophagitis; K58.9 Irritable bowel syndrome, unspecified; J45.20 Mild intermittent asthma, uncomplicated; F41.9 Anxiety disorder, unspecified; Z87.42 Personal history of other diseases of the female genital tract; Z79.4 Long term (current) use of insulin; Z79.899 Other long term (current) drug therapy
CPT/HCPCS: 80053; 82607; 84443; 85025; 96413; 99215; J7050; J9355

== ENCOUNTER → 2021-05-17 16:35 | Outpatient (BNVA) | payer BC, SELFPAY | PROVIDERS: PCP Nurse Practitioner; Visit Provider Nurse Practitioner Family | DX: R50.9 Fever, unspecified (principal); R05.9 Cough, unspecified; J45.909 Unspecified asthma, uncomplicated | CPT/HCPCS: 87400; 87635 ==

== ENCOUNTER 2021-06-03 09:52 | Outpatient (RCR) | payer BC, SELFPAY ==
[2021-06-03 10:23] LABS: Basophils % 0.2 %; Eosinophils # 0.1 10^3/uL (0.0-0.8); Eosinophils % 0.9 %; Hematocrit 44.8 % (37.0-47.0); Hemoglobin 14.9 g/dL (11.5-15.3); Lymphocytes # 2.9 10^3/uL (0.8-4.8); Lymphocytes % 25.4 %; Mean Corpuscular HGB Conc 33.3 g/dL (30.0-36.0); Mean Corpuscular Hemoglobin 29.9 pg (28.0-34.0); Mean Corpuscular Volume 89.8 fl (81-99); Mean Platelet Volume 8.9 fL (7.4-10.4); Monocytes # 0.7 10^3/uL (0.2-0.9); Monocytes % 6.3 %; Neutrophils # 7.41 10^3/uL (1.8-7.7); Nucleated Red Blood Cells % 0 %; Platelet Count 226 10^3/cmm (130-400); Red Blood Count 4.99 10^6/uL (4.1-5.3); White Blood Count 11.2 10^3/uL (4.0-10.0)
[2021-06-03 10:45] LABS: Alanine Aminotransferase 37 U/L (0-33); Albumin Level 4.5 g/dL (3.5-5.2); Alkaline Phosphatase 88 IU/L (35-105); Anion Gap 18.8 (5-19); Aspartate Amino Transferase 38 U/L (0-32); Blood Urea Nitrogen 11 mg/dL (6-20); Calcium 8.7 mg/dL (8.5-10.5); Carbon Dioxide 22 mmol/L (22-29); Chloride 96 mmol/L (98-107); Globulin 2.3 g/dL (1.3-4.6); Glomerular Filtration Rate 172.6 mL/min (90-130); Glucose 273 mg/dL (65-115); Osmolality Calculated 285 mOsm/kg (285-295); Potassium 3.8 mmol/L (3.5-5.1); Sodium 133 mmol/L (136-145); Total Bilirubin 0.3 mg/dL (0.15-1.2); Total Protein 6.8 g/dL (6.6-8.7)
== END 2021-06-13 23:59 | disposition home or self-care (01) ==
LOC: ONCMED 09:52
PROVIDERS: PCP Nurse Practitioner; Visit Provider Internal Medicine Medical Oncology
DX: C50.811 Malignant neoplasm of overlapping sites of right female breast (principal); Z17.1 Estrogen receptor negative status [ER-]; Z79.899 Other long term (current) drug therapy
CPT/HCPCS: 36591; 80053; 85025

== ENCOUNTER 2021-06-30 13:58 | Outpatient (RCR) | payer BC, SELFPAY ==
--- NOTE | 2021-06-30 14:02 | USCV_ITS ---
Jyoti Salazar Age: 45 Gender: F : 1975 Exam Date: 06/30/2021 14:07 Ordering Phys: Wisam Martin MD Technologist: Kandy Carroll [place]am Location[place] [facility] [place]ication: BREAST CANCER HIGH RISK MEDICATION BP: 122 / 79 HR: 90 Rhythm: Sinus Technical Quality: Fair MEASUREMENTS (Male / Female) Normal Values 2D ECHO LV Diastolic Diameter PLAX 3.1 cm 4.2 - 5.9 / 3.9 - 5.3 cm LV Systolic Diameter PLAX 2.1 cm IVS Diastolic Thickness 1.3 cm 0.6 - 1.0 / 0.6 - 0.9 cm IVS Systolic Thickness 1.5 cm LVPW Diastolic Thickness 1.7 cm 0.6 - 1.0 / 0.6 - 0.9 cm LVPW Systolic Thickness 2.0 cm LVOT Diameter 2.0 cm LV Ejection Fraction 2D Teich 62.4 % LV Ejection Fraction MOD 2C 60.0 % LV Ejection Fraction 2C AL 63.8 % LA Diameter 3.2 cm Aorta at Sinotubular Diameter 2.0 cm M-MODE Aortic Annulus Diameter 2.7 cm LA Ao Ratio MM 1.3 FINDINGS Left Ventricle Normal left ventricular size, systolic function and increased wall thickness, with no regional wall motion abnormalities. Left ventricular ejection fraction is estimated at 65 %. Right Ventricle Normal right ventricular size and systolic function. Right Atrium Right atrium not well visualized. Left Atrium Normal left atrial size. Mitral Valve Mildly thickened mitral valve. Aortic Valve Aortic valve not well visualized. Tricuspid Valve Tricuspid valve not well visualized. Pulmonic Valve Pulmonic valve not well visualized. Pericardium No pericardial effusion. Aorta Normal size aortic root and proximal ascending aorta. CONCLUSIONS 1. Normal left ventricular size, systolic function and increased wall thickness, with no regional wall motion abnormalities. Left ventricular ejection fraction is estimated at 65 %. 2. Normal right ventricular size and systolic function. 3. When compared to previous echocardiogram dated 02/10/2021, there may not have been any significant change. Dominique Bailon MD (Electronically Signed) Final Date: 30 June 2021 17:56 S
[2021-06-30 15:03] LABS: Basophils % 0.1 %; Eosinophils # 0.1 10^3/uL (0.0-0.8); Eosinophils % 0.7 %; Hematocrit 45.1 % (37.0-47.0); Hemoglobin 14.8 g/dL (11.5-15.3); Lymphocytes # 3.4 10^3/uL (0.8-4.8); Lymphocytes % 30.7 %; Mean Corpuscular HGB Conc 32.8 g/dL (30.0-36.0); Mean Corpuscular Hemoglobin 29.5 pg (28.0-34.0); Mean Corpuscular Volume 89.8 fl (81-99); Mean Platelet Volume 8.9 fL (7.4-10.4); Monocytes # 0.8 10^3/uL (0.2-0.9); Monocytes % 7.2 %; Neutrophils % 60.4 %; Nucleated Red Blood Cells % 0 %; Platelet Count 246 10^3/cmm (130-400); Red Blood Count 5.02 10^6/uL (4.1-5.3); Red Cell Distribution Width 13.4 % (12.1-15.1); White Blood Count 11.1 10^3/uL (4.0-10.0)
[2021-06-30 15:24] LABS: Alanine Aminotransferase 32 U/L (0-33); Albumin Level 4.6 g/dL (3.5-5.2); Alkaline Phosphatase 85 IU/L (35-105); Anion Gap 15.9 (5-19); Aspartate Amino Transferase 40 U/L (0-32); Blood Urea Nitrogen 17 mg/dL (6-20); Calcium 9.5 mg/dL (8.5-10.5); Carbon Dioxide 23 mmol/L (22-29); Chloride 97 mmol/L (98-107); Globulin 2.3 g/dL (1.3-4.6); Glomerular Filtration Rate 172.6 mL/min (90-130); Glucose 248 mg/dL (65-115); Osmolality Calculated 284 mOsm/kg (285-295); Potassium 3.9 mmol/L (3.5-5.1); Sodium 132 mmol/L (136-145); Total Bilirubin 0.2 mg/dL (0.15-1.2); Total Protein 6.9 g/dL (6.6-8.7)
[2021-06-30 16:05] LABS: Estmated Average Glucose 212
== END 2021-07-11 23:59 | disposition home or self-care (01) ==
LOC: ONCMED 13:58
PROVIDERS: PCP Nurse Practitioner; Visit Provider Internal Medicine Medical Oncology
DX: C50.811 Malignant neoplasm of overlapping sites of right female breast (principal); Z17.1 Estrogen receptor negative status [ER-]
CPT/HCPCS: 36591; 80053; 83036; 85025; 93308

== ENCOUNTER 2021-08-05 06:49 | Outpatient (RCR) | payer SELFPAY ==
--- NOTE | 2021-07-19 18:09 | ONC FU_ITS ---
Dr. Martin Patient Follow-Up Note Patient: Jyoti Salazar Unit #: [id number]: 1975 Dicatated By: Wisam Martin M.D.Date of Visit:Jul 19, 2021 Onc Med Follow-up/Prog Note Chief Complaint: Breast cancer. History of Present Illness: This is a 45 year-old woman with multifocal grade 2 invasive cancer of the right breast, stage IA (T1c, N1mi, M0), ER/IL negative and HER-2/kimberley positive. She had presented with redness, pain, and swelling in the right breast. Bilateral mammograms on 03/29/2020 showed no suspicious masses, calcifications, or other significant findings. Right breast ultrasound showed a 0.7 x 0.6 x 1.1 cm irregular hypoechoic mass at the 12 o'clock position of the right breast located 1 cm from the nipple. At the 12:00 subareolar region there was a 0.7 x 0.3 x 0.6 cm hypoechoic irregular mass. Both demonstrated internal vascularity, suspicious for malignancy. She underwent ultrasound guided biopsy of both lesions on 04/02/2020. Pathology showed invasive breast carcinoma of no special type, grade 2 out of 3. The breast prognostic profile showed ER and [place] negative. HER-2/kimberley was positive, 3+ by IHC. CORBY 67 was high at 16%. Pathology on the subareolar lesion apparently showed papilloma. On 04/22/2020 she underwent right axillary lumpectomy at 3 sites together with right sentinel axillary lymph node biopsy/axillary node sampling. Pathology showed grade 2 invasive ductal carcinoma at 2 sites, one measuring 1.1 cm in greatest dimension and the other measuring 0.9 cm in greatest dimension. The larger lesion had associated high-grade DCIS, but not extensive. The smaller lesion showed focal extension of tumor to the inked lateral resection margin. There was no involvement in 1 sentinel axillary lymph node. There was micro metastatic carcinoma involving 1 of 7 nonsentinel lymph nodes. It measured 0.6 mm. The 3rd lumpectomy specimen showed intraductal papilloma with usual ductal hyperplasia. She then underwent bilateral mastectomy on 05/05/2020. She had medical oncology consultation with Dr. Kiar Dominguez on 05/03/2020. She was recommended to undergo adjuvant chemotherapy with 6 cycles of TCH. She underwent placement of Port-A-Cath venous access device on 05/24/2020, and she began cycle 1 of TCH on 05/27/2020. She was given first cycle prophylaxis with Neulasta. Her baseline echocardiogram on 05/04/2020 showed normal LV systolic function with ejection fraction estimated at 55 to 60%. She was seen here initially on 06/09/2020, as she had moved to this area and she wished to continue her further chemotherapy locally. Her genetic screening was unrevealing. She returned on 06/17/2020 for cycle 2 of TCH. She tolerated that treatment well and she continued treatment at 3-week intervals. She completed cycle 6 on 09/09/2020. She continued with her 1st cycle of Herceptin monotherapy on 09/30/2020. She then returned to [place] and she underwent reconstructive surgery on 10/29/2020. She also received cycle 2 of Herceptin monotherapy. She then returned here and continued treatment at 3-week intervals. As of 05/04/2021 she received her 11th and final cycle Herceptin monotherapy. Her other medical illnesses include hypertension, hyperlipidemia, type 2 diabetes, asthma, GERD, irritable bowel syndrome, and polycystic ovarian disease. She has a history of eczema. She is a non-smoker. INTERIM HISTORY: She is seen for a followup visit. She has been feeling good generally, though she complains that she still feels tired. 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 She has good appetite. She has not had fever or hot flashes, but she says she does sweat a lot. She has some allergy related sinus symptoms. She has not had sore mouth or throat. She does not complain of cough, and she is not been having shortness of breath or chest pain. She has had some heartburn, depending on what she eats. She has no other GI or complaints. She has had some pain in the left arm following a minor injury in May when she fell on the ice. She has no other joint or bone pain. She does not complain of headache or dizziness. 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 Medications: Acetaminophen 2 (325 mg) Tablet, chewable Oral q 6 hours PRN, Albuterol Sulfate 1 Puff(s) (of 108 (90 base) mcg/act) Aerosol Powder, Breath Activated Inhalation q 6 hours, Cholecalciferol 1 (10 mcg ) Tablet, chewable Oral daily, Dapagliflozin-metFORMIN HCl ER 1 (5-1000 mg) Tablet SR 24 HR Oral b.i.d., Effexor XR (75 mg) Capsule SR 24 HR Oral daily, Flonase 2 [place](s) (of 50 mcg/act) Suspension Nasal daily, Levemir FlexTouch (45 Units/mL) Subcutaneous daily, Lipitor 1 (20 mg) Tablet Oral at bedtime, Meclizine HCl 1 (25 mg) Tablet Oral PRN, NovoLOG FlexPen Subcutaneous, Ozempic (0.25 or 0.5 MG/DOSE) 0.5 mg (of 2 mg/1.5mL) Subcutaneous q on , Singulair 1 (10 mg) Tablet Oral daily Allergies: Iodinated Contrast Dye Vital Signs: Performed on Jul 19, 2021 16:23 Height - 65.00 in Weight - 228.6 lbs (HIGH) BSA - 2.09 sq.m BMI - 38.04 (HIGH) Temperature - 98.1 F (LOW) Pulse - 97 /min Respiration - 18 /min BP - 146/79 mm(hg) (HIGH) O2 Sat - 96 % Pain - 0 Fatigue - 7 Physical Examination: Constitutional - She looks good generally, Eyes - Sclerae nonicteric. Conjunctivae clear, ENMT - No lesions noted in the oral cavity, Hematologic/Lymphatic - No cervical or clavicular adenopathy, Respiratory - Lungs are clear with good air movement bilaterally, Cardiovascular - Heart rhythm is regular. There is no murmur, gallop, or rub noted, Breasts - There are no lesions noted in the chest wall/reconstruction bilaterally. There is no axillary adenopathy noted, Abdomen - Soft. Liver and spleen are not enlarged. There is no abdominal mass or ascites noted and there is no inguinal adenopathy, Extremities - No edema, Neurologic - No focal neurologic deficits noted. Lab/Imaging: Test performed on Jun 30, 2021 14:55 Sodium 132 mmol/L Potassium 3.9 mmol/L Chloride 97 mmol/L CO2 23 mmol/L Anion Gap 15.9 BUN 17 mg/dL Creatinine 0.4 mg/dL Cr Clearance (Est) 281.8300 mL/min eGFR 172.6 mL/min Glucose 248 mg/dL Osmolality - Calculated 284 mOsm/kg Calcium 9.5 mg/dL Protein, Total 6.9 g/dL Albumin 4.6 g/dL Globulin 2.3 g/dL Bilirubin, Total 0.2 mg/dL ALT (SGPT) 32 U/L AST (SGOT) 40 U/L Alkaline Phosphatase 85 IU/L WBC 11.1 10 3/uL RBC 5.02 10 6/uL HGB 14.8 g/dL HCT 45.1 % MCV 89.8 fl MCH 29.5 pg MCHC 32.8 g/dL RDW 13.4 % Platelet Count 246 10 3/cmm MPV 8.9 fL Neutrophils 6.70 10 3/uL Lymphocytes 3.4 10 3/uL Monocytes 0.8 10 3/uL Eosinophils 0.1 10 3/uL Basophils 0.0 10 3/uL Neutrophil % 60.4 % Lymphocyte % 30.7 % Monocyte % 7.2 % Eosinophil % 0.7 % Basophils % 0.1 % NRBC % 0 % Problem List: 1. Multifocal grade 2 invasive cancer of the right breast, stage IA (T1c, N1mi, M0), ER/IL negative and HER-2/kimberley positive. 2. Type 2 diabetes. 3. Hyperlipidemia. 4. GERD. 5. Irritable bowel syndrome. 6. Mild asthma. 7. History of polycystic ovarian syndrome. 8. Anxiety. Problems Addressed with this Encounter and Plan: Patient with multifocal grade 2 invasive cancer of the right breast, stage IA (T1c, N1mi, M0), ER/IL negative and HER-2/kimberley positive. Her initial treatment included ultrasound guided biopsy of the right breast followed by right breast lumpectomy with axillary sentinel lymph node biopsy/axillary node sampling on 04/22/2020 and subsequent bilateral mastectomy on 05/05/2020. She began cycle 1 of adjuvant TCH chemotherapy on 05/27/2020. She tolerated it well and she then continued treatment at 3-week intervals with no dose reductions or delays. She completed her 6th cycle on 09/09/2020. She then continued with cycle 1 of Herceptin monotherapy on 09/30/2020. She underwent reconstructive surgery in [place] on 10/19/2020, she also received cycle 2 of Herceptin monotherapy at that time. She then continued treatment at 3-week intervals. As of 05/04/2021 she received her 11th and final cycle of Herceptin monotherapy. At this point she is still having some fatigue. Overall, though, she tolerated her treatment well. Thus far there has been no evidence of recurrence of the breast cancer. She continues on expectant management. I will see her again in 6 months. Signed By: Wisam Martin M.D. <<Signature on File>>
== END 2021-08-11 23:59 | disposition home or self-care (01) ==
LOC: ONCMED 06:49
PROVIDERS: PCP Nurse Practitioner; Visit Provider Internal Medicine Medical Oncology
DX: Z08 Encounter for follow-up examination after completed treatment for malignant neoplasm (principal); Z85.3 Personal history of malignant neoplasm of breast; E11.9 Type 2 diabetes mellitus without complications; E78.5 Hyperlipidemia, unspecified; K21.9 Gastro-esophageal reflux disease without esophagitis; K58.9 Irritable bowel syndrome, unspecified; J45.20 Mild intermittent asthma, uncomplicated; F41.9 Anxiety disorder, unspecified; Z87.42 Personal history of other diseases of the female genital tract; Z79.4 Long term (current) use of insulin
CPT/HCPCS: 96523; G0463

== ENCOUNTER 2021-09-07 12:11 | Outpatient (RCR) | payer BC, SELFPAY | END 2021-09-10 23:59 | disposition home or self-care (01) | LOC: ONCMED 12:11 | PROVIDERS: PCP Nurse Practitioner; Visit Provider Internal Medicine Medical Oncology | DX: Z45.2 Encounter for adjustment and management of vascular access device (principal) | CPT/HCPCS: 96523 ==

== ENCOUNTER 2021-10-13 12:06 | Outpatient (CLI) | payer BC, SELFPAY ==
[2021-10-13 12:27] VITALS: BP 148/76; PULSE 93; RESP 18; TEMP 35.7; O2SAT 97
[2021-10-13] MEDS: alteplase 1 mg/mL SDV 2 mL 2 MG INTRACATH (12:39)
[2021-10-13 14:57] LABS: Alanine Aminotransferase 26 U/L (0-33); Albumin Level 4.4 g/dL (3.5-5.2); Alkaline Phosphatase 93 IU/L (35-105); Anion Gap 19.2 (5-19); Aspartate Amino Transferase 23 U/L (0-32); Blood Urea Nitrogen 15 mg/dL (6-20); Calcium 9.4 mg/dL (8.5-10.5); Carbon Dioxide 22 mmol/L (22-29); Chloride 97 mmol/L (98-107); Chol HDL Ratio 4.46 mg/dL (0.0-4.40); Cholesterol 156 mg/dL (0-200); Globulin 2.9 g/dL (1.3-4.6); Glomerular Filtration Rate 172.6 mL/min (90-130); Glucose 229 mg/dL (65-115); HDL Cholesterol 35 mg/dL (60-100); LDL Cholesterol Calculated 79 mg/dL (50-129); Osmolality Calculated 286 mOsm/kg (285-295); Potassium 4.2 mmol/L (3.5-5.1); Sodium 134 mmol/L (136-145); Total Bilirubin 0.3 mg/dL (0.15-1.2); Total Protein 7.3 g/dL (6.6-8.7); Triglycerides 208 mg/dL (0-150); VLDL Cholestrol Calculation 42 mg/dL (0-30)
[2021-10-13 15:04] LABS: Estmated Average Glucose 220; Hemoglobin A1C 9.3 % (4.0-6.0)
== END 2021-10-13 12:07 | disposition home or self-care (01) ==
PROVIDERS: PCP Nurse Practitioner; Visit Provider Internal Medicine Medical Oncology
DX: C50.811 Malignant neoplasm of overlapping sites of right female breast (principal); Z17.1 Estrogen receptor negative status [ER-]; E11.65 Type 2 diabetes mellitus with hyperglycemia; Z79.4 Long term (current) use of insulin; Z79.899 Other long term (current) drug therapy
CPT/HCPCS: 36593; 80053; 80061; 83036; 96523; J2997

== ENCOUNTER 2021-11-04 08:35 | Oncology outpatient (recurring) (ONCR) | payer BC, SELFPAY | END 2021-11-10 23:59 | disposition home or self-care (01) | PROVIDERS: PCP Nurse Practitioner; Visit Provider Internal Medicine Medical Oncology | DX: Z45.2 Encounter for adjustment and management of vascular access device (principal) | CPT/HCPCS: 96523 ==

== ENCOUNTER → 2021-11-16 15:08 | Outpatient (BNVA) | payer BC, SELFPAY | PROVIDERS: PCP Nurse Practitioner; Visit Provider Nurse Practitioner | DX: E11.65 Type 2 diabetes mellitus with hyperglycemia (principal); C50.911 Malignant neoplasm of unspecified site of right female breast; Z79.4 Long term (current) use of insulin; C50.912 Malignant neoplasm of unspecified site of left female breast; J30.89 Other allergic rhinitis | CPT/HCPCS: 81000 ==

== ENCOUNTER 2021-12-06 09:22 | Oncology outpatient (recurring) (ONCR) | payer BC, SELFPAY | END 2021-12-11 23:59 | disposition home or self-care (01) | PROVIDERS: PCP Nurse Practitioner; Visit Provider Internal Medicine Medical Oncology | DX: Z45.2 Encounter for adjustment and management of vascular access device (principal) | CPT/HCPCS: 96523 ==

== ENCOUNTER 2022-01-05 16:10 | Oncology outpatient (recurring) (ONCR) | payer BC, SELFPAY | END 2022-01-11 23:59 | disposition home or self-care (01) | PROVIDERS: PCP Nurse Practitioner; Visit Provider Internal Medicine Medical Oncology | DX: Z45.2 Encounter for adjustment and management of vascular access device (principal) | CPT/HCPCS: 96523 ==

== ENCOUNTER 2022-01-31 16:26 | Oncology outpatient (recurring) (ONCR) | payer BC, SELFPAY ==
[2022-01-31 16:32] VITALS: BP 150/92; PULSE 83; RESP 16; TEMP 35.9; O2SAT 98
[2022-02-01 10:52] LABS: Estmated Average Glucose 226; Hemoglobin A1C 9.5 % (4.0-6.0)
== END 2022-02-10 23:59 | disposition home or self-care (01) ==
PROVIDERS: PCP Nurse Practitioner; Visit Provider Internal Medicine Medical Oncology
DX: Z45.2 Encounter for adjustment and management of vascular access device
CPT/HCPCS: 36591; 83036

== ENCOUNTER 2022-03-09 15:31 | Oncology outpatient (recurring) (ONCR) | payer BC, SELFPAY ==
[2022-03-09 15:45] VITALS: BP 124/78; PULSE 78; RESP 18; TEMP 36.6; O2SAT 98
== END 2022-03-13 23:59 | disposition home or self-care (01) ==
PROVIDERS: PCP Nurse Practitioner; Visit Provider Internal Medicine Medical Oncology
DX: Z45.2 Encounter for adjustment and management of vascular access device (principal)
CPT/HCPCS: 96523

== ENCOUNTER 2022-04-04 10:53 | Oncology outpatient (recurring) (ONCR) | payer BC, SELFPAY | END 2022-04-12 23:59 | disposition home or self-care (01) | PROVIDERS: PCP Nurse Practitioner; Visit Provider Internal Medicine Medical Oncology | DX: Z45.2 Encounter for adjustment and management of vascular access device (principal) | CPT/HCPCS: 96523 ==

== ENCOUNTER 2022-05-03 12:38 | Oncology outpatient (recurring) (ONCR) | payer BC, SELFPAY ==
[2022-05-03 14:24] LABS: Chol HDL Ratio 3.43 mg/dL (0.0-4.40); Cholesterol 144 mg/dL (0-200); HDL Cholesterol 42 mg/dL (60-100); LDL Cholesterol Calculated 44 mg/dL (50-129); LDL HDL Ratio 1.05 RATIO (0.00-3.22); Triglycerides 291 mg/dL (0-150)
[2022-05-03 15:01] LABS: Estmated Average Glucose 197; Hemoglobin A1C 8.5 % (4.0-6.0)
== END 2022-05-13 23:59 | disposition home or self-care (01) ==
LOC: ONCMED 12:39
PROVIDERS: Internal Medicine; PCP Nurse Practitioner; Visit Provider Internal Medicine Medical Oncology
DX: Z45.2 Encounter for adjustment and management of vascular access device (principal)
CPT/HCPCS: 36591; 80061; 83036

== ENCOUNTER 2022-05-04 05:44 | Day surgery (SDC) | payer BC, SELFPAY ==
[2022-05-02 08:36] VITALS: BMI 36.6
[2022-05-04 06:06] VITALS: BP 146/85; PULSE 87; RESP 18; TEMP 36.1; O2SAT 98
[2022-05-04 06:10] LABS: OR HCG Qualitative Urine Negative (Negative)
[2022-05-04] MEDS: sodium chloride 0.9% 1,000 ML 30 ML IV (06:12)
--- NOTE | 2022-05-04 06:14 | P.HP_ITS ---
Same Day Surgery H&P Indication for Procedure/HPI DATE OF PROCEDURE: May 04, 2022 CHIEF COMPLAINT/INDICATIONFOR SURGICAL PROCEDURE: Screening colonoscopy PREOP DIAGNOSIS: Screening colonoscopy PLANNED PROCEDURE: Operation Date: 05/04/22 07:00 Proposed Procedures p Colonoscopy 63474,Z12.11(Not Applicable) - Eddi Kc MD This is a pleasant 46 years old female patient referred to my practice for screening colonoscopy as she never had one before. She denies bleeding per rectum or change in bowel habits or change in caliber of stool or history of colon cancer. She is a breast cancer survivor with a current port placed in her right upper chest. ROS All systems have been reviewed negative except as for the above or per problem list. Medications/Allergies* Home Medications Medication Instructions Recorded Confirmed Type acetaminophen 325 mg capsule 325 mg PO Q6H PRN Pain 06/11/20 05/02/22 History cholecalciferol (vitamin D3) 10 10 mcg PO DAILY 06/11/20 05/02/22 History mcg (400 unit) tablet docusate sodium 100 mg capsule 100 mg PO BID PRN Constipation 06/11/20 05/02/22 History (Colace) loperamide 2 mg tablet (Imodium 2 mg PO BID PRN Diarrhea 06/11/20 05/02/22 His tory A-D) Allergies/Adverse Reactions Allergy/AdvReac Type Severity Reaction Status Date / Time IVP Dye Allergy Breathing Uncoded 05/04/22 06:15 issues Current Medications: Generic Name Dose Route Start Last Admin Trade Name Freq PRN Reason Stop Dose Admin Sodium Chloride 1,000 mls @ 30 mls/hr 05/04/22 06:00 05/04/22 06:12 Sodium Chloride 0.9% IV 05/05/22 05:59 30 mls/hr .Q24H DAVION Administration Pertinent History/Comorbid Conditions* Medical History (Updated 03/31/22 @ 11:42 by Misha Duran MD) Acute effusion of both middle ears Anxiety with depression Diabetes mellitus with hyperglycemia, with long-term current use of insulin Environmental and seasonal allergies History of breast cancer History of COVID-2020 with no infusion History of MRSA infection May 17, 2020 Malignant neoplasm of both breasts Obesity, Class II, BMI 35-39.9 Port-A-Cath in place 05/24/2020 right side Surgical History (Updated 06/11/20 @ 10:50 by TIM Mccallum-C) History of lumpectomy of right breast 04/22/2020 History of mastectomy Bilateral 05/05/2020 Family History (Updated 06/11/20 @ 10:13 by Delma Shetty, SRINIVAS) Diabetes Dementia Chronic kidney disease (CKD) Anesthesia complication Cancer Hypertension Denies family history of Clotting disorder Bleeding disorder Lung disease Stroke Social History Smoking and tobacco status: never smoked Second hand smoke exposure: No Smoking risk assessment/counseling performed?: No Alcohol intake: never Desire information about alcohol rehabilitation?: No Counseling given: No Desire information about substance/drug rehabilitation?: No Counseling given: No Adopted: No Caregiver/support person: No Lives independently: Yes Household members: spouse Housing: House Marital status: Number of children: 0 service: No Current occupational status: unemployed Pets and animals: Yes History of recent travel: No Current gender identity: Female Pertinent Exam Findings alert, oriented x 3, clear to auscultation bilaterally (Right upper chest port in place), regular rate & rhythm and procedure specific exam findings (Abdominal exam nontender nondistended soft) Recommendations Surgery/Procedure today (Colonoscopy with possible biopsy) Other Plans: Plan of care; After thorough history and physical examination and reviewing the chart, plan to perform screening colonoscopy. I discussed with the patient in details the risks,benefits,alternatives and indications.The risk of aspiration, bleeding, soft tissue injury, perforation of the colon ,missed lesions and other potential concomitant complications were explained to the patient in details,also the potential need for Laproscoy/Laparotomy to repair any related complications including but not limited to colectomy and or Closotomy.The patient understood this well and did agree to proceed. Rationale was carefully and clearly discussed with the patient.Appropriate informed consent have been reviewed and signed All questions have been answered and all concerns have been addressed to patient's satisfaction. Verbal and written Instructions were given to the patient for colonoscopy prep Coding Level of Care Code Acute Tax Specialist for Carmen Payne
[2022-05-04 06:22] LABS: Glucose Point of Care 236 mg/dL (70-110)
--- NOTE | 2022-05-04 06:55 | P.ANESASSM_ITS ---
Pre-Anesthetic Assessment Height/Weight: Height 1.65 m Weight 99.79 kg Temp Pulse Resp BP Pulse Ox O2 Del Method 97.0 F L 87 18 146/85 98 05/04/22 06:06 05/04/22 06:06 05/04/22 06:06 05/04/22 06:06 05/04/22 06:06 05/04/22 06:06 Preop Diagnosis: Screening colonoscopy Operation Date: 05/04/22 07:00 Proposed Procedures p Colonoscopy 27781,Z12.11(Not Applicable) - Eddi Kc MD Familial anesthetic complications: father has PONV Was Beta Radha taken within 24 hours: N/A Was Clonidine taken within 24 hours: N/A Last intake: Intake Last Liquid Date 05/03/22 Last Liquid Time 22:30 Last Solid Date 05/03/22 Last Solid Time 10:30 Last Intake: 22:30 Social No alcohol and No tobacco Exam alert and oriented x 3 Airway Submandibular: within normal limits Cervical ROM: within normal limits Mallampati: Class II Dentition: full History/ROS No significant history except as noted Pulmonary Asthma CV/HEM None reported None reported Hepatic None reported GI Gastroesophageal Reflux Disease Metabolic None reported breast cancer [facility] [place] None reported Neuropsych None reported Anesthetic Plan ASA status: 3 Anesthesia: Anesthesia Evaluation and MAC Risk of > 500 ml blood loss (7ml/kg in children): No Medications/Allergies Home Medications Medication Instructions Recorded Confirmed Last Taken Type acetaminophen 325 mg capsule 325 mg PO Q6H PRN Pain 06/11/20 05/02/22 Unknown History cholecalciferol (vitamin D3) 10 10 mcg PO DAILY 06/11/20 05/02/22 05/01/22 History mcg (400 unit) tablet docusate sodium 100 mg capsule 100 mg PO BID PRN Constipation 06/11/20 05/04/22 05/03/22 History (Colace) loperamide 2 mg tablet (Imodium 2 mg PO BID PRN Diarrhea 06/11/20 05/02/22 Unknown History A-D) venlafaxine 75 mg capsule,extended 75 mg PO DAILY #30 caps 10/14/20 05/02/22 05/01/22 Rx release 24 hr (Effexor XR) flash glucose sensor (FreeStyle #2 ea 07/04/21 03/31/22 Unknown Rx Norris 2 Sensor kit) pen needle, diabetic 33 gauge x #100 ea 08/23/21 03/31/22 Unknown Rx /32 ketoconazole 2 % topical cream 1 applic topical BID 4 weeks #60 09/26/21 05/02/22 Unknown Rx grams atorvastatin 20 mg tablet (Lipitor) 20 mg PO DAILY #90 tabs 02/07/22 05/02/22 05/01/22 Rx dapagliflozin 5 mg-metformin ER 2 tab PO DAILY 90 days #180 ea 02/07/22 05/02/22 05/01/22 Rx 1,000 mg tablet,extended release 24hr (Xigduo XR) fluticasone propionate 50 2 spray intranasal DAILY #16 grams 02/07/22 05/02/22 04/02/22 Rx mcg/actuation nasal spray,suspension (Flonase Allergy Relief) insulin detemir U-100 100 unit/mL 90 unit (0.9 mL) SUBCUT DAILY #81 02/07/22 05/02/22 05/01/22 Rx (3 mL) subcutaneous pen (Levemir mL FlexTouch U-100 Insulin) insulin lispro 100 unit/mL See Rx Instructions SUBCUT TID #15 02/07/22 05/02/22 05/01/22 Rx subcutaneous pen (Humalog KwikPen mL (U-100) Insulin) loratadine 10 mg tablet (Claritin) 10 mg PO DAILY #90 tabs 02/07/22 05/02/22 05/01/22 Rx montelukast 10 mg tablet 10 mg PO DAILY #90 tabs 02/07/22 05/02/22 05/01/22 Rx (Singulair) semaglutide 2 mg/dose (8 mg/3 mL) 2 mg (0.75 mL) SUBCUT .weekly #3 mL 02/07/22 05/02/22 04/22/22 Rx subcutaneous pen injector (OzInvivodataic) flash glucose scanning reader #1 ea 04/20/22 Unknown Rx (FreeStyle Norris 2 [place]) blood-glucose meter,continuous #1 ea 04/21/22 Unknown Rx (Dexcom G6 Managing [employer] misc) blood-glucose sensor (Dexcom G6 #3 ea 04/21/22 Unknown Rx Sensor device) blood-glucose transmitter (Dexcom #1 ea 04/21/22 Unknown Rx G6 Transmitter device) peg 3350-electrolytes 236 240 ml PO Q10M #4,000 mL 05/02/22 05/02/22 Unknown Rx gram-22.74 gram-6.74 gram-5.86 gram solution (Golytely) Allergies Allergy/AdvReac Type Severity Reaction Status Date / Time IVP Dye Allergy Breathing Uncoded 05/04/22 06:15 issues Current Medications Generic Name Dose Route Start Last Admin Trade Name Freq PRN Reason Stop Dose Admin Sodium Chloride 1,000 mls @ 30 mls/hr 05/04/22 06:00 05/04/22 06:12 Sodium Chloride 0.9% IV 05/05/22 05:59 30 mls/hr .Q24H DAVION Administration PFSH Anesthesia Medical History Acute effusion of both middle ears Anxiety with depression Diabetes mellitus with hyperglycemia, with long-term current use of insulin Environmental and seasonal allergies History of breast cancer History of COVID-2020 with no infusion History of MRSA infection May 17, 2020 Malignant neoplasm of both breasts Obesity, Class II, BMI 35-39.9 Port-A-Cath in place 05/24/2020 right side Surgical History History of lumpectomy of right breast 04/22/2020 History of mastectomy Bilateral 05/05/2020 Family History Other Anesthesia complication Cancer Chronic kidney disease (CKD) Dementia Diabetes Hypertension Denies family history of Clotting disorder Bleeding disorder Lung disease Stroke Social History Smoking and tobacco status: never smoked Second hand smoke exposure: No Smoking risk assessment/counseling performed?: No Alcohol intake: never Desire information about alcohol rehabilitation?: No Counseling given: No Desire information about substance/drug rehabilitation?: No Counseling given: No Adopted: No Caregiver/support person: No Lives independently: Yes Household members: spouse Housing: House Marital status: Number of children: 0 service: No Current occupational status: unemployed Pets and animals: Yes History of recent travel: No Current gender identity: Female Female Reproductive History Date of last menstrual period: 03/26/21 Data Anesthesia Cardiac Studies: Echocardiogram Limited Views 06/30/21 Echocardiogram Ultrasound 07/30/20
[2022-05-04 07:26] VITALS: BP 127/69; PULSE 85; RESP 16; TEMP 36.2; O2SAT 95
[2022-05-04 07:37] VITALS: BP 102/73; PULSE 83; RESP 18; O2SAT 98
--- NOTE | 2022-05-04 08:06 | ANE.PACU2 ---
Inpatient post-anesthesia follow up: Airway intact: Yes Vital signs: Temperature 97.2 F Pulse Rate 83 Respiratory Rate 18 Blood Pressure 102/73 Pulse Oximetry 98 Oxygen Delivery Me thod Room Air Oxygen Flow Rate Fraction of Inspir ed Oxygen Hydration adequate: Yes Nausea and vomiting: No Pain level: 1 Mental status: Baseline
== END 2022-05-04 08:00 | disposition home or self-care (01) ==
PROVIDERS: Family Provider Internal Medicine Medical Oncology; PCP Nurse Practitioner; Visit Provider Surgery
PROC: 0DJD8ZZ Inspection of Lower Intestinal Tract, Via Natural or Artificial Opening Endoscopic (ICD-10-PCS; CPT 45378; principal; 2022-05-04 07:00)
DX: Z12.11 Encounter for screening for malignant neoplasm of colon (principal); Z85.3 Personal history of malignant neoplasm of breast; E11.65 Type 2 diabetes mellitus with hyperglycemia; Z79.4 Long term (current) use of insulin; Z86.16 Personal history of COVID-19; Z86.14 Personal history of Methicillin resistant Staphylococcus aureus infection; E66.9 Obesity, unspecified; Z68.36 Body mass index [BMI] 36.0-36.9, adult
CPT/HCPCS: 36416; 45378; 81025; 82962; 84703; J2704; J7030

== ENCOUNTER 2022-05-09 11:07 | Outpatient (CLI) | payer BC, SELFPAY ==
--- NOTE | 2022-05-09 11:34 | US_ITS ---
WS: [id number] TRANSABDOMINAL PELVIC AND TRANSVAGINAL PELVIC ULTRASOUND HISTORY: C50.911 - Malignant neoplasm of unspecified site of right... COMPARISON: None available. Uterus: 6.6 cm x 4.3 cm x 2.9 cm. Normal size anteverted uterus. No fibroid or mass. Normal junctiona l zone. Endometrium: 0.8 cm. Normal homogeneity. No mass or increased vascularity. Right ovary: 2.9 cm x 3.0 cm x 1.7 cm. Normal size. Normal vascularity. No mass. Left ovary: 2.6 cm x 3.4 cm x 1.5 cm. Normal size. Minimally complex cystic areas probably a corpus l uteum. Difficult to visualize due to its posterior position. Otherwise negative LEFT adnexa. Free fluid: No free fluid. US/US pelvic with transvaginal IMPRESSION: 1. Normal endometrium. 2. No fibroid. 3. LEFT ovary is difficult to visualize due to its posterior position. There i s a small hemorrhagic corpus luteum.
--- NOTE | 2022-05-09 12:15 | USCV_ITS ---
Jyoti Salazar Age: 46 Gender: F : 1975 Exam Date: 05/09/2022 12:09 Ordering Phys: Thiago Scruggs Technologist: [place] [facility] [place]: High risk meds, Assess LV function BP: 130 / 76 HR: 84 Rhythm: Sinus Technical Quality: Fair MEASUREMENTS (Male / Female) Normal Values 2D ECHO LV Diastolic Diameter PLAX 3.1 cm 4.2 - 5.9 / 3.9 - 5.3 cm LV Systolic Diameter PLAX 1.8 cm IVS Diastolic Thickness 1.3 cm 0.6 - 1.0 / 0.6 - 0.9 cm IVS Systolic Thickness 1.6 cm LVPW Diastolic Thickness 1.1 cm 0.6 - 1.0 / 0.6 - 0.9 cm LVPW Systolic Thickness 1.6 cm LVOT Diameter 2.0 cm LV Ejection Fraction 2D Teich 75.7 % LV Ejection Fraction MOD 2C 65.7 % LV Ejection Fraction 2C AL 67.2 % LA Diameter 3.5 cm M-MODE LV Diastolic Diameter MM 4.5 cm 4.2 - 5.9 / 3.9 - 5.3 cm IVS Diastolic Thickness MM 1.1 cm 0.6 - 1.0 / 0.6 - 0.9 cm LVPW Diastolic Thickness MM 1.2 cm 0.6 - 1.0 / 0.6 - 0.9 cm RV Diastolic Diameter MM 1.6 cm Aortic Annulus Diameter 2.8 cm LA Ao Ratio MM 1.5 MV E Point Septal Separation 0.6 cm FINDINGS Left Ventricle Normal left ventricular size, systolic function and wall thickness, with no regional wall motion abnormalities. Left ventricular ejection fraction is estimated at 65 %. Right Ventricle Normal right ventricular size and systolic function. Right Atrium Normal right atrial size. Left Atrium Normal left atrial size. Mitral Valve Structurally normal mitral valve. Mildly thickened mitral valve. Aortic Valve Aortic valve not well visualized. Mildly thickened trileaflet aortic valve. Tricuspid Valve Structurally normal tricuspid valve. Pulmonic Valve Pulmonic valve not well visualized. Pericardium No pericardial effusion. Aorta Normal size aortic root and proximal ascending aorta. IVC Inferior vena cava not visualized. CONCLUSIONS 1. Normal left ventricular size, systolic function and wall thickness, with no regional wall motion abnormalities. Left ventricular ejection fraction is estimated at 65 %. 2. Normal right ventricular size and systolic function. 3. No significant change when compared to study dated 06/30/2021. Dominique Bailon MD (Electronically Signed) Final Date: 10 May 2022 12:49 S
== END 2022-05-09 11:08 | disposition home or self-care (01) ==
PROVIDERS: Family Provider Internal Medicine Medical Oncology; PCP Nurse Practitioner; Visit Provider Nurse Practitioner
DX: C50.911 Malignant neoplasm of unspecified site of right female breast (principal); C50.912 Malignant neoplasm of unspecified site of left female breast; Z79.899 Other long term (current) drug therapy
CPT/HCPCS: 76830; 76856; 93308

== ENCOUNTER 2022-06-22 16:16 | Oncology outpatient (recurring) (ONCR) | payer BC, SELFPAY | END 2022-07-11 23:59 | disposition home or self-care (01) | LOC: ONCMED 16:17 | PROVIDERS: Family Provider Internal Medicine Medical Oncology; PCP Nurse Practitioner; Visit Provider Internal Medicine Medical Oncology | DX: Z45.2 Encounter for adjustment and management of vascular access device (principal) | CPT/HCPCS: 96523 ==

== ENCOUNTER 2022-08-04 08:59 | Oncology outpatient (recurring) (ONCR) | payer BC, SELFPAY ==
[2022-08-04 09:43] LABS: Basophils % 0.2 %; Eosinophils # 0.1 10^3/uL (0.0-0.8); Eosinophils % 0.7 %; Hematocrit 46.9 % (37.0-47.0); Hemoglobin 14.9 g/dL (11.5-15.3); Lymphocytes # 2.9 10^3/uL (0.8-4.8); Lymphocytes % 28.1 %; Mean Corpuscular HGB Conc 31.8 g/dL (30.0-36.0); Mean Platelet Volume 8.8 fL (7.4-10.4); Monocytes # 0.8 10^3/uL (0.2-0.9); Monocytes % 7.6 %; Neutrophils # 6.46 10^3/uL (1.8-7.7); Neutrophils % 62.6 %; Nucleated Red Blood Cells % 0 %; Platelet Count 260 10^3/cmm (130-400); Red Blood Count 5.33 10^6/uL (4.1-5.3); Red Cell Distribution Width 13.4 % (12.1-15.1); White Blood Count 10.3 10^3/uL (4.0-10.0)
[2022-08-04 10:00] LABS: Alanine Aminotransferase 35 U/L (0-33); Albumin Level 4.5 g/dL (3.5-5.2); Alkaline Phosphatase 90 U/L (35-105); Anion Gap 19.3 (5-19); Aspartate Amino Transferase 34 U/L (0-32); Blood Urea Nitrogen 12 mg/dL (6-20); Calcium 8.8 mg/dL (8.5-10.5); Carbon Dioxide 24 mmol/L (22-29); Chloride 104 mmol/L (98-107); Globulin 2.8 g/dL (1.3-4.6); Glomerular Filtration Rate 132.8 mL/min (90-130); Glucose 160 mg/dL (65-115); Osmolality Calculated 299 mOsm/kg (285-295); Potassium 4.3 mmol/L (3.5-5.1); Sodium 143 mmol/L (136-145); Total Bilirubin 0.2 mg/dL (0.15-1.2); Total Protein 7.3 g/dL (6.6-8.7)
== END 2022-08-11 23:59 | disposition home or self-care (01) ==
LOC: ONCMED 08:59
PROVIDERS: Nurse Practitioner Family; PCP Nurse Practitioner; Visit Provider Internal Medicine Medical Oncology
DX: C50.811 Malignant neoplasm of overlapping sites of right female breast (principal); C50.812 Malignant neoplasm of overlapping sites of left female breast; Z17.0 Estrogen receptor positive status [ER+]
CPT/HCPCS: 80053; 85025

== ENCOUNTER 2022-08-31 15:47 | Oncology outpatient (recurring) (ONCR) | payer BC, SELFPAY ==
[2022-08-31 16:05] VITALS: BP 148/93; PULSE 85; RESP 16; TEMP 36.3; O2SAT 98
== END 2022-09-10 23:59 | disposition home or self-care (01) ==
PROVIDERS: PCP Nurse Practitioner; Visit Provider Internal Medicine Medical Oncology
DX: Z45.2 Encounter for adjustment and management of vascular access device (principal)
CPT/HCPCS: 96523

== ENCOUNTER 2022-09-27 11:39 | Oncology outpatient (recurring) (ONCR) | payer BC, SELFPAY ==
[2022-09-27 12:32] VITALS: BP 150/98; PULSE 87; RESP 87; TEMP 36.6; O2SAT 98
[2022-09-27 13:01] LABS: Estmated Average Glucose 192; Hemoglobin A1C 8.3 % (4.0-6.0)
[2022-09-27 13:24] LABS: Creatinine Urine, Random 54 mg/dL (28-217); Microalbum Creatinine Ratio Ur 37 mg/dL (0-20); Microalbumin Random Urine 2 ug/dL (0-20)
[2022-09-27 13:35] LABS: Alanine Aminotransferase 44 U/L (0-33); Albumin Level 4.3 g/dL (3.5-5.2); Alkaline Phosphatase 98 U/L (35-105); Anion Gap 18.2 (5-19); Aspartate Amino Transferase 43 U/L (0-32); Blood Urea Nitrogen 11 mg/dL (6-20); Calcium 9.1 mg/dL (8.5-10.5); Carbon Dioxide 25 mmol/L (22-29); Chloride 97 mmol/L (98-107); Chol HDL Ratio 2.96 mg/dL (0.0-4.40); Cholesterol 133 mg/dL (0-200); Globulin 2.9 g/dL (1.3-4.6); Glomerular Filtration Rate 171.8 mL/min (90-130); Glucose 166 mg/dL (65-115); HDL Cholesterol 45 mg/dL (60-100); LDL Cholesterol Calculated 67 mg/dL (50-129); LDL HDL Ratio 1.49 RATIO (0.00-3.22); Osmolality Calculated 285 mOsm/kg (285-295); Potassium 4.2 mmol/L (3.5-5.1); Sodium 136 mmol/L (136-145); Total Bilirubin 0.2 mg/dL (0.15-1.2); Total Protein 7.2 g/dL (6.6-8.7); Triglycerides 104 mg/dL (0-150)
== END 2022-10-11 23:59 | disposition home or self-care (01) ==
LOC: ONCMED 11:40
PROVIDERS: Internal Medicine; PCP Nurse Practitioner; Visit Provider Internal Medicine Medical Oncology
DX: Z45.2 Encounter for adjustment and management of vascular access device (principal); E78.2 Mixed hyperlipidemia; E11.65 Type 2 diabetes mellitus with hyperglycemia; Z79.4 Long term (current) use of insulin
CPT/HCPCS: 80053; 80061; 82044; 83036; J1642

== ENCOUNTER 2022-11-09 14:57 | Oncology outpatient (recurring) (ONCR) | payer BC, SELFPAY ==
[2022-11-09 15:30] VITALS: BP 126/77; PULSE 94; RESP 18; TEMP 36.1; O2SAT 97
== END 2022-11-10 23:59 | disposition home or self-care (01) ==
PROVIDERS: PCP Nurse Practitioner; Visit Provider Internal Medicine Medical Oncology
DX: Z45.2 Encounter for adjustment and management of vascular access device (principal)
CPT/HCPCS: 96523; J1642

== ENCOUNTER 2022-12-04 08:53 | Oncology outpatient (recurring) (ONCR) | payer BC, SELFPAY ==
[2022-12-04 09:03] VITALS: BP 150/84; PULSE 96; RESP 18; TEMP 35.6; O2SAT 98
== END 2022-12-11 23:59 | disposition home or self-care (01) ==
LOC: ONCMED 08:53
PROVIDERS: PCP Nurse Practitioner; Visit Provider Internal Medicine Medical Oncology
DX: Z45.2 Encounter for adjustment and management of vascular access device (principal)
CPT/HCPCS: 96523; J1642

== ENCOUNTER 2023-02-05 11:15 | Oncology outpatient (recurring) (ONCR) | payer BC, SELFPAY ==
[2023-01-12 08:43] VITALS: BP 131/83; PULSE 89; RESP 16; TEMP 36.4; O2SAT 96
[2023-02-05 09:26] LABS: Alanine Aminotransferase 43 U/L (0-33); Albumin Level 4.4 g/dL (3.5-5.2); Alkaline Phosphatase 87 U/L (35-105); Aspartate Amino Transferase 35 U/L (0-32); Blood Urea Nitrogen 13 mg/dL (6-20); Calcium 8.7 mg/dL (8.5-10.5); Carbon Dioxide 24 mmol/L (22-29); Chloride 102 mmol/L (98-107); Chol HDL Ratio 4.19 mg/dL (0.0-4.40); Cholesterol 218 mg/dL (0-200); Globulin 2.8 g/dL (1.3-4.6); Glomerular Filtration Rate 132.2 mL/min (90-130); Glucose 185 mg/dL (65-115); HDL Cholesterol 52 mg/dL (60-100); LDL Cholesterol Calculated 111 mg/dL (50-129); LDL HDL Ratio 2.13 RATIO (0.00-3.22); Osmolality Calculated 293 mOsm/kg (285-295); Sodium 139 mmol/L (136-145); Total Bilirubin 0.3 mg/dL (0.15-1.2); Total Protein 7.2 g/dL (6.6-8.7); Triglycerides 273 mg/dL (0-150)
[2023-02-05 09:32] LABS: Estmated Average Glucose 177; Hemoglobin A1C 7.8 % (4.0-6.0)
[2023-02-05 09:34] LABS: Creatinine Urine, Random 68 mg/dL (28-217); Microalbum Creatinine Ratio Ur 15 mg/dL (0-20); Microalbumin Random Urine 1 ug/dL (0-20)
[2023-02-05 13:06] LABS: Basophils % 0.2 %; Eosinophils # 0.1 10^3/uL (0.0-0.8); Eosinophils % 0.7 %; Lymphocytes # 2.8 10^3/uL (0.8-4.8); Lymphocytes % 24.8 %; Mean Corpuscular HGB Conc 32.8 g/dL (30-55); Mean Corpuscular Volume 88.5 fl (85-98); Mean Platelet Volume 10.3 fL (7.4-10.4); Monocytes # 0.8 10^3/uL (0.2-0.9); Monocytes % 7.1 %; Neutrophils # 7.33 10^3/uL (1.8-7.7); Neutrophils % 66.2 %; Nucleated Red Blood Cells % 0 %; Platelet Count 293 10^3/cmm (157-399); Red Blood Count 5.31 10^6/uL (3.85-5.65); Red Cell Distribution Width 13.8 % (12.1-15.1); White Blood Count 11.08 10^3/uL (3.29-11.43)
== END 2023-02-10 23:59 | disposition home or self-care (01) ==
PROVIDERS: Internal Medicine; Nurse Practitioner; PCP Nurse Practitioner; Visit Provider Internal Medicine Medical Oncology
DX: C50.912 Malignant neoplasm of unspecified site of left female breast (principal); Z45.2 Encounter for adjustment and management of vascular access device; C50.911 Malignant neoplasm of unspecified site of right female breast; E11.65 Type 2 diabetes mellitus with hyperglycemia; Z79.4 Long term (current) use of insulin
CPT/HCPCS: 36591; 80053; 80061; 82044; 83036; 85025; J1642

== ENCOUNTER 2023-04-03 07:55 | Outpatient (CLI) | payer BC, SELFPAY ==
--- NOTE | 2023-04-03 08:00 | USCV_ITS ---
Jyoti Salazar Age: 47 Gender: F : 1975 Exam Date: 04/03/2023 08:05 Ordering Phys: Brianda Marshall APRN Technologist: Exam Location: [facility] – [place] Indication: high risk cancer meds BP: 140 / 89 HR: 82 Rhythm: Sinus Technical Quality: Adequate MEASUREMENTS (Male / Female) Normal Values 2D ECHO LV Diastolic Diameter PLAX 2.9 cm 4.2 - 5.9 / 3.9 - 5.3 cm LV Systolic Diameter PLAX 1.9 cm IVS Diastolic Thickness 1.4 cm 0.6 - 1.0 / 0.6 - 0.9 cm IVS Systolic Thickness 1.6 cm LVPW Diastolic Thickness 1.3 cm 0.6 - 1.0 / 0.6 - 0.9 cm LVPW Systolic Thickness 1.7 cm LVOT Diameter 2.1 cm LV Ejection Fraction 2D Teich 67.0 % LV Ejection Fraction MOD 2C 63.1 % LV Ejection Fraction 2C AL 63.3 % LA Diameter 3.7 cm M-MODE Aortic Annulus Diameter 2.8 cm LA Ao Ratio MM 1.4 MV E Point Septal Separation 0.7 cm DOPPLER AV Peak Velocity 204.7 cm/s LVOT Peak Velocity 113.0 cm/s AV Area Cont Eq vti 2.1 cm squared AV Area Cont Eq pk 1.8 cm squared MV Area PHT 3.1 cm squared Mitral E to A Ratio 1.0 MV E' Velocity 46.6 cm/s Mitral E to MV E' Ratio 9.0 Mitral E to LV E' Lateral Ratio 7.6 Mitral E to LV E' Septal Ratio 11.2 TR Peak Velocity 151.3 cm/s TR Peak Gradient 9.2 mmHg TV Peak E Velocity 114.0 cm/s Right Atrial Pressure 3.0 mmHg Pulmonary Artery Systolic Pressu 12.2 mmHg RV Acceleration Time 0.2 s FINDINGS Left Ventricle Mild left ventricular hypertrophy. Normal left ventricular size, systolic function and wall thickness, with no regional wall motion abnormalities. Left ventricular ejection fraction is estimated at 65%. Right Ventricle Normal right ventricular size and systolic function. Right Atrium Normal right atrial size. Left Atrium Normal left atrial size. Mitral Valve Structurally normal mitral valve. Trace mitral valve regurgitation. Aortic Valve Structurally normal trileaflet aortic valve. No aortic valve regurgitation. Tricuspid Valve Structurally normal tricuspid valve. Trace tricuspid valve regurgitation. Pulmonic Valve Structurally normal pulmonic valve. Trace pulmonary valve regurgitation. Pericardium No pericardial effusion. Aorta Normal size aortic root and proximal ascending aorta. IVC Normal IVC dimension with >50% respiratory change of the inferior vena cava. CONCLUSIONS 1. Mild left ventricle hypertrophy. Normal LV systolic function. LVEF 65%. 2. No significant valvular abnormality noted. 3. Normal right heart and pulmonary pressures. Terri Bazan MD (Electronically Signed) Final Date: 03 April 2023 09:34 S
--- NOTE | 2023-04-03 08:45 | USR_ITS ---
PROCEDURE INFORMATION: Exam: US Pelvis, Transvaginal Exam date and time: 04/03/2023 8:37 AM Age: 47 years old Clinical indication: Condition or disease; Other: Hemorrhagic corpus luteum; Additional info: Hemorrhagic corpus luteum with history of bilateral breast c TECHNIQUE: Imaging protocol: Real-time transvaginal pelvic ultrasound with image documentation. Transvaginal imaging was used for better evaluation of the endometrium, adnexa, and/or cervix. COMPARISON: US pelv w/transvag [id number] 05/09/2022 11:42 AM FINDINGS: Uterus: Uterus is normal, measuring 6.1 x 3.7 x 3.6 cm. Endometrial stripe is normal, 5 mm in thickness. Right ovary/adnexa: Normal with the right ovary measuring 2.9 x 3.2 x 1.7 cm for a calculated volume of 8 cc. No mass. Normal ovarian blood flow. Left ovary/adnexa: Normal with the left ovary measuring 3.7 x 2.9 x 1.3 cm for a calculated volume of 7 cc. No mass. Normal ovarian blood flow. Intraperitoneal space: No free fluid. US/US transvaginal [id number] IMPRESSION: No acute findings.
--- NOTE | 2023-04-03 09:15 | USR_ITS ---
PROCEDURE INFORMATION: Exam: US Abdomen Complete Exam date and time: 04/03/2023 8:24 AM Age: 47 years old Clinical indication: Abnormal findings; Abnormal lab test; Elevated liver enzymes TECHNIQUE: Imaging protocol: Real-time ultrasound of the abdomen with image documentation. Complete exam. COMPARISON: US abdomen complete* [id number] 01/29/2021 10:08 AM FINDINGS: Liver: Enlarged, measuring 22.8 cm. Diffusely increased parenchymal echogenicity with decreased conspicuity of the portal triads. Contour appears smooth. No mass. Gallbladder: Surgically absent. Biliary ducts: Normal. No stones. No dilation. Visualized common duct measures 2 mm in diameter. Pancreas: Visualized pancreas is unremarkable. Right kidney: Normal. No mass. No hydronephrosis. Measures 13.5 cm in length. Left kidney: Normal. No mass. No hydronephrosis. Measures 14 cm in length. Spleen: Borderline splenomegaly, measuring 13.2 cm in maximal dimension. Aorta: Normal. No aneurysm. Inferior vena cava: Normal. US/US abdomen complete* [id number] IMPRESSION: 1. No acute findings. 2. Hepatomegaly with diffuse steatosis. 3. Borderline splenomegaly.
== END 2023-04-03 07:56 | disposition home or self-care (01) ==
LOC: RAD 07:55
PROVIDERS: PCP Nurse Practitioner; Visit Provider Nurse Practitioner Family
DX: C50.911 Malignant neoplasm of unspecified site of right female breast (principal); C50.912 Malignant neoplasm of unspecified site of left female breast; Z79.899 Other long term (current) drug therapy; I51.7 Cardiomegaly; N83.10 Corpus luteum cyst of ovary, unspecified side; K76.0 Fatty (change of) liver, not elsewhere classified; R16.0 Hepatomegaly, not elsewhere classified
CPT/HCPCS: 76700; 76830; 93306

== ENCOUNTER 2023-04-03 09:30 | Oncology outpatient (recurring) (ONCR) | payer BC, SELFPAY ==
[2023-03-15 16:44] VITALS: BP 143/84; PULSE 91; RESP 18; TEMP 36.1; O2SAT 98
[2023-04-03 09:23] VITALS: BP 112/69; PULSE 85; RESP 16; TEMP 36.8; O2SAT 96
== END 2023-04-12 23:59 | disposition home or self-care (01) ==
PROVIDERS: PCP Nurse Practitioner; Visit Provider Internal Medicine Medical Oncology
DX: Z45.2 Encounter for adjustment and management of vascular access device (principal)
CPT/HCPCS: 96523; J1642

== ENCOUNTER 2023-05-01 16:11 | Oncology outpatient (recurring) (ONCR) | payer BC, SELFPAY ==
[2023-05-01 16:24] VITALS: BP 159/91; PULSE 85; RESP 16; TEMP 36.4; O2SAT 96
[2023-05-01 17:23] LABS: Alanine Aminotransferase 58 U/L (0-33); Albumin Level 4.4 g/dL (3.5-5.2); Alkaline Phosphatase 122 U/L (35-105); Anion Gap 16.7 (5-19); Aspartate Amino Transferase 41 U/L (0-32); Blood Urea Nitrogen 15 mg/dL (6-20); Calcium 9.4 mg/dL (8.5-10.5); Carbon Dioxide 26 mmol/L (22-29); Chloride 99 mmol/L (98-107); Chol HDL Ratio 3.41 mg/dL (0.0-4.40); Cholesterol 150 mg/dL (0-200); Globulin 2.9 g/dL (1.3-4.6); Glomerular Filtration Rate 132.2 mL/min (90-130); Glucose 272 mg/dL (65-115); HDL Cholesterol 44 mg/dL (60-100); LDL Cholesterol Calculated 50 mg/dL (50-129); LDL HDL Ratio 1.14 RATIO (0.00-3.22); Osmolality Calculated 296 mOsm/kg (285-295); Potassium 3.7 mmol/L (3.5-5.1); Sodium 138 mmol/L (136-145); Total Bilirubin 0.2 mg/dL (0.15-1.2); Total Protein 7.3 g/dL (6.6-8.7); Triglycerides 282 mg/dL (0-150)
[2023-05-01 18:33] LABS: Creatinine Urine, Random 45 mg/dL (28-217); Microalbum Creatinine Ratio Ur 22 mg/dL (0-20); Microalbumin Random Urine 1 ug/dL (0-20)
[2023-05-01 19:21] LABS: Estmated Average Glucose 223; Hemoglobin A1C 9.4 % (4.0-6.0)
== END 2023-05-13 23:59 | disposition home or self-care (01) ==
LOC: ONCMED 16:12
PROVIDERS: Internal Medicine; PCP Nurse Practitioner; Visit Provider Internal Medicine Medical Oncology
DX: E11.65 Type 2 diabetes mellitus with hyperglycemia; Z79.4 Long term (current) use of insulin; E78.2 Mixed hyperlipidemia
CPT/HCPCS: 36591; 80053; 80061; 82044; 83036; J1642

== ENCOUNTER 2023-06-06 11:22 | Oncology outpatient (recurring) (ONCR) | payer BC, SELFPAY | END 2023-06-13 23:59 | disposition home or self-care (01) | PROVIDERS: PCP Nurse Practitioner; Visit Provider Internal Medicine Medical Oncology | DX: E11.65 Type 2 diabetes mellitus with hyperglycemia (principal); Z79.4 Long term (current) use of insulin; E78.2 Mixed hyperlipidemia | CPT/HCPCS: 96523; J1642 ==

== ENCOUNTER 2023-07-02 08:18 | Oncology outpatient (recurring) (ONCR) | payer BC, SELFPAY | END 2023-07-12 23:59 | disposition home or self-care (01) | LOC: ONCMED 08:18 | PROVIDERS: PCP Nurse Practitioner; Visit Provider Internal Medicine Medical Oncology | DX: Z45.2 Encounter for adjustment and management of vascular access device | CPT/HCPCS: 96523; J1642 ==

== ENCOUNTER 2023-08-09 11:15 | Oncology outpatient (recurring) (ONCR) | payer BC, SELFPAY ==
[2023-08-09 11:57] LABS: Basophils % 0.2 %; Eosinophils # 0.1 10^3/uL (0.0-0.8); Eosinophils % 1.2 %; Hematocrit 47.7 % (36-47); Lymphocytes # 3.1 10^3/uL (0.8-4.8); Lymphocytes % 25.6 %; Mean Corpuscular HGB Conc 33.8 g/dL (30-55); Mean Corpuscular Hemoglobin 29.2 pg (27-33); Mean Corpuscular Volume 86.6 fl (85-98); Mean Platelet Volume 8.8 fL (7.4-10.4); Monocytes # 0.9 10^3/uL (0.2-0.9); Monocytes % 7.3 %; Neutrophils # 7.85 10^3/uL (1.8-7.7); Neutrophils % 64.8 %; Nucleated Red Blood Cells % 0 %; Platelet Count 267 10^3/cmm (157-399); Red Blood Count 5.51 10^6/uL (3.85-5.65); Red Cell Distribution Width 13.3 % (12.1-15.1); White Blood Count 12.09 10^3/uL (3.29-11.43)
[2023-08-09 12:16] LABS: Alanine Aminotransferase 42 U/L (0-33); Albumin Level 4.4 g/dL (3.5-5.2); Alkaline Phosphatase 82 U/L (35-105); Anion Gap 15.4 (5-19); Aspartate Amino Transferase 32 U/L (0-32); Blood Urea Nitrogen 11 mg/dL (6-20); Calcium 9.2 mg/dL (8.5-10.5); Carbon Dioxide 24 mmol/L (22-29); Chloride 102 mmol/L (98-107); Chol HDL Ratio 4.54 mg/dL (0.0-4.40); Cholesterol 227 mg/dL (0-200); Creatinine Clr Calc Pharmacy 210.9032; Glomerular Filtration Rate 171.1 mL/min (90-130); Glucose 131 mg/dL (65-115); HDL Cholesterol 50 mg/dL (60-100); LDL Cholesterol Calculated 147 mg/dL (50-129); LDL HDL Ratio 2.94 RATIO (0.00-3.22); Osmolality Calculated 285 mOsm/kg (285-295); Potassium 4.4 mmol/L (3.5-5.1); Sodium 137 mmol/L (136-145); Total Bilirubin 0.4 mg/dL (0.15-1.2); Total Protein 7.4 g/dL (6.6-8.7); Triglycerides 151 mg/dL (0-150)
[2023-08-09 12:25] LABS: Estmated Average Glucose 169; Hemoglobin A1C 7.5 % (4.0-6.0)
[2023-08-09 12:28] LABS: Creatinine Urine, Random 71 mg/dL (28-217); Microalbum Creatinine Ratio Ur 14 mg/dL (0-20); Microalbumin Random Urine 1 ug/dL (0-20)
== END 2023-08-12 23:59 | disposition home or self-care (01) ==
PROVIDERS: Internal Medicine; Nurse Practitioner Family; PCP Nurse Practitioner; Visit Provider Internal Medicine Medical Oncology
DX: E11.65 Type 2 diabetes mellitus with hyperglycemia (principal); Z79.4 Long term (current) use of insulin; C50.911 Malignant neoplasm of unspecified site of right female breast; C50.912 Malignant neoplasm of unspecified site of left female breast
CPT/HCPCS: 36591; 80053; 80061; 82044; 83036; 85025

== ENCOUNTER 2023-09-06 06:00 | Oncology outpatient (recurring) (ONCR) | payer BC, SELFPAY | END 2023-09-11 23:59 | disposition home or self-care (01) | LOC: ONCMED 10-23 14:14 | PROVIDERS: PCP Nurse Practitioner; Visit Provider Internal Medicine Medical Oncology | DX: Z45.2 Encounter for adjustment and management of vascular access device (principal) | CPT/HCPCS: 96523 ==

== ENCOUNTER 2023-10-09 09:12 | Oncology outpatient (recurring) (ONCR) | payer BC, SELFPAY | END 2023-10-12 23:59 | disposition home or self-care (01) | PROVIDERS: PCP Nurse Practitioner; Visit Provider Internal Medicine Medical Oncology | DX: Z53.9 Procedure and treatment not carried out, unspecified reason (principal); Z45.2 Encounter for adjustment and management of vascular access device | CPT/HCPCS: 96523 ==

== ENCOUNTER 2023-11-08 09:21 | Oncology outpatient (recurring) (ONCR) | payer BC, SELFPAY ==
[2023-11-08 10:00] LABS: Alanine Aminotransferase 27 U/L (0-33); Albumin Level 4.4 g/dL (3.5-5.2); Alkaline Phosphatase 96 U/L (35-105); Anion Gap 16.3 (5-19); Aspartate Amino Transferase 24 U/L (0-32); Blood Urea Nitrogen 13 mg/dL (6-20); Calcium 9.3 mg/dL (8.5-10.5); Carbon Dioxide 25 mmol/L (22-29); Chloride 101 mmol/L (98-107); Chol HDL Ratio 2.62 mg/dL (0.0-4.40); Cholesterol 139 mg/dL (0-200); Globulin 2.9 g/dL (1.3-4.6); Glomerular Filtration Rate 132.2 mL/min (90-130); Glucose 170 mg/dL (65-115); HDL Cholesterol 53 mg/dL (60-100); LDL Cholesterol Calculated 56 mg/dL (50-129); LDL HDL Ratio 1.06 RATIO (0.00-3.22); Osmolality Calculated 290 mOsm/kg (285-295); Potassium 4.3 mmol/L (3.5-5.1); Sodium 138 mmol/L (136-145); Total Bilirubin 0.3 mg/dL (0.15-1.2); Total Protein 7.3 g/dL (6.6-8.7); Triglycerides 149 mg/dL (0-150)
== END 2023-11-11 23:59 | disposition home or self-care (01) ==
LOC: ONCMED 09:21
PROVIDERS: PCP Nurse Practitioner; Visit Provider Internal Medicine Medical Oncology
DX: E78.2 Mixed hyperlipidemia (principal)
CPT/HCPCS: 36591; 80053; 80061

== ENCOUNTER 2023-12-03 09:29 | Oncology outpatient (recurring) (ONCR) | payer BC, SELFPAY | END 2023-12-12 23:59 | disposition home or self-care (01) | LOC: ONCMED 09:29 | PROVIDERS: PCP Nurse Practitioner; Visit Provider Internal Medicine Medical Oncology | DX: Z45.2 Encounter for adjustment and management of vascular access device (principal) | CPT/HCPCS: 96523 ==

== ENCOUNTER 2024-01-01 08:43 | Oncology outpatient (recurring) (ONCR) | payer BC, SELFPAY ==
[2024-01-01 09:45] LABS: Estmated Average Glucose 183
[2024-01-01 09:49] LABS: Alanine Aminotransferase 44 U/L (0-33); Albumin Level 4.3 g/dL (3.5-5.2); Alkaline Phosphatase 112 U/L (35-105); Anion Gap 16.6 (5-19); Aspartate Amino Transferase 40 U/L (0-32); Blood Urea Nitrogen 12 mg/dL (6-20); Calcium 8.7 mg/dL (8.5-10.5); Carbon Dioxide 24 mmol/L (22-29); Chloride 103 mmol/L (98-107); Chol HDL Ratio 3.68 mg/dL (0.0-4.40); Cholesterol 162 mg/dL (0-200); Globulin 2.8 g/dL (1.3-4.6); Glomerular Filtration Rate 170.4 mL/min (90-130); Glucose 281 mg/dL (65-115); HDL Cholesterol 44 mg/dL (60-100); LDL Cholesterol Calculated 92 mg/dL (50-129); LDL HDL Ratio 2.09 RATIO (0.00-3.22); Osmolality Calculated 298 mOsm/kg (285-295); Potassium 4.6 mmol/L (3.5-5.1); Sodium 139 mmol/L (136-145); Total Bilirubin 0.4 mg/dL (0.15-1.2); Total Protein 7.1 g/dL (6.6-8.7); Triglycerides 128 mg/dL (0-150)
[2024-01-01 09:51] LABS: Creatinine Urine, Random 98 mg/dL (28-217); Microalbumin Random Urine 4 ug/dL (0-20)
[2024-01-01 09:57] LABS: Microalbum Creatinine Ratio Ur 41 mg/dL (0-20)
== END 2024-01-17 09:11 | disposition home or self-care (01) ==
LOC: ONCMED 08:43
PROVIDERS: Internal Medicine; PCP Nurse Practitioner; Visit Provider Internal Medicine Medical Oncology
DX: E11.65 Type 2 diabetes mellitus with hyperglycemia (principal); Z79.4 Long term (current) use of insulin
CPT/HCPCS: 36591; 80053; 80061; 82044; 83036

== ENCOUNTER 2024-02-05 09:13 | Oncology outpatient (recurring) (ONCR) | payer BC, SELFPAY ==
[2024-02-05 10:16] LABS: Basophils % 0.1 %; Eosinophils # 0.2 10^3/uL (0.0-0.8); Eosinophils % 1.4 %; Lymphocytes # 3.1 10^3/uL (0.8-4.8); Lymphocytes % 27.3 %; Mean Corpuscular HGB Conc 33.3 g/dL (30-55); Mean Corpuscular Hemoglobin 29.5 pg (27-33); Mean Corpuscular Volume 88.6 fl (85-98); Mean Platelet Volume 9.2 fL (7.4-10.4); Monocytes # 0.8 10^3/uL (0.2-0.9); Monocytes % 7.3 %; Neutrophils # 7.19 10^3/uL (1.8-7.7); Neutrophils % 63.2 %; Nucleated Red Blood Cells % 0 %; Platelet Count 273 10^3/cmm (157-399); Red Blood Count 5.08 10^6/uL (3.85-5.65); Red Cell Distribution Width 13.7 % (12.1-15.1); White Blood Count 11.38 10^3/uL (3.29-11.43)
[2024-02-05 10:35] LABS: Alanine Aminotransferase 22 U/L (0-33); Albumin Level 4.2 g/dL (3.5-5.2); Alkaline Phosphatase 117 U/L (35-105); Aspartate Amino Transferase 20 U/L (0-32); Blood Urea Nitrogen 17 mg/dL (6-20); Calcium 8.7 mg/dL (8.5-10.5); Carbon Dioxide 23 mmol/L (22-29); Chloride 102 mmol/L (98-107); Globulin 2.5 g/dL (1.3-4.6); Glomerular Filtration Rate 131.7 mL/min (90-130); Glucose 311 mg/dL (65-115); Osmolality Calculated 299 mOsm/kg (285-295); Sodium 138 mmol/L (136-145); Total Bilirubin 0.2 mg/dL (0.15-1.2); Total Protein 6.7 g/dL (6.6-8.7)
[2024-02-05 10:42] LABS: Anion Gap 16.9 (5-19); Potassium 3.9 mmol/L (3.5-5.1)
== END 2024-02-11 23:59 | disposition home or self-care (01) ==
PROVIDERS: Nurse Practitioner Family; PCP Nurse Practitioner; Visit Provider Internal Medicine Medical Oncology
DX: C50.911 Malignant neoplasm of unspecified site of right female breast; C50.912 Malignant neoplasm of unspecified site of left female breast; Z23 Encounter for immunization
CPT/HCPCS: 36591; 80053; 85025; 87400; 87426

== ENCOUNTER 2024-03-07 07:56 | Oncology outpatient (recurring) (ONCR) | payer BC, SELFPAY | END 2024-03-13 23:59 | disposition home or self-care (01) | LOC: ONCMED 07:57 | PROVIDERS: PCP Nurse Practitioner; Visit Provider Internal Medicine Medical Oncology | DX: Z45.2 Encounter for adjustment and management of vascular access device | CPT/HCPCS: 96523 ==

== ENCOUNTER 2024-04-07 07:57 | Oncology outpatient (recurring) (ONCR) | payer BC, SELFPAY | END 2024-04-12 23:59 | disposition home or self-care (01) | PROVIDERS: PCP Nurse Practitioner; Visit Provider Internal Medicine Medical Oncology | DX: Z45.2 Encounter for adjustment and management of vascular access device (principal) | CPT/HCPCS: 96523 ==

== ENCOUNTER 2024-04-09 07:32 | Day surgery (SDC) | payer BC, SELFPAY ==
[2024-04-09 07:48] VITALS: BP 160/84; PULSE 79; RESP 16; TEMP 36.4; O2SAT 98; BMI 40.3
[2024-04-09 07:53] LABS: Glucose Point of Care 116 mg/dL (70-110)
[2024-04-09 07:56] LABS: OR HCG Qualitative Urine Negative (Negative)
[2024-04-09] MEDS: sodium chloride 0.9% 1,000 ML 30 ML IV (08:04)
--- NOTE | 2024-04-09 08:15 | ANES.PREANE2 ---
Pre-Anesthetic Assessment Height/Weight: Height 1.63 m Weight 106.594 kg Temp Pulse Resp BP Pulse Ox O2 Del Method 97.6 F 79 16 160/84 98 Room Air 04/09/24 07:48 04/09/24 07:48 04/09/24 07:48 04/09/24 07:48 04/09/24 07:48 04/09/24 07:48 Operation Date: 04/09/24 09:00 Proposed Procedures p EGD- [id number],G0105,K92.2,K21.9(Not Applicable) - Juanjose Lucas DO s Colonoscopy(Not Applicable) - Juanjose Lucas DO Familial anesthetic complications: None Was Beta Radha taken within 24 hours: N/A Was Clonidine taken within 24 hours: N/A Last intake: Intake Last Liquid Date 04/09/24 Last Liquid Time 02:30 Last Solid Date 04/07/24 Last Solid Time 09:00 Social No alcohol and No tobacco Exam alert, oriented x 3, clear to auscultation bilaterally and regular rate & rhythm Airway Mallampati: Class III Dentition: other (capped tooth) Pulmonary Asthma (mild) CV/HEM Hypertension murmur since high school, no functional limitations on activity, able to achieve > 4 METS w/ no symptoms Hepatic fatty liver GI Gastroesophageal Reflux Disease Metabolic Diabetes Mellitus and Morbid Obesity Anesthetic Plan ASA status: 3 Anesthesia: MAC Risk of > 500 ml blood loss (7ml/kg in children): No Medications/Allergies Home Medications Medication Instructions Recorded Confirmed Last Taken Type cholecalciferol (vitamin D3) 10 10 mcg PO DAILY 06/11/20 04/09/24 04/06/24 History mcg (400 unit) tablet blood-glucose meter,continuous #1 ea 04/21/22 04/09/24 04/06/24 Rx (Dexcom G6 [employer] 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) saw palmetto 160 mg capsule 160 mg PO DAILY 08/04/22 04/09/24 04/06/24 History milk thistle 175 mg tablet 175 mg PO DAILY 02/05/23 04/09/24 04/06/24 History fluticasone propionate 50 2 spray intranasal DAILY PRN 05/03/23 04/09/24 Unknown Rx mcg/actuation nasal allergy symptoms #16 grams spray,suspension (Flonase Allergy Relief) pen needle, diabetic 33 gauge x #100 ea 1204/09/24 04/06/24 Rx blood-glucose transmitter (Dexcom #1 ea 10/09/23 04/09/24 04/06/24 Rx G6 Transmitter device) blood-glucose sensor (Dexcom G6 #9 ea 11/26/23 04/09/24 04/06/24 Rx Sensor device) pantoprazole 40 mg tablet,delayed 40 mg PO BID 6 weeks #84 tabs 01/28/24 04/09/24 04/06/24 Rx release (Protonix) blood-glucose meter (Accu-Chek #1 ea 02/05/24 04/09/24 04/06/24 Rx Guide Glucose Meter) lancing device with lancets kit #1 ea 02/05/24 04/09/24 04/06/24 Rx (Accu-Chek Softclix Lancing Device+Lancets kit) XIGDUO XR 5-1000MG TAB 2 tab PO DAILY 04/07/24 04/09/24 04/06/24 History atorvastatin 20 mg tablet (Lipitor) 20 mg PO DAILY #90 tabs 04/07/24 04/09/24 04/07/24 Rx blood sugar diagnostic (Accu-Chek #100 ea 04/07/24 04/09/24 Unknown Rx Guide test strips) insulin lispro 100 unit/mL See Rx Instructions .Route .COMPLEX 04/07/24 04/09/24 04/06/24 History subcutaneous cartridge (Humalog U-100 Insulin) loratadine 10 mg tablet (Claritin) 10 mg PO DAILY #90 tabs 04/07/24 04/09/24 04/07/24 Rx montelukast 10 mg tablet 10 mg PO DAILY #90 tabs 04/07/24 04/09/24 04/07/24 Rx (Singulair) naltrexone 50 mg tablet 50 mg PO DAILY #30 tabs 04/07/24 04/09/24 Unknown Rx semaglutide 1 mg/dose (4 mg/3 mL) 1 mg SUBCUT .WEEKLY 04/07/24 04/09/24 03/29/24 History subcutaneous pen injector (Ozempic) trazodone 50 mg tablet 50 mg PO .at bedtime #30 tabs 04/07/24 04/09/24 04/07/24 Rx valsartan 40 mg tablet (Diovan) 40 mg PO DAILY #90 tabs 04/07/24 04/09/24 04/07/24 Rx venlafaxine 75 mg capsule,extended 75 mg PO DAILY #90 caps 04/07/24 04/09/24 04/07/24 Rx release 24 hr (Effexor XR) Allergies Allergy/AdvReac Type Severity Reaction Status Date / Time IVP Dye Allergy Breathing Uncoded 04/07/24 16:10 issues Current Medications Generic Name Dose Route Start Last Admin Trade Name Mago PRN Reason Stop Dose Admin Sodium Chloride 1,000 mls @ 30 mls/hr 04/09/24 07:45 04/09/24 08:04 Sodium Chloride 0.9% IV 04/10/24 07:44 30 mls/hr .Q24H DAVION Administration PFSH Anesthesia Medical History Hemorrhage of corpus luteum cyst Fatty liver US 04/03/2023 Hypertriglyceridemia Acute effusion of both middle ears History of COVID-19 2020 with no infusion Obesity, Class II, BMI 35-39.9 Anxiety with depression Environmental and seasonal allergies Malignant neoplasm of both breasts Port-A-Cath in place 05/24/2020 right side Diabetes mellitus with hyperglycemia, with long-term current use of insulin History of breast cancer History of MRSA infection May 17, 2020 Surgical History History of lumpectomy of right breast 04/22/2020 History of mastectomy Bilateral 05/05/2020 Family History Other Anesthesia complication Cancer Chronic kidney disease (CKD) Dementia Diabetes Hypertension Denies family history of Clotting disorder Bleeding disorder Lung disease Stroke Social History Smoking and tobacco/nicotine status: never used tobacco/nicotine Second hand smoke exposure: Yes Alcohol intake: never Substance/Drug Use: never Adopted: No Caregiver/support person: No Lives independently: Yes Household members: spouse Housing: House Marital status: Number of children: 0 service: No Current occupational status: unemployed Pets and animals: Yes Do you think of yourself as: Straight/Heterosexual Current gender identity: Female Data Anesthesia Cardiac Studies: Echocardiogram 04/03/23 Echocardiogram Limited Views 05/09/22 Echocardiogram Ultrasound 07/30/20
--- NOTE | 2024-04-09 09:07 | PM.HP ---
Providers/Chief Complaint Primary Care Provider: ALFONZO Mccallum Chief Complaint: K92.2 History of Present Illness Jyoti Salazar is a 48 year old female Review of Systems General: Reports: 10 or more systems reviewed and unremarkable except in HPI and below Medications/Allergies Home Medications Medication Instructions Recorded Confirmed Last Taken Type cholecalciferol (vitamin D3) 10 10 mcg PO DAILY 06/11/20 04/09/24 04/06/24 History mcg (400 unit) tablet blood-glucose meter,continuous #1 ea 04/21/22 04/09/24 04/06/24 Rx (Dexcom G6 [employer] Dec[employer]ator) saw palmetto 160 mg capsule 160 mg PO DAILY 08/04/22 04/09/24 04/06/24 History milk thistle 175 mg tablet 175 mg PO DAILY 02/05/23 04/09/24 04/06/24 History fluticasone propionate 50 2 spray intranasal DAILY PRN 05/03/23 04/09/24 Unknown Rx mcg/actuation nasal allergy symptoms #16 grams spray,suspension (Flonase Allergy Relief) pen needle, diabetic 33 gauge x #100 ea 05/03/23 04/09/24 04/06/24 Rx blood-glucose transmitter (Dexcom #1 ea 10/09/23 04/09/24 04/06/24 Rx G6 Transmitter device) blood-glucose sensor (Dexcom G6 #9 ea 11/26/23 04/09/24 04/06/24 Rx Sensor device) pantoprazole 40 mg tablet,delayed 40 mg PO BID 6 weeks #84 tabs 01/28/24 04/09/24 04/06/24 Rx release (Protonix) blood-glucose meter (Accu-Chek #1 ea 02/05/24 04/09/24 04/06/24 Rx Guide Glucose Meter) lancing device with lancets kit #1 ea 02/05/24 04/09/24 04/06/24 Rx (Accu-Chek Softclix Lancing Device+Lancets kit) XIGDUO XR 5-1000MG TAB 2 tab PO DAILY 04/07/24 04/09/24 04/06/24 History atorvastatin 20 mg tablet (Lipitor) 20 mg PO DAILY #90 tabs 04/07/24 04/09/24 04/07/24 Rx blood sugar diagnostic (Accu-Chek #100 ea 04/07/24 04/09/24 Unknown Rx Guide test strips) insulin lispro 100 unit/mL See Rx Instructions .Route .COMPLEX 04/07/24 04/09/24 04/06/24 History subcutaneous cartridge (Humalog U-100 Insulin) loratadine 10 mg tablet (Claritin) 10 mg PO DAILY #90 tabs 04/07/24 04/09/24 04/07/24 Rx montelukast 10 mg tablet 10 mg PO DAILY #90 tabs 04/07/24 04/09/24 04/07/24 Rx (Singulair) naltrexone 50 mg tablet 50 mg PO DAILY #30 tabs 04/07/24 04/09/24 Unknown Rx semaglutide 1 mg/dose (4 mg/3 mL) 1 mg SUBCUT .WEEKLY 04/07/24 04/09/24 03/29/24 History subcutaneous pen injector (Ozempic) trazodone 50 mg tablet 50 mg PO .at bedtime #30 tabs 04/07/24 04/09/24 04/07/24 Rx valsartan 40 mg tablet (Diovan) 40 mg PO DAILY #90 tabs 04/07/24 04/09/24 04/07/24 Rx venlafaxine 75 mg capsule,extended 75 mg PO DAILY #90 caps 04/07/24 04/09/24 04/07/24 Rx release 24 hr (Effexor XR) Allergies Allergy/AdvReac Type Severity Reaction Status Date / Time IVP Dye Allergy Breathing Uncoded 04/07/24 16:10 issues PFSH Acute PFSH: Medical History Hemorrhage of corpus luteum cyst Fatty liver US 04/03/2023 Hypertriglyceridemia Acute effusion of both middle ears History of COVID-19 2020 with no infusion Obesity, Class II, BMI 35-39.9 Anxiety with depression Environmental and seasonal allergies Malignant neoplasm of both breasts Port-A-Cath in place 05/24/2020 right side Diabetes mellitus with hyperglycemia, with long-term current use of insulin History of breast cancer History of MRSA infection May 17, 2020 Surgical History History of lumpectomy of right breast 04/22/2020 History of mastectomy Bilateral 05/05/2020 Family History Other Anesthesia complication Cancer Chronic kidney disease (CKD) Dementia Diabetes Hypertension Denies family history of Clotting disorder Bleeding disorder Lung disease Stroke Social History Smoking and tobacco/nicotine status: never used tobacco/nicotine Second hand smoke exposure: Yes Alcohol intake: never Substance/Drug Use: never Adopted: No Caregiver/support person: No Lives independently: Yes Household members: spouse Housing: House Marital status: Number of children: 0 service: No Current occupational status: unemployed Pets and animals: Yes Do you think of yourself as: Straight/Heterosexual Current gender identity: Female Vitals/I&O/Wt Last Vital Signs Temp 97.6 F 04/09/24 07:48 Pulse 79 04/09/24 07:48 Resp 16 04/09/24 07:48 BP 160/84 04/09/24 07:48 Pulse Ox 98 04/09/24 07:48 O2 Del Method Room Air 04/09/24 07:48 Weight last 48 hrs Weight 235 lb A&P Assessment and plan (1) GI bleed: (2) GERD (gastroesophageal reflux disease): (3) Colon cancer screening: Plan EGD and colonoscopy Attestations Medical Necessity Statement*: Home Coding Level of Care Code Acute Code for [facility] Fwd Diagnoses GI bleed K92.2 GERD (gastroesophageal reflux disease) K21.9 Colon cancer screening Z12.11
[2024-04-09 09:29] VITALS: BP 115/66; PULSE 73; RESP 17; TEMP 36.1; O2SAT 98
[2024-04-09 09:51] VITALS: BP 121/60; PULSE 69; RESP 18; O2SAT 97
--- NOTE | 2024-04-09 09:55 | ANE.PACU2 ---
Inpatient post-anesthesia follow up: Airway intact: Yes Vital signs: Temperature 97.0 F Pulse Rate 69 Respiratory Rate 18 Blood Pressure 121/60 Pulse Oximetry 97 Oxygen Delivery Me thod Room Air Oxygen Flow Rate Fraction of Inspir ed Oxygen Hydration adequate: Yes Nausea and vomiting: No Pain level: 1 Mental status: Baseline
== END 2024-04-09 09:58 | disposition home or self-care (01) ==
PROVIDERS: Anesthesiology; PCP Nurse Practitioner; Visit Provider Surgery
PROC: 0DJ08ZZ Inspection of Upper Intestinal Tract, Via Natural or Artificial Opening Endoscopic (ICD-10-PCS; CPT 43235; principal; 2024-04-09 09:00)
PROC: 0DJD8ZZ Inspection of Lower Intestinal Tract, Via Natural or Artificial Opening Endoscopic (ICD-10-PCS; CPT 45378; 2024-04-09 09:00)
DX: K92.2 Gastrointestinal hemorrhage, unspecified (principal); K21.9 Gastro-esophageal reflux disease without esophagitis; Z79.4 Long term (current) use of insulin; E11.65 Type 2 diabetes mellitus with hyperglycemia; Z85.3 Personal history of malignant neoplasm of breast; Z86.14 Personal history of Methicillin resistant Staphylococcus aureus infection; J45.909 Unspecified asthma, uncomplicated; E66.01 Morbid (severe) obesity due to excess calories; Z68.41 Body mass index [BMI] 40.0-44.9, adult
CPT/HCPCS: 36416; 43239; 45378; 81025; 82962; 88305; J2704; J7030

== ENCOUNTER 2024-04-09 10:00 | Outpatient (CLI) | payer BC, SELFPAY ==
--- NOTE | 2024-04-09 10:02 | XRR_ITS ---
PROCEDURE INFORMATION: Exam: XR Right Foot Exam date and time: 04/09/2024 10:05 AM Age: 48 years old Clinical indication: Right; Patient HX: Pain x6 weeks, starts in middle of foot and radiates to edges of foot, worse when walking. HX of breast cancer; Additional info: M79.671 - pain in right foot TECHNIQUE: Imaging protocol: Radiologic exam of the right foot. Views: 3 or more views. COMPARISON: No relevant prior studies available. FINDINGS: Bones/joints: Mild degenerative changes at the 1st MTP joint. No fracture or dislocation. Moderate plantar spurring. Soft tissues: Normal. XR/XR foot RT min 3V* [id number] IMPRESSION: Findings are normal. The
== END 2024-04-09 10:01 | disposition home or self-care (01) ==
PROVIDERS: PCP Nurse Practitioner; Visit Provider Nurse Practitioner
DX: M77.31 Calcaneal spur, right foot (principal); M79.671 Pain in right foot
CPT/HCPCS: 73630

== ENCOUNTER → 2024-04-22 07:58 | Outpatient (BNVA) | payer BC, SELFPAY | PROVIDERS: PCP Nurse Practitioner; Visit Provider Podiatrist Foot & Ankle Surgery | DX: M79.671 Pain in right foot (principal); M72.2 Plantar fascial fibromatosis | CPT/HCPCS: 73630 ==

== ENCOUNTER 2024-04-22 10:31 | Outpatient (CLI) | payer BC, SELFPAY | END 2024-04-22 10:32 | disposition home or self-care (01) | LOC: SPT 10:32 | PROVIDERS: PCP Nurse Practitioner; Visit Provider Podiatrist Foot & Ankle Surgery | DX: Z46.89 Encounter for fitting and adjustment of other specified devices (principal); M72.2 Plantar fascial fibromatosis | CPT/HCPCS: L4397 ==

== ENCOUNTER 2024-05-13 10:45 | Oncology outpatient (recurring) (ONCR) | payer BC, SELFPAY ==
--- NOTE | 2024-05-05 09:30 | US_ITS ---
WS: [id number] Complete ABDOMINAL ULTRASOUND HISTORY: followup exam COMPARISON: None available. Liver: 24.1 cm in length. Markedly enlarged liver is very heterogeneous and coarse. The entire liver is not very well visualized. Liver has increased slightly in size and hepatic steatosis since the heike or study of 04/03/2023. Portal Vein: Normal hepatopetal flow with monophasic waveform. Gallbladder: Prior cholecystectomy. CBD: 0.4 cm Pancreas: Normal size and echogenicity. Right kidney: 11.8 cm x 6.3 x 6.0 cm. Cortex:1.2 cm. Normal size and echogenicity. No hydronephrosis or mass. Left kidney: 12.5 cm x 7.7 cm x 6.5 cm. Cortex: 1.1 cm. Normal size and echogenicity. No hydronephrosis or mass. Spleen: 12.5 cm. Normal size and echogenicity. Aorta and IVC: Unremarkable abdominal aorta and IVC. US/US abdomen complete* [id number] Impression: 1. Moderate hepatic steatosis and hepatomegaly with mild progression since . 2. Prior cholecystectomy. 3. No renal obstruction.
--- NOTE | 2024-05-05 10:15 | US_ITS ---
WS: [id number] US transvaginal [id number] HISTORY: Follow-up 04/03/2023. COMPARISON: 04/03/2023, 05/09/2022 Uterus: 7.1 cm x 3.4 cm x 3.3 cm. Normal size anteverted uterus. No fibroid or mass. Endometrium: 0.4 cm. Normal. Right ovary: 2.7 cm x 2.2 cm x 2.3 cm. Normal size and vascularity, no cystic or solid masses. Left ovary: 3.7 cm x 2.2 cm x 2.4 cm. Normal size and vascularity, no cystic or solid masses. No free fluid in the cul-de-sac. US/US transvaginal [id number] IMPRESSION: 1. No interval change in appearance of the uterus or endometrium. 2. Both ovaries are identified. RIGHT ovary is very slightly enlarged but jose armando lar to the prior study. No suspicious mass identified.
--- NOTE | 2024-05-05 11:15 | USCV_ITS ---
Jyoti Salazar Age: 48 Gender: F : 1975 Exam Date: 05/05/2024 09:48 Ordering Phys: Lexi Blackman NP Technologist: CT Exam Location: [facility] [place] Indication: BP: 120 / 68 HR: 66 Rhythm: Sinus Technical Quality: Adequate MEASUREMENTS (Male / Female) Normal Values 2D ECHO LVOT Diameter 2.0 cm LV Ejection Fraction MOD 4C 61.3 % LV Ejection Fraction MOD 2C 61.8 % LV Ejection Fraction 2C AL 60.4 % LA Diameter 4.1 cm RA Systolic Volume 4C AL 42.9 ml RA Systolic Volume 4C MOD 41.3 ml LA Sys Volume AL 64.3 cm cubed LA Sys Volume Index AL 27.8 cm cubed/m squared Aorta at Sinotubular Diameter 2.0 cm M-MODE LA Ao Ratio MM 1.5 AV Cusp Separation MM 1.6 cm DOPPLER AV Peak Velocity 192.0 cm/s LVOT Peak Velocity 111.0 cm/s AV Area Cont Eq vti 1.8 cm squared AV Area Cont Eq pk 1.9 cm squared MV Peak Velocity 120.0 cm/s MV Area PHT 3.8 cm squared Mitral E to A Ratio 1.4 TR Peak Velocity 222.5 cm/s TR Peak Gradient 19.8 mmHg TR Mean Velocity 162.0 cm/s TR Mean Gradient 11.9 mmHg TR Velocity Time Integral 64.3 cm TV Peak E Velocity 82.0 cm/s PV Peak Velocity 117.0 cm/s FINDINGS Left Ventricle Normal left ventricular size and systolic function, EF 61.5% .no regional wall motion abnormalities. Mild left ventricular hypertrophy. No regional wall motion abnormalities. Grade III/IV diastolic dysfunction (restrictive filling pattern), severely elevated filling pressures. Right Ventricle The right ventricle is normal in size and function. Right Atrium The right atrium is normal in size. Left Atrium Mildly increased left atrial size. Mitral Valve No gross abnormalities noted Aortic Valve The peak velocity across the aortic valve was 2.1 m/s. Aortic valve area was calculated to be 1.87 cm squared Mild aortic valve stenosis, mean gradient 8.6 mmHg, ADRYAN 1.8 cm squared. Tricuspid Valve No gross abnormalities noted Pulmonic Valve Pulmonic valve not well visualized. Pericardium No pericardial effusion. Aorta Normal aortic annulus size. IVC The inferior vena cava appears normal. CONCLUSIONS Normal left ventricular size and systolic function, EF 61.5% .no regional wall motion abnormalities. Mild left ventricular hypertrophy. No regional wall motion abnormalities. Grade III/IV diastolic dysfunction (restrictive filling pattern), severely elevated filling pressures. Mild aortic valve stenosis, mean gradient 8.6 mmHg, ADRYAN 1.8 cm squared. Mildly increased left atrial size. There is no pericardial effusion. Compared to the study from 04/03/2023, there may not be a significant change Dr Molly Ferreira MD [facility] (Electronically Signed) Final Date: 05 May 2024 20:52 S
[2024-05-13 12:05] LABS: Estmated Average Glucose 220; Hemoglobin A1C 9.3 % (4.0-6.0)
[2024-05-13 12:14] LABS: Alanine Aminotransferase 52 U/L (0-33); Albumin Level 4.2 g/dL (3.5-5.2); Alkaline Phosphatase 88 U/L (35-105); Anion Gap 18.2 (5-19); Aspartate Amino Transferase 64 U/L (0-32); Blood Urea Nitrogen 11 mg/dL (6-20); Carbon Dioxide 25 mmol/L (22-29); Chloride 99 mmol/L (98-107); Chol HDL Ratio 2.86 mg/dL (0.0-4.40); Cholesterol 160 mg/dL (0-200); Globulin 2.7 g/dL (1.3-4.6); Glomerular Filtration Rate 170.4 mL/min (90-130); Glucose 201 mg/dL (65-115); HDL Cholesterol 56 mg/dL (60-100); LDL Cholesterol Calculated 81 mg/dL (50-129); LDL HDL Ratio 1.45 RATIO (0.00-3.22); Osmolality Calculated 291 mOsm/kg (285-295); Potassium 4.2 mmol/L (3.5-5.1); Sodium 138 mmol/L (136-145); Total Bilirubin 0.3 mg/dL (0.15-1.2); Total Protein 6.9 g/dL (6.6-8.7); Triglycerides 114 mg/dL (0-150)
[2024-05-13 12:22] LABS: Creatinine Urine, Random 115 mg/dL (28-217); Microalbumin Random Urine 7 ug/dL (0-20)
[2024-05-13 12:34] LABS: Microalbum Creatinine Ratio Ur 61 mg/dL (0-20)
== END 2024-05-13 23:59 | disposition home or self-care (01) ==
PROVIDERS: Internal Medicine; PCP Nurse Practitioner; Visit Provider Nurse Practitioner
DX: E11.65 Type 2 diabetes mellitus with hyperglycemia; Z79.4 Long term (current) use of insulin; E78.2 Mixed hyperlipidemia
CPT/HCPCS: 36415; 36591; 76700; 76830; 80053; 80061; 82044; 83036; 93306; 96523

== ENCOUNTER 2024-06-02 08:09 | Oncology outpatient (recurring) (ONCR) | payer BC, SELFPAY | END 2024-06-13 23:59 | disposition home or self-care (01) | LOC: ONCMED 08:09 | PROVIDERS: PCP Nurse Practitioner; Visit Provider Nurse Practitioner | DX: Z45.2 Encounter for adjustment and management of vascular access device (principal) | CPT/HCPCS: 96523 ==

== ENCOUNTER 2024-07-07 16:03 | Oncology outpatient (recurring) (ONCR) | payer BC, SELFPAY ==
[2024-07-07 17:10] LABS: Estmated Average Glucose 212
[2024-07-07 17:16] LABS: Alanine Aminotransferase 40 U/L (0-33); Albumin Level 4.3 g/dL (3.5-5.2); Alkaline Phosphatase 105 U/L (35-105); Anion Gap 15.1 (5-19); Aspartate Amino Transferase 46 U/L (0-32); Blood Urea Nitrogen 11 mg/dL (6-20); Carbon Dioxide 26 mmol/L (22-29); Chloride 101 mmol/L (98-107); Chol HDL Ratio 4.09 mg/dL (0.0-4.40); Cholesterol 180 mg/dL (0-200); Globulin 2.7 g/dL (1.3-4.6); Glomerular Filtration Rate 170.4 mL/min (90-130); Glucose 247 mg/dL (65-115); HDL Cholesterol 44 mg/dL (60-100); LDL Cholesterol Calculated 96 mg/dL (50-129); LDL HDL Ratio 2.18 RATIO (0.00-3.22); Osmolality Calculated 294 mOsm/kg (285-295); Potassium 4.1 mmol/L (3.5-5.1); Sodium 138 mmol/L (136-145); Thyroid Stimulating Hormone 1.57 uIU/mL (0.27-4.20); Total Bilirubin 0.2 mg/dL (0.15-1.2); Triglycerides 202 mg/dL (0-150); VLDL Cholestrol Calculation 40 mg/dL (0-30)
[2024-07-07 17:24] LABS: Creatinine Urine, Random 102 mg/dL (28-217); Microalbumin Random Urine 6 ug/dL (0-20)
[2024-07-07 17:26] LABS: Microalbum Creatinine Ratio Ur 59 mg/dL (0-20)
== END 2024-07-11 23:59 | disposition home or self-care (01) ==
LOC: ONCMED 16:03
PROVIDERS: Internal Medicine; PCP Nurse Practitioner; Visit Provider Nurse Practitioner
DX: E11.65 Type 2 diabetes mellitus with hyperglycemia (principal); Z79.4 Long term (current) use of insulin; F41.8 Other specified anxiety disorders; E78.2 Mixed hyperlipidemia
CPT/HCPCS: 36591; 80053; 80061; 82044; 83036; 84443

== ENCOUNTER 2024-08-07 09:11 | Oncology outpatient (recurring) (ONCR) | payer BC, SELFPAY ==
[2024-07-30 16:59] LABS: Basophils % 0.2 %; Eosinophils # 0.2 10^3/uL (0.0-0.8); Eosinophils % 1.2 %; Lymphocytes # 3.8 10^3/uL (0.8-4.8); Lymphocytes % 29.4 %; Mean Corpuscular HGB Conc 32.8 g/dL (30-55); Mean Corpuscular Hemoglobin 29.4 pg (27-33); Mean Corpuscular Volume 89.7 fl (85-98); Mean Platelet Volume 8.9 fL (7.4-10.4); Monocytes # 0.9 10^3/uL (0.2-0.9); Monocytes % 6.6 %; Neutrophils % 61.6 %; Nucleated Red Blood Cells % 0 %; Platelet Count 249 10^3/cmm (157-399); Red Blood Count 4.46 10^6/uL (3.85-5.65); Red Cell Distribution Width 13.1 % (12.1-15.1); White Blood Count 12.83 10^3/uL (3.29-11.43)
[2024-07-30 17:30] LABS: Alanine Aminotransferase 33 U/L (0-33); Albumin Level 4.2 g/dL (3.5-5.2); Alkaline Phosphatase 96 U/L (35-105); Anion Gap 17.9 (5-19); Aspartate Amino Transferase 29 U/L (0-32); Blood Urea Nitrogen 17 mg/dL (6-20); Calcium 8.7 mg/dL (8.5-10.5); Carbon Dioxide 25 mmol/L (22-29); Chloride 101 mmol/L (98-107); Globulin 2.5 g/dL (1.3-4.6); Glomerular Filtration Rate 106.7 mL/min (90-130); Glucose 133 mg/dL (65-115); Osmolality Calculated 293 mOsm/kg (285-295); Potassium 3.9 mmol/L (3.5-5.1); Sodium 140 mmol/L (136-145); Total Bilirubin 0.2 mg/dL (0.15-1.2); Total Protein 6.7 g/dL (6.6-8.7)
== END 2024-08-11 23:59 | disposition home or self-care (01) ==
PROVIDERS: Nurse Practitioner; PCP Nurse Practitioner; Visit Provider Internal Medicine
DX: Z53.9 Procedure and treatment not carried out, unspecified reason (principal)
CPT/HCPCS: 36591; 80053; 85025

== ENCOUNTER 2024-09-01 07:48 | Oncology outpatient (recurring) (ONCR) | payer BC, SELFPAY | END 2024-09-10 23:59 | disposition home or self-care (01) | PROVIDERS: PCP Nurse Practitioner; Visit Provider Internal Medicine Medical Oncology | DX: Z45.2 Encounter for adjustment and management of vascular access device (principal) | CPT/HCPCS: 96523 ==

== ENCOUNTER 2024-11-03 08:51 | Oncology outpatient (recurring) (ONCR) | payer BC, SELFPAY ==
[2024-11-03 09:27] LABS: Estmated Average Glucose 180; Hemoglobin A1C 7.9 % (4.0-6.0)
[2024-11-03 09:29] LABS: Alanine Aminotransferase 35 U/L (0-33); Albumin Level 4.2 g/dL (3.5-5.2); Alkaline Phosphatase 96 U/L (35-105); Anion Gap 19.3 (5-19); Aspartate Amino Transferase 27 U/L (0-32); Blood Urea Nitrogen 11 mg/dL (6-20); Calcium 8.7 mg/dL (8.5-10.5); Carbon Dioxide 22 mmol/L (22-29); Chloride 102 mmol/L (98-107); Cholesterol 138 mg/dL (0-200); Globulin 2.9 g/dL (1.3-4.6); Glomerular Filtration Rate 170.4 mL/min (90-130); Glucose 112 mg/dL (65-115); HDL Cholesterol 46 mg/dL (60-100); LDL Cholesterol Calculated 74 mg/dL (50-129); LDL HDL Ratio 1.61 RATIO (0.00-3.22); Osmolality Calculated 288 mOsm/kg (285-295); Potassium 4.3 mmol/L (3.5-5.1); Sodium 139 mmol/L (136-145); Total Bilirubin 0.3 mg/dL (0.15-1.2); Total Protein 7.1 g/dL (6.6-8.7); Triglycerides 89 mg/dL (0-150)
[2024-11-03 09:35] LABS: Creatinine Urine, Random 64 mg/dL (28-217); Microalbum Creatinine Ratio Ur 31 mg/dL (0-20); Microalbumin Random Urine 2 ug/dL (0-20)
== END 2024-11-10 23:59 | disposition home or self-care (01) ==
PROVIDERS: Internal Medicine; PCP Nurse Practitioner; Visit Provider Internal Medicine Medical Oncology
DX: E11.65 Type 2 diabetes mellitus with hyperglycemia (principal); Z96.41 Presence of insulin pump (external) (internal); E78.2 Mixed hyperlipidemia; Z79.4 Long term (current) use of insulin
CPT/HCPCS: 36591; 80053; 80061; 82044; 83036; 96523

== ENCOUNTER 2024-12-01 10:05 | Oncology outpatient (recurring) (ONCR) | payer BC, SELFPAY | END 2024-12-11 23:59 | disposition home or self-care (01) | LOC: ONCMED 10:07 | PROVIDERS: PCP Nurse Practitioner; Visit Provider Internal Medicine Medical Oncology | DX: Z45.2 Encounter for adjustment and management of vascular access device (principal); Z95.828 Presence of other vascular implants and grafts | CPT/HCPCS: 96523 ==

== ENCOUNTER → 2024-12-18 09:14 | Outpatient (BNVA) | payer BC, SELFPAY | PROVIDERS: PCP Nurse Practitioner; Visit Provider Nurse Practitioner | DX: Z12.4 Encounter for screening for malignant neoplasm of cervix (principal) | CPT/HCPCS: 88175 ==

== ENCOUNTER 2024-12-29 08:58 | Oncology outpatient (recurring) (ONCR) | payer BC, SELFPAY | END 2025-01-11 23:59 | disposition home or self-care (01) | PROVIDERS: PCP Nurse Practitioner; Visit Provider Internal Medicine Medical Oncology | DX: Z45.2 Encounter for adjustment and management of vascular access device (principal); Z95.828 Presence of other vascular implants and grafts | CPT/HCPCS: 96523 ==

== ENCOUNTER 2025-02-05 16:11 | Oncology outpatient (recurring) (ONCR) | payer BC, SELFPAY ==
[2025-01-29 16:31] LABS: Hematocrit 42.3 % (36-47); Hemoglobin 13.80 g/dL (11.27-16.99); Mean Corpuscular HGB Conc 32.6 g/dL (30-55); Mean Corpuscular Hemoglobin 28.3 pg (27-33); Mean Corpuscular Volume 86.7 fl (85-98); Nucleated Red Blood Cells % 0 %; Platelet Count 247 10^3/cmm (157-399); Red Blood Count 4.88 10^6/uL (3.85-5.65); White Blood Count 12.33 10^3/uL (3.29-11.43)
[2025-01-29 16:50] LABS: Alanine Aminotransferase 36 U/L (0-33); Albumin Level 4.3 g/dL (3.5-5.2); Alkaline Phosphatase 104 U/L (35-105); Anion Gap 16.1 (5-19); Aspartate Amino Transferase 40 U/L (0-32); Blood Urea Nitrogen 14 mg/dL (6-20); Calcium 9.0 mg/dL (8.5-10.5); Carbon Dioxide 25 mmol/L (22-29); Chloride 99 mmol/L (98-107); Globulin 3.2 g/dL (1.3-4.6); Glucose 193 mg/dL (65-115); Osmolality Calculated 288 mOsm/kg (285-295); Potassium 4.1 mmol/L (3.5-5.1); Sodium 136 mmol/L (136-145); Total Protein 7.5 g/dL (6.6-8.7)
== END 2025-02-10 23:59 | disposition home or self-care (01) ==
PROVIDERS: Internal Medicine; PCP Nurse Practitioner; Visit Provider Internal Medicine Medical Oncology
DX: Z53.9 Procedure and treatment not carried out, unspecified reason (principal)
CPT/HCPCS: 36591; 80053; 83615; 85025

== ENCOUNTER 2025-03-06 09:04 | Oncology outpatient (recurring) (ONCR) | payer BC, SELFPAY | END 2025-03-13 23:59 | disposition home or self-care (01) | LOC: ONCMED 09:04 | PROVIDERS: PCP Nurse Practitioner; Visit Provider Internal Medicine Medical Oncology | DX: Z45.2 Encounter for adjustment and management of vascular access device (principal); Z95.828 Presence of other vascular implants and grafts | CPT/HCPCS: 96523 ==

== ENCOUNTER 2025-03-30 09:44 | Oncology outpatient (recurring) (ONCR) | payer BC, SELFPAY ==
[2025-03-30 10:44] LABS: Estmated Average Glucose 174; Hemoglobin A1C 7.7 % (4.0-6.0)
[2025-03-30 10:45] LABS: Alanine Aminotransferase 34 U/L (0-33); Albumin Level 4.5 g/dL (3.5-5.2); Alkaline Phosphatase 109 U/L (35-105); Anion Gap 14.5 (5-19); Aspartate Amino Transferase 20 U/L (0-32); Blood Urea Nitrogen 14 mg/dL (6-20); Calcium 9.5 mg/dL (8.5-10.5); Carbon Dioxide 28 mmol/L (22-29); Chloride 100 mmol/L (98-107); Cholesterol 136 mg/dL (0-200); Globulin 3.1 g/dL (1.3-4.6); Glucose 184 mg/dL (65-115); HDL Cholesterol 50 mg/dL (60-100); Osmolality Calculated 291 mOsm/kg (285-295); Potassium 4.5 mmol/L (3.5-5.1); Sodium 138 mmol/L (136-145); Total Protein 7.6 g/dL (6.6-8.7); Triglycerides 150 mg/dL (0-150)
[2025-03-30 10:56] LABS: Creatinine Urine, Random 56 mg/dL (28-217); Microalbum Creatinine Ratio Ur 18 mg/dL (0-20)
[2025-03-30 11:00] LABS: Vitamin B12 825 pg/mL (232-1245)
== END 2025-04-12 23:59 | disposition home or self-care (01) ==
PROVIDERS: Internal Medicine; PCP Nurse Practitioner; Visit Provider Internal Medicine Medical Oncology
DX: E78.2 Mixed hyperlipidemia (principal); I10 Essential (primary) hypertension; E55.9 Vitamin D deficiency, unspecified; E11.65 Type 2 diabetes mellitus with hyperglycemia; Z79.4 Long term (current) use of insulin
CPT/HCPCS: 36591; 80053; 80061; 82044; 82306; 82607; 83036

== ENCOUNTER 2025-05-04 09:34 | Oncology outpatient (recurring) (ONCR) | payer BC, SELFPAY ==
--- NOTE | 2025-05-04 10:30 | US_ITS ---
WS: [id number] Complete ABDOMINAL ULTRASOUND HISTORY: surveillance COMPARISON: 05/05/2024 Liver: 20.0 cm in length. Hepatomegaly with coarse echotexture throughout the liver. Loss of the normal portal triads. Deep liver is not visualized due to attenuation. Hepatic steatosis has progressed. No mass. Portal Vein: Normal hepatopetal flow with monophasic waveform. Gallbladder: Normally distended gallbladder with no stones or wall thickening. CBD: 0.3 cm Pancreas: Completely obscured. Right kidney: 11.5 cm x 7.3 x 5.0 cm. Cortex:1.1 cm. Normal size and echogenicity. No hydronephrosis or mass. Left kidney: 12.4 cm x 5.6 cm x 6.1 cm. Cortex: 1.0 cm. Normal size and echogenicity. No hydronephrosis or mass. Spleen: 12.7 cm. Normal size and echogenicity. Aorta and IVC: Unremarkable abdominal aorta and IVC. US/US abdomen complete* [id number] Impression: 1. Quality this examination is compromised by body habitus. 2. Prior cholecystectomy. 3. Hepatomegaly with hepatic steatosis. Hepatic steatosis does appear to have progressed since 05/05/2024. Limited evaluation of the entire liver. 4. No renal obstruction.
--- NOTE | 2025-05-04 11:15 | USCV_ITS ---
Jyoti Salazar Age: 49 Gender: F : 1975 Exam Date: 05/04/2025 10:53 Ordering Phys: Brianda Marshall APRN Technologist: Exam Location: [facility] – [place] Indication: high risk meds BP: 160 / 90 HR: Rhythm: Sinus Technical Quality: MEASUREMENTS (Male / Female) Normal Values 2D ECHO LV Diastolic Diameter PLAX 4.0 cm 4.2 - 5.9 / 3.9 - 5.3 cm IVS Diastolic Thickness 1.4 cm 0.6 - 1.0 / 0.6 - 0.9 cm IVS Systolic Thickness 1.9 cm LVPW Diastolic Thickness 1.3 cm 0.6 - 1.0 / 0.6 - 0.9 cm LVPW Systolic Thickness 1.6 cm LVOT Diameter 2.0 cm LV Ejection Fraction 2D Teich 68.9 % LV Ejection Fraction MOD 4C 56.9 % LV Ejection Fraction MOD 2C 58.7 % LV Ejection Fraction 2C AL 60.3 % LA Diameter 3.3 cm RA Systolic Volume 4C AL 26.2 ml RA Systolic Volume 4C MOD 23.9 ml Aorta at Sinotubular Diameter 2.4 cm M-MODE LA Ao Ratio MM 1.5 AV Cusp Separation MM 1.6 cm FINDINGS Left Ventricle Normal left ventricular size, systolic function and wall thickness, with no regional wall motion abnormalities. Left ventricular ejection fraction is estimated at 60 %. Right Ventricle Right Atrium Left Atrium IA Septum Mitral Valve Aortic Valve Tricuspid Valve Pulmonic Valve Pericardium Aorta IVC CONCLUSIONS Limited echocardiogram Normal left ventricular size, systolic function and wall thickness, with no regional wall motion abnormalities. Left ventricular ejection fraction is estimated at 60 %. Tapan Joseph MD (Electronically Signed) Final Date: 11 May 2025 00:18 S
--- NOTE | 2025-05-04 12:45 | US_ITS ---
WS: [id number] US pelv w/transvag [id number] HISTORY: surveillance COMPARISON: 04/03/2023, 05/05/2024 Uterus: 5.3 cm x 3.1 cm x 3.0 cm. Normal size anteverted uterus. No fibroid or mass. Endometrium: 0.5 cm. Limited visualization due to body habitus. Right ovary: 2.6 cm x 2.4 cm x 2.3 cm. Normal size and vascularity, no cystic or solid masses. Small follicle. Left ovary: 2.9 cm x 2.4 cm x 1.9 cm. Normal size and vascularity, no cystic or solid masses. No free fluid in the cul-de-sac. US/US pelv w/transvag [id number] IMPRESSION: 1. Quality of this exam is compromised by patient's body habitus. 2. Limited visualization of the endometrium. Normal size uterus. 3. No ovarian mass identified.
== END 2025-05-13 23:59 | disposition home or self-care (01) ==
PROVIDERS: PCP Nurse Practitioner; Visit Provider Internal Medicine Medical Oncology
DX: E78.2 Mixed hyperlipidemia (principal); I10 Essential (primary) hypertension; E55.9 Vitamin D deficiency, unspecified; E11.65 Type 2 diabetes mellitus with hyperglycemia; Z79.4 Long term (current) use of insulin; C50.911 Malignant neoplasm of unspecified site of right female breast; C50.912 Malignant neoplasm of unspecified site of left female breast; Z79.899 Other long term (current) drug therapy
CPT/HCPCS: 76700; 76830; 76856; 93308; 96523